=== PATIENT | male | born 1935 | race Caucasian/White ===

== ENCOUNTER 2020-02-09 02:34 | Outpatient (CLI) | payer MEDICARE, SELFPAY ==
--- NOTE | 2020-02-09 | DI.US_ITS ---
EXAM: US ABDOMEN RENAL CLINICAL HISTORY: H/O RENAL CELL CA RT [id number] AND PROSTATE CA, H/O NEPHRECTOMY TECHNIQUE: Ultrasound abdomen performed using standard protocol. COMPARISON: No exams were available for comparison FINDINGS: LIVER: Normal size and echogenicity. There is a 4 millimeter calcification in the posterior right lo be, likely representing a grand granuloma. No suspicious liver lesions are seen.. GALLBLADDER: No evidence of cholelithiasis. No evidence of wall thickening. No pericholecystic fluid identified. BILIARY SYSTEM: No intrahepatic or extrahepatic biliary ductal dilation. GREENE'S SIGN: Negative. KIDNEYS: Status post right nephrectomy. Left kidney: Left kidney shows mild compensatory hypertrophy, measuring 13.3 cm in length. Several s mall cysts are seen. The largest is in the midportion measuring 2.3 cm in greatest dimension. A 7 m illimeters stone is seen at the upper pole. Few other smaller calcifications are seen. There is no evidence of hydronephrosis. No suspicious mass is visible.. PANCREAS: Normal where visualized. SPLEEN: Not enlarged. Multiple small calcifications, consistent calcified granulomas. ABDOMINAL AORTA AND IVC: Visualized portions normal caliber. ASCITES: None seen. Bladder: Prevoid bladder bladder volume 123 cc. 0 cc postvoid residual. No bladder wall thickening, mass or calcification. Prostate: Not visualized. IMPRESSION: Status post right nephrectomy. Nonobstructing renal calculi. Several small renal cysts. No hydrone phrosis or mass. DATA REPOSITORY:
== END 2020-02-09 02:54 ==
PROVIDERS: PCP Family Medicine; Visit Provider Family Medicine
DX: C64.1 Malignant neoplasm of right kidney, except renal pelvis (principal); C61 Malignant neoplasm of prostate; Z90.5 Acquired absence of kidney; K76.89 Other specified diseases of liver; N20.0 Calculus of kidney; N28.1 Cyst of kidney, acquired
CPT/HCPCS: 76770; 76700

== ENCOUNTER → 2020-05-10 14:38 | Outpatient (BNVA) | payer MEDICARE, SELFPAY | PROVIDERS: PCP Family Medicine; Referring Provider Family Medicine; Visit Provider Urology | DX: C61 Malignant neoplasm of prostate (principal); R53.83 Other fatigue; N20.0 Calculus of kidney; C64.9 Malignant neoplasm of unspecified kidney, except renal pelvis; I10 Essential (primary) hypertension; Z90.5 Acquired absence of kidney | CPT/HCPCS: 99204 ==

== ENCOUNTER 2020-05-10 16:10 | Outpatient (REF) | payer MEDICARE, SELFPAY ==
[2020-05-10 19:31] LABS: Abs Immature Grans 0.02 10^3/uL (0.0-0.06); Absolute Basophil Count 0.06 10^3/uL (0.0-0.2); Absolute Eosinophil Count 0.31 10^3/uL (0.0-0.7); Absolute Lymphocyte Count 0.81 10^3/uL (1.2-3.4); Absolute Monocyte Count 0.68 10^3/uL (0.1-0.8); Absolute Neutrophil Count 8.43 10^3/uL (1.2-6.7); Basophils % 0.6; HCT 47.6 % (40.0-50.0); HGB 15.9 g/dL (13.5-17.5); Immature Grans % 0.2; Lymphocytes % 7.9; MCH 31.7 pg (27.0-33.0); MCHC 33.4 % (32.0-36.0); MCV 94.8 fL (80-95); MPV 10.5 fL (8.0-11.0); Monocytes % 6.6; Neutrophils % 81.7; Nucleated RBC 0 %; Platelet Count 206 10^3/uL (130-400); RBC 5.02 10^6/uL (4.36-5.78); RDW 12.1 % (11.8-14.1); RDW-SD 41.9 fL; WBC 10.31 10^3/uL (4.4-10.8)
[2020-05-10 23:53] LABS: ALT 22 U/L (16-63); AST 19 U/L (15-37); Albumin 3.7 g/dL (3.4-5.0); Alkaline Phosphatase 76 U/L (46-116); Anion Gap 9.2 mmol/L (3-11); BUN 19 mg/dL (7-18); Bilirubin, Total 0.5 mg/dL (0.2-1.0); CO2 26.8 mmol/L (21.0-32.0); CREATININE 1.17 mg/dL (0.70-1.30); Calcium 9.4 mg/dL (8.5-10.1); Chloride 105 mmol/L (98-107); Estimated GFR 59.54 (mL/min/1.73m2); Glucose 94 mg/dL (74-106); Potassium 4.5 mmol/L (3.5-5.1); Sodium 141 mmol/L (136-145); Total Protein 7.2 g/dL (6.4-8.2)
[2020-05-13 12:40] LABS: PSA, Diagnostic 0.6 ng/mL (0.0-6.5)
== END 2020-05-10 16:30 ==
LOC: LBN 16:10
PROVIDERS: PCP Family Medicine; Visit Provider Urology
DX: R53.83 Other fatigue (principal); C61 Malignant neoplasm of prostate
CPT/HCPCS: 80053; 84153; 84443; 85025

== ENCOUNTER 2020-05-11 15:54 | Emergency (ER) | payer MEDICARE, SELFPAY ==
[2020-05-11 15:59] VITALS: BP 155/81; PULSE 72; RESP 16; TEMP 36.6; O2SAT 97
--- NOTE | 2020-05-11 16:00 | DI.RAD_ITS ---
EXAM: XR FINGER LT RING EXAM DATE/TIME: CLINICAL HISTORY: Laceration R/O fracture. TECHNIQUE: 2D digital imaging was performed. COMPARISON: None. FINDINGS: BONES: No acute fracture is present. No bony destructive lesion is seen. JOINTS: No dislocation is present. SOFT TISSUE: There is a soft tissue defect at the medial aspect of the tip of the left ring finger. The soft tissue defect appears to extend to the underlying bone. No radiopaque foreign bodies are se en in the soft tissues. IMPRESSION: 1. No evidence of acute fracture or dislocation. 2. Soft tissue defect in the medial aspect of the tip of the left finger which appears to extend to t he underlying bone. DATA REPOSITORY: RADIATION DOSE DELIVERED:
--- NOTE | 2020-05-11 16:11 | ED.GENADUL_ITS ---
Discharge Plan Disposition Patient Disposition: HOME Condition: Stable Discharge Details Clinical Impression: Laceration of left ring finger with damage to nail w/o foreign body Primary Care Provider: Kay Healy ED Provider: Brooklyn Moses Home Meds and New Rx's Prescriptions: No Action cholecalciferol (vitamin D3) 25 mcg (1,000 unit) capsule 25 mcg PO DAILY RF: 0 zinc 50 mg tablet 50 mg PO DAILY RF: 0 losartan 100 mg tablet 100 mg PO DAILY RF: 0 ascorbate calcium (vitamin C) 500 mg tablet 1 gm PO DAILY RF: 0 Discharge Instructions Instructions: Finger Laceration (ED), Skin Adhesive Care (ED) Additional Instructions: The glue will start to slough off by itself in about 4 to 6 days. Keep clean and dry. You may gently clean it under running soap and water tomorrow. Allow to air dry at least 2 hours every day. Return for any signs of infection including redness, red streaks, swelling, drainage or any increased pain or concerns. The wound will heal by secondary intention. Follow up with primary care provider in 3-5 days. Return to ED sooner if any worsening or concerns. Increase oral fluids. Please take Tylenol or Ibuprofen w ith food every 4-6 hours as needed for pain and swelling. You were given a tetanus shot today. Referrals: Kay Healy [Primary Care Provider] - Medical Decision Making 84-year-old male presents to the ER with left ring finger laceration by a table saw which occurred approximately 2 hours ago. Patient has a wedge shaped laceration to the distal tip of his lateral nail bed. Bleeding is controlled upon arrival. He did take an Aleve prior to arrival. He does not know when his last tetanus shot was. He has full sensation and range of motion noted to the digit. No other complaints or injuries. Does have a past medical history of hypertension, kidney stones, prostate cancer and renal cell carcinoma. FINDINGS: Bones/joints: No acute fracture or dislocation. Soft tissues: There is a soft tissue defect with subjacent soft tissue swelling at the tip of ring finger, most pronounced medially with a defect c encroaches upon underlying osseous bone. IMPRESSION: Soft tissue defect/ulceration in tip of ring finger adjacent to distal phalanx with defect encroaches upon underlying osseous bone. No acute fracture or dislocation. Thank you for allowing us to participate in the care of your patient. Dictated and Authenticated by: Woodrow Greene DO [id number]: Tissue adhesive applied and patient tolerated well. junior staff accountant applied nonadherent dressing and discussed with patient home care and strict return instructions, verbalized understanding. HPI General Mode of arrival: ambulatory . Date/Time Provider Initiated Documentation: 05/11/20 16:07 . Limitations to Documentation: no limitations . Information obtained by: patient . HPI Narrative: 84-year-old male presents to the ER with left ring finger laceration by a table saw which occurred approximately 2 hours ago. Patient has a wedge shaped laceration to the distal tip of his lateral nail bed. Bleeding is controlled upon arrival. He did take an Aleve prior to arrival. He does not know when his last tetanus shot was. He has full sensation and range of motion noted to the digit. No other complaints or injuries. Does have a past medical history of hypertension, kidney stones, prostate cancer and renal cell carcinoma. Related Data Home Medications Medication Instructions Recorded Confirmed ascorbate calcium (vitamin C) 500 1 gm PO DAILY tab 03/18/20 05/11/20 mg tablet losartan 100 mg tablet 100 mg PO DAILY 03/18/20 05/11/20 cholecalciferol (vitamin D3) 25 25 mcg PO DAILY 05/10/20 05/11/20 mcg (1,000 unit) capsule zinc 50 mg tablet 50 mg PO DAILY 05/10/20 05/11/20 Allergies Allergy/AdvReac Type Severity Reaction Status Date / Time house dust Allergy Verified 05/11/20 16:01 General Stated Complaint: Laceration WOLFGANG: 4 Review of Systems All systems reviewed & are unremarkable except as noted in HPI and below Integumentary/Breasts Skin/Breast: Reports wounds (Left ring finger distal tip laceration) FORMERLY [facility], [facility] Medical History Actinic keratosis Hypertension Kidney stones Prostate cancer Renal cell carcinoma Surgical History H/O prostatectomy H/O right nephrectomy History of appendectomy Hx of tonsillectomy Social History Smoking/Tobacco Use Status: Never Alcohol Intake: never Substance use type: does not use Current gender identity: male Exam Narrative Exam Narrative: Constitutional: Alert and oriented x3. Appears stated age. Normal body habitus. Head: Normocephalic, no trauma. Chest: RRR, Normal S1, S2, distal pulses intact. Resp: Lungs clear to auscultation bilaterally, no wheezes, rales, or rhonchi. Skin: Capillary refill less than 2 sec. See skin assessment below Neurologic: Cranial nerves II-XII intact. Alert and oriented x 3. DTR's intact. Hematologic/Lymphatic: No ecchymosis, no lymphadenopathy. Skin Trauma: laceration left distal 4th finger Y-shaped, involves subcutaneous tissue and sensation intact Extrem Hand/finger images: 1. Approximately 1 cm wedge-shaped laceration noted to the distal tip of his left ring finger. Course Vital Signs Vital signs: Vital Signs Temperature 36.6 C 05/11/20 15:59 Pulse 72 05/11/20 15:59 Respiratory Rate 16 05/11/20 15:59 Blood Pressure 155/81 H 05/11/20 15:59 Pulse Oximetry 97 05/11/20 15:59 Temperature 36.6 C 05/11/20 15:59 Temperature Source Skin 05/11/20 15:59 Pulse 72 05/11/20 15:59 Respiratory Rate 16 05/11/20 15:59 Respiratory Effort Non-Labored 05/11/20 15:59 Blood Pressure 155/81 H 05/11/20 15:59 Blood Pressure Position Sitting 05/11/20 15:59 Pulse Oximetry 97 05/11/20 15:59 Oxygen Delivery Method Room Air 05/11/20 15:59 Oxygen Flow Rate 0 05/11/20 15:59 Pain Level 0 05/11/20 15:59
--- NOTE | 2020-05-11 16:50 | DI.VRAD_ITS ---
PROCEDURE INFORMATION: Exam: XR Left Finger(s) Exam date and time: 05/11/2020 4:39 PM Age: 84 years old Clinical indication: Other: Laceration, R/O FX TECHNIQUE: Imaging protocol: XR Left fingers. Views: Minimum 2 views. COMPARISON: No relevant prior studies available. FINDINGS: Bones/joints: No acute fracture or dislocation. Soft tissues: There is a soft tissue defect with subjacent soft tissue swelling at the tip of ring finger, most pronounced medially with a defect c encroaches upon underlying osseous bone. IMPRESSION: Soft tissue defect/ulceration in tip of ring finger adjacent to distal phalanx with defect encroaches upon underlying osseous bone. No acute fracture or dislocation. Dictated and Authenticated by: Woodrow Greene MD. Ordering:ANGELINE Barahona MD
== END 2020-05-11 17:05 | disposition home or self-care (01) ==
PROVIDERS: Emergency Provider Registered Nurse Emergency; PCP Family Medicine
DX: S61.311A Laceration without foreign body of left index finger with damage to nail, initial encounter (principal); W31.2XXA Contact with powered woodworking and forming machines, initial encounter; I10 Essential (primary) hypertension
CPT/HCPCS: 12001; 90471; 73140

== ENCOUNTER 2020-08-20 23:29 | Outpatient (REF) | payer MEDICARE, SELFPAY ==
[2020-08-20 21:27] LABS: Anion Gap 7.2 mmol/L (3-11); BUN 25 mg/dL (7-18); CO2 26.8 mmol/L (21.0-32.0); CREATININE 1.17 mg/dL (0.70-1.30); Chloride 107 mmol/L (98-107); Estimated GFR 59.54 (mL/min/1.73m2); Glucose 95 mg/dL (74-106); Potassium 4.2 mmol/L (3.5-5.1); Sodium 141 mmol/L (136-145)
== END 2020-08-20 23:49 ==
LOC: LBN 23:29
PROVIDERS: PCP Family Medicine; Visit Provider Family Medicine
DX: I10 Essential (primary) hypertension (principal)
CPT/HCPCS: 80048

== ENCOUNTER 2020-08-22 03:20 | Outpatient (CLI) | payer MEDICARE, SELFPAY ==
[2020-08-23 08:22] LABS: PSA, Diagnostic 0.5 ng/mL (0.0-6.5)
== END 2020-08-22 03:40 ==
PROVIDERS: PCP Family Medicine; Visit Provider Urology
DX: C61 Malignant neoplasm of prostate (principal)
CPT/HCPCS: 36415; 84153

== ENCOUNTER → 2020-08-30 13:01 | Outpatient (BNVA) | payer MEDICARE, SELFPAY | PROVIDERS: PCP Family Medicine; Referring Provider Family Medicine; Visit Provider Urology | DX: C61 Malignant neoplasm of prostate (principal); Z87.442 Personal history of urinary calculi; Z90.5 Acquired absence of kidney | CPT/HCPCS: 99213 ==

== ENCOUNTER 2021-01-24 02:18 | Outpatient (CLI) | payer MEDICARE, SELFPAY ==
[2021-01-24 16:55] LABS: PSA, Diagnostic 0.7 ng/mL (0.0-6.5)
== END 2021-01-24 02:19 | disposition home or self-care (01) ==
LOC: LBO 02:19
PROVIDERS: PCP Family Medicine; Visit Provider Urology
DX: C61 Malignant neoplasm of prostate (principal)
CPT/HCPCS: 36415; 84153

== ENCOUNTER → 2021-01-28 10:24 | Outpatient (BNVA) | payer MEDICARE, SELFPAY | PROVIDERS: PCP Family Medicine; Referring Provider Family Medicine; Visit Provider Urology | DX: C61 Malignant neoplasm of prostate (principal); N20.0 Calculus of kidney; C64.9 Malignant neoplasm of unspecified kidney, except renal pelvis; R53.83 Other fatigue | CPT/HCPCS: 99213; 99214 ==

== ENCOUNTER 2021-01-28 12:00 | Outpatient (REF) | payer MEDICARE, SELFPAY ==
[2021-02-05 14:41] LABS: 1,25-Dihydroxyvitamin D 44 pg/mL (18-64)
== END 2021-01-28 12:01 | disposition home or self-care (01) ==
LOC: LBN 12:00
PROVIDERS: PCP Family Medicine; Visit Provider Urology
DX: N20.0 Calculus of kidney (principal); R53.83 Other fatigue; C61 Malignant neoplasm of prostate; C64.9 Malignant neoplasm of unspecified kidney, except renal pelvis; K76.9 Liver disease, unspecified
CPT/HCPCS: 82652

== ENCOUNTER 2021-03-11 01:52 | Outpatient (CLI) | payer MEDICARE, SELFPAY ==
--- NOTE | 2021-03-11 07:45 | DI.US_ITS ---
Exam(s) US RENAL EXAM: US RENAL CLINICAL HISTORY: monitor known stone,RENAL CELL CA,C64.9,N20.0. TECHNIQUE: Gastelum scale, color and spectral Doppler were used. COMPARISON: No exams were available for comparison FINDINGS: Renal size in cm: Right: Surgically absent left: 14.1 cm by 6.4 x 6.6 cm Echogenicity: Normal Hydronephrosis: No Cyst or mass: Several small cysts. No suspicious masses. Nephrolithiasis: Stone at the upper pole of the left kidney is measured at 4 millimeters on today's e xam. Bladder:Nearly empty. Prevoid vol:8 cc Postvoid vol: Not performed Prostate surgically removed. IMPRESSION: 4 millimeter stone upper pole left kidney. No hydronephrosis. Status post right nephrectomy. DATA REPOSITORY:
== END 2021-03-11 02:12 ==
PROVIDERS: PCP Family Medicine; Visit Provider Urology
DX: C64.9 Malignant neoplasm of unspecified kidney, except renal pelvis (principal); N20.0 Calculus of kidney; Z90.5 Acquired absence of kidney
CPT/HCPCS: 76770

== ENCOUNTER 2021-04-23 12:04 | Outpatient (REF) | payer MEDICARE, SELFPAY ==
[2021-04-23 15:30] LABS: BUN 16 mg/dL (7-18); CREATININE 1.2 mg/dL (0.70-1.30); Calcium 9.1 mg/dL (8.5-10.1); Chloride 106 mmol/L (98-107); Estimated GFR 57.68 (mL/min/1.73m2); Glucose 93 mg/dL (74-106); Potassium 4.4 mmol/L (3.5-5.1); Sodium 143 mmol/L (136-145)
== END 2021-04-23 12:05 | disposition home or self-care (01) ==
LOC: NCHCN 12:04
PROVIDERS: PCP Family Medicine; Visit Provider Family Medicine
DX: I10 Essential (primary) hypertension (principal)
CPT/HCPCS: 80048

== ENCOUNTER 2021-05-01 02:53 | Outpatient (CLI) | payer MEDICARE, SELFPAY ==
[2021-05-01 09:09] LABS: Abs Immature Grans 0.02 10^3/uL (0.0-0.06); Absolute Basophil Count 0.05 10^3/uL (0.0-0.2); Absolute Eosinophil Count 0.26 10^3/uL (0.0-0.7); Absolute Lymphocyte Count 0.83 10^3/uL (1.2-3.4); Absolute Monocyte Count 0.56 10^3/uL (0.1-0.8); Absolute Neutrophil Count 6.69 10^3/uL (1.2-6.7); Basophils % 0.6; Eosinophils % 3.1; HCT 46.5 % (40.0-50.0); HGB 15.6 g/dL (13.5-17.5); Immature Grans % 0.2; Lymphocytes % 9.9; MCH 30.9 pg (27.0-33.0); MCHC 33.5 % (32.0-36.0); MCV 92.1 fL (80-95); MPV 9.6 fL (8.0-11.0); Monocytes % 6.7; Neutrophils % 79.5; Nucleated RBC 0 %; Platelet Count 176 10^3/uL (130-400); RBC 5.05 10^6/uL (4.36-5.78); RDW-SD 40.9 fL; WBC 8.41 10^3/uL (4.4-10.8)
[2021-05-01 22:05] LABS: PSA, Diagnostic 0.7 ng/mL (0.0-6.5)
== END 2021-05-01 02:54 | disposition home or self-care (01) ==
LOC: LBO 02:53
PROVIDERS: Urology; PCP Family Medicine; Visit Provider Internal Medicine Cardiovascular Disease
DX: C61 Malignant neoplasm of prostate (principal)
CPT/HCPCS: 36415; 84153; 85025

== ENCOUNTER 2021-05-05 09:28 | Emergency (ER) | payer MEDICARE, SELFPAY ==
[2021-05-05] VITALS (19 sets, daily range): BP systolic 114–163; BP diastolic 66–89; PULSE 54–89; RESP 9–16; TEMP 36.6; O2SAT 97–100
--- NOTE | 2021-05-05 09:00 | RT.EKG_ITS ---
APPROVED REPORT Exam: Resting ECG Reason for Exam: Chest pain Patient Location: E HR:69 bpm ECG Measurements Heart Rate 69 AXIS AK 149 P 62 QRSd 101 QRS -38 QT 411 T 35 QTc 441 Conclusion Sinus rhythm...normal P axis, V-rate 60- 99 Left axis deviation...QRS axis (-30,-90) Anterior infarct, possibly acute...ST >0.15mV, upright T, V2-V5 sinus rhythm at 69, ST elevation V1 V2 V3 consistent with anterior STEMI, [address] elevation noted in aVL, diffuse ST depression present
--- NOTE | 2021-05-05 09:10 | ED.GENADUL_ITS ---
Discharge Plan Disposition Patient Disposition: [facility] Discharge Details Clinical Impression: ST elevation (STEMI) myocardial infarction Primary Care Provider: Kay Healy ED Provider: Yuko Rowland Home Meds and New Rx's Prescriptions: No Action vitamin K2 100 mcg capsule 100 mcg PO DAILY RF: 0 cholecalciferol (vitamin D3) 25 mcg (1,000 unit) capsule 25 mcg PO DAILY RF: 0 zinc 50 mg tablet 50 mg PO DAILY RF: 0 losartan 100 mg tablet 50 mg PO DAILY RF: 0 ascorbate calcium (vitamin C) 500 mg tablet 1 gm PO DAILY RF: 0 metoprolol succinate 25 mg tablet extended release 24 hr 25 mg PO DAILY RF: 0 aspirin 81 mg tablet,delayed release (DR/EC) 81 mg PO DAILY RF: 0 Discharge Data Discharge Date/Time-TO BE ENTERED AT DEPARTURE: 05/05/21 10:41 Medical Decision Making Eric Mead is an 85-year-old man with a history of hypertension who presented to the emergency department chest pain. On exam patient is well and nontoxic- appearing. Benign cardiopulmonary exam. EKG shows STEMI. Plan for telemetry, IV placement, IV nitroglycerin infusion, screening labs, chest x-ray, cardiology consult. Exam/history at this time is not consistent with acute aortic pathology, sepsis, acute emergent intra-abdominal process, acute emergent intracranial process, pulmonary embolism. Patient denies any prior intracranial bleeding, known brain vascular abnormality, known brain malignancy, any surgery within the past 3 months, any active bleeding, including bloody/black diarrhea, any head trauma from the past 3 months, any prior lytic therapy, any history of stroke, recent CPR, recent vascular punctures, peptic ulcer disease, current anticoagulants. 0934 [facility] transfer [place] contacted, awaiting cardiology callback. Chest x-ray resulted as no acute process. 0945: Discussed patient with Dr. Ken of cardiology, initial recommendation for Plavix 300 mg, heparin bolus and infusion, hold lytics with plan for helicopter transfer. During same phone conversation change in plan based on helicopter transport time, plan for Plavix 75 mg, heparin bolus and infusion, tenecteplase lysis 20 mg IV, repeat EKG after lytics. On patient reassessment patient reporting 1 out of 10 chest pain on 5 mics per minute nitroglycerin infusion. Patient signed written consent for tenecteplase after risks and benefits discussed, including risks of intracranial bleeding, . I was notified by nursing that patient received 300 mg Plavix instead of change dose to 75 mg. I did discuss this with Dr. Ken of cardiology at [facility], who requests no change in plan otherwise, continue with heparin bolus and infusion continue with tenecteplase at 20 mg. Patient status discussed with patient's over the phone, all questions were answered. Patient reports mild increase in pressure sensation in chest from 1 out of 10 to 3 out of 10. Nitroglycerin increase to 10 mcg/min. Systolic blood pressure 116. Labs reviewed, troponin 0 0.13, potassium 3.8. DHART at bedside with patient, requesting 20 mEq p.o. potassium. Patient left the emergency department with DHART without further incident. Medical Records Medical records reviewed: Yes I reviewed the patient's medical records. Imaging Data Radiologic Study: Attestation: I personally reviewed and interpreted this imaging study as follows: Radiologist's impression: EXAM: XR PORTABLE CHEST AP CLINICAL HISTORY: chest pain TECHNIQUE: 2D digital imaging was performed. COMPARISON: No exams were available for comparison FINDINGS: LUNGS: Clear. Small portion of lung bases not included on the film. No pleural abnormality seen. HEART: Normal. Aorta tortuous. BONES: Degenerative changes. IMPRESSION: No acute pulmonary findings. Lab Data Lab results reviewed: Yes I reviewed the patient's lab results. Labs: Laboratory Tests Range/Units 05/05/21 05/05/21 05/05/21 09:44 09:44 09:44 WBC (4.4-10.8) 10^3/uL 8.76 RBC (4.36-5.78) 10^6/uL 5.36 Hgb (13.5-17.5) g/dL 16.5 Hct (40.0-50.0) % 48.8 MCV (80-95) fL 91.0 MCH (27.0-33.0) pg 30.8 MCHC (32.0-36.0) % 33.8 RDW (11.8-14.1) % 12.0 Plt Count (130-400) 10^3/uL 166 MPV (8.0-11.0) fL 9.8 Immature Gran % 0.5 Neutrophils % 82.4 Lymphocytes % 10.4 Monocytes % 4.0 Eosinophils % 2.1 Basophils % 0.6 Nucleated RBC % % 0 Absolute Neutrophils (1.2-6.7) 10^3/uL 7.23 H Absolute Lymphocytes (1.2-3.4) 10^3/uL 0.91 L Absolute Monocytes (0.1-0.8) 10^3/uL 0.35 Absolute Eosinophils (0.0-0.7) 10^3/uL 0.18 Absolute Basophils (0.0-0.2) 10^3/uL 0.05 PT Cancelled INR Cancelled APTT Cancelled Sodium (136-145) mmol/L 141 Potassium (3.5-5.1) mmol/L 3.8 Chloride (98-107) mmol/L 103 Carbon Dioxide (21.0-32.0) mmol/L 26.3 Anion Gap (3-11) mmol/L 11.7 H BUN (7-18) mg/dL 18 Creatinine (0.70-1.30) mg/dL 1.2 Estimated GFR/1.73 m2 (mL/min/1.73m2) 57.68 Glucose (74-106) mg/dL 144 H Calcium (8.5-10.1) mg/dL 9.4 Total Bilirubin (0.2-1.0) mg/dL 0.9 AST (15-37) U/L 18 ALT (16-63) U/L 21 Alkaline Phosphatase (46-116) U/L 81 Troponin I (<0.06) ng/mL 0.13 H* Total Protein (6.4-8.2) g/dL 7.5 Albumin (3.4-5.0) g/dL 4.0 Range/Units 05/05/21 05/05/21 10:10 12:35 WBC (4.4-10.8) 10^3/uL RBC (4.36-5.78) 10^6/uL Hgb (13.5-17.5) g/dL Hct (40.0-50.0) % MCV (80-95) fL MCH (27.0-33.0) pg MCHC (32.0-36.0) % RDW (11.8-14.1) % Plt Count (130-400) 10^3/uL MPV (8.0-11.0) fL Immature Gran % Neutrophils % Lymphocytes % Monocytes % Eosinophils % Basophils % Nucleated RBC % % Absolute Neutrophils (1.2-6.7) 10^3/uL Absolute Lymphocytes (1.2-3.4) 10^3/uL Absolute Monocytes (0.1-0.8) 10^3/uL Absolute Eosinophils (0.0-0.7) 10^3/uL Absolute Basophils (0.0-0.2) 10^3/uL PT 10.8 INR 1.1 APTT 23.1 Sodium (136-145) mmol/L Potassium (3.5-5.1) mmol/L Chloride (98-107) mmol/L Carbon Dioxide (21.0-32.0) mmol/L Anion Gap (3-11) mmol/L BUN (7-18) mg/dL Creatinine (0.70-1.30) mg/dL Estimated GFR/1.73 m2 (mL/min/1.73m2) Glucose (74-106) mg/dL Calcium (8.5-10.1) mg/dL Total Bilirubin (0.2-1.0) mg/dL AST (15-37) U/L ALT (16-63) U/L Alkaline Phosphatase (46-116) U/L Troponin I (<0.06) ng/mL Cancelled Total Protein (6.4-8.2) g/dL Albumin (3.4-5.0) g/dL ECG Data Attestation: I personally reviewed and interpreted this ECG (s) as follows: Interpretation: EKG 9: 34 shows sinus rhythm at 69, ST elevation V1 V2 V3 consistent with anterior STEMI, [address] elevation noted in aVL, diffuse ST depression present EKG 10: [address] elevation V1 V2 V3 consistent with anterior STEMI, no major change from prior today HPI General Mode of arrival: EMS . Date/Time Provider Initiated Documentation: 05/05/21 09:34 . Limitations to Documentation: no limitations . Information obtained by: patient, EMS, RN notes reviewed and old records reviewed . HPI Narrative: Eric Mead is an 85-year-old man with a history of renal cell carcinoma in the past, hypertension presenting to emergency department with chest pain. Patient reports that he sees Dr. Justice of [facility], and is scheduled to have a catheterization next week. He reports that he has been diagnosed with angina. Patient states that over the past few days he has been having a pressure sensation intermittently in his chest that he has felt was related to heartburn/indigestion. Patient reports that he has been taking baking soda for this and has had some relief. Patient reports that he woke up this morning with similar pain, took baking soda, did not have any relief. Patient reports the pain was initially quite sharp. He reports that pain has decreased significantly after having nitroglycerin x2 per EMS. He reports pain is now 2 out of 10 and is more of a pressure sensation that is sharp pain. He denies any other pain, shortness of breath, vomiting, diarrhea, fever, numbness, weakness. Patient reports that he has had only water and baking soda this morning. He did receive 324 mg of aspirin from EMS as well as nitroglycerin sublingual x2. Related Data Home Medications Medication Instructions Recorded Confirmed ascorbate calcium (vitamin C) 500 1 gm PO DAILY tab 03/18/20 05/05/21 mg tablet losartan 100 mg tablet 50 mg PO DAILY 03/18/20 05/05/21 cholecalciferol (vitamin D3) 25 25 mcg PO DAILY 05/10/20 05/05/21 mcg (1,000 unit) capsule zinc 50 mg tablet 50 mg PO DAILY 05/10/20 05/05/21 vitamin K2 100 mcg capsule 100 mcg PO DAILY 01/28/21 05/05/21 aspirin 81 mg PO DAILY 05/05/21 05/05/21 metoprolol succinate 25 mg PO DAILY 05/05/21 05/05/21 Allergies Allergy/AdvReac Type Severity Reaction Status Date / Time house dust Allergy Verified 05/05/21 09:38 General WOLFGANG: 4 Review of Systems Narrative: Review of constitutional: denies fevers Eyes: denies eye pain ENT: denies ear pain, dental pain, sore throat Cardiovascular: denies edema, reports chest pain Respiratory: denies SOB, cough GI: denies abdominal pain, vomiting, diarrhea : denies flank pain MSK: denies back pain, neck pain, arthralgias, myalgias Skin: denies rash Neuro: denies headaches, numbness, weakness PFSH Medical History Actinic keratosis Hypertension Kidney stones Prostate cancer Renal cell carcinoma Surgical History H/O prostatectomy H/O right nephrectomy History of appendectomy Hx of tonsillectomy Social History Smoking/Tobacco Use Status: Never Smoking risk assessment performed?: Yes Alcohol Intake: never Substance use type: does not use Current gender identity: male Do you feel safe at home: Yes Do you feel safe in your relationship?: Yes Exam Narrative Exam Narrative: Constitutional: well and [id number], pleasant, conversing normally HENT: head atraumatic/normocephalic/normal inspection, mucous membranes moist Eyes: conjunctiva normal, sclera normal, pupils 3mm b/l Neck: no stridor, normal ROM, trachea midline Chest: normal inspection Resp: normal work of breathing, LCTAB Cardio: normal rate, normal rhythm, no murmur appreciated GI: abdomen soft, non-tender, non-distended Back: normal inspection, no rash Skin: warm, dry, normal color, no rash Neuro: alert, not altered, grossly non-focal, normal tone Ext: no edema, no posterior calf TTP Psych: normal mood, normal affect, normal behavior Critical Care Time Critical Care Time Critical Care Time: Yes Total Critical Care Time: 35 Attestation: I have spent 35 minutes of critical care time with this critically ill patient including frequent bedside reassessments, management of IV infusions, and discussions with family and consultants.
--- NOTE | 2021-05-05 09:30 | DI.RAD_ITS ---
Exam(s) XR PORTABLE CHEST AP EXAM: XR PORTABLE CHEST AP CLINICAL HISTORY: chest pain TECHNIQUE: 2D digital imaging was performed. COMPARISON: No exams were available for comparison FINDINGS: LUNGS: Clear. Small portion of lung bases not included on the film. No pleural abnormality seen. HEART: Normal. Aorta tortuous. BONES: Degenerative changes. IMPRESSION: No acute pulmonary findings. DATA REPOSITORY: RADIATION DOSE DELIVERED:
[2021-05-05] MEDS: nitroGLYcerin in D5W 50 MG/250 ML BTL IV (09:53)
[2021-05-05] MEDS: Normal Saline Flush 10 ML SYR IVP (09:53)
[2021-05-05 09:57] LABS: Abs Immature Grans 0.04 10^3/uL (0.0-0.06); Absolute Basophil Count 0.05 10^3/uL (0.0-0.2); Absolute Eosinophil Count 0.18 10^3/uL (0.0-0.7); Absolute Lymphocyte Count 0.91 10^3/uL (1.2-3.4); Absolute Monocyte Count 0.35 10^3/uL (0.1-0.8); Absolute Neutrophil Count 7.23 10^3/uL (1.2-6.7); Basophils % 0.6; Eosinophils % 2.1; HCT 48.8 % (40.0-50.0); HGB 16.5 g/dL (13.5-17.5); Immature Grans % 0.5; Lymphocytes % 10.4; MCH 30.8 pg (27.0-33.0); MCHC 33.8 % (32.0-36.0); MPV 9.8 fL (8.0-11.0); Neutrophils % 82.4; Nucleated RBC 0 %; Platelet Count 166 10^3/uL (130-400); RBC 5.36 10^6/uL (4.36-5.78); WBC 8.76 10^3/uL (4.4-10.8)
[2021-05-05] MEDS: Tenecteplase 50 MG KIT 20 MG IVP (10:07)
--- NOTE | 2021-05-05 10:15 | RT.EKG_ITS ---
APPROVED REPORT Exam: Resting ECG Reason for Exam: chest pain Patient Location: E HR:62 bpm ECG Measurements Heart Rate 62 AXIS IN 153 P 65 QRSd 98 QRS -40 QT 424 T 68 QTc 431 Conclusion Sinus rhythm...normal P axis, V-rate 60- 99 Left anterior fascicular block...axis(240,-40), init forces inf Low voltage, precordial leads...precordial leads <1.0mV Borderline ST elevation, anterior leads...ST >0.15mV in V1-V4 sinus rhythm at 69, ST elevation V1 V2 V3 consistent with anterior STEMI, [address] elevation noted in aVL, diffuse ST depression present
[2021-05-05 10:21] LABS: ALT 21 U/L (16-63); AST 18 U/L (15-37); Alkaline Phosphatase 81 U/L (46-116); Anion Gap 11.7 mmol/L (3-11); BUN 18 mg/dL (7-18); Bilirubin, Total 0.9 mg/dL (0.2-1.0); CO2 26.3 mmol/L (21.0-32.0); CREATININE 1.2 mg/dL (0.70-1.30); Calcium 9.4 mg/dL (8.5-10.1); Chloride 103 mmol/L (98-107); Estimated GFR 57.68 (mL/min/1.73m2); Glucose 144 mg/dL (74-106); Potassium 3.8 mmol/L (3.5-5.1); Sodium 141 mmol/L (136-145); Total Protein 7.5 g/dL (6.4-8.2)
[2021-05-05 10:23] LABS: Troponin I 0.13 ng/mL (<0.06)
[2021-05-05 10:28] LABS: INR 1.1 (0.9-1.1); PTT Activated 23.1 sec (21.0-27.5); Prothrombin Time 10.8 sec (9.3-11.0)
[2021-05-05] MEDS: Potassium Chloride 20 MEQ TABCR PO (10:36)
== END 2021-05-05 10:41 | disposition short-term general hospital (02) ==
PROVIDERS: Emergency Provider Student in an Organized Health Care Education/Training Program; PCP Family Medicine
DX: I21.3 ST elevation (STEMI) myocardial infarction of unspecified site (principal)
CPT/HCPCS: 36415; 80053; 93005; 96365; 96366; 96367; 96375; 96376; 99291; 71045; 84484; 85025; 85610; 85730; 93010; J3101

== ENCOUNTER 2021-05-21 09:00 | Outpatient (RCR) | payer MEDICARE, SELFPAY ==
--- OUTSIDE RECORDS SUMMARY | 2021-05-21 14:50 | XMS_ITS ---
Care Plan - [facility] Created on:May 21, 2021 Patient:Eric Mead Sex:Male :[id number] Author Organization [facility] Address [address] [phone] Phone Care Team Providers Name Role Phone Miesha GARCIA Primary Care Provider [phone] SEE THE VISIT Luis M CHOPRA Unavailable +1 SEE THE VISIT Mynor CHOPRA, Brenda Unavailable +1 SEE THE VISIT
--- OUTSIDE RECORDS SUMMARY | 2021-05-21 14:50 | XMS_ITS ---
:1935 Author Organization [facility] Address [address] [address] Phone Care Team Providers Name Role Phone Jerryins DO Primary Care Provider +1 SEE THE VISIT Luis M CHOPRA Unavailable +1 SEE THE VISIT Brenda Lowe MD Unavailable +1 SEE THE VISIT Problems Includes: Active, inactive, and resolved Problems All Visits Onset Date - Resolved Date - Provider Condition St atus Time Time Actinic keratosis 11/20/2016 - Philippe Lowe MD Active 12:00AM Note: Unchanged Oth skin changes due to chr sun 11/20/2016 - 12:00AM Brenda Lowe MD Active exposure Note: Unchanged Essential Hypertension 10/23/2014 - 12:00AM Sy Rabins DO Active Tremor 10/23/2014 - 12:00AM Sy Rabins DO Active Large Intestine Neoplasm, 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 - 12: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 Sy Rabins DO Active - Tubular Adenoma Prostate Gland Neoplasm 09/05/2013 - 12:00AM Sy Rabins DO Active Malignant Never a Smoker 07/07/2011 - 12:00AM Tamiko Arroyo PA-C Active OTH CHR DRMTIT SOLAR RAD 07/07/2011 - 12:00AM Tamiko Arroyo PA-C Active Note: Stable Plan of Treatment Findings Encounter Date Ordered follow-up visit in 9 months New Patient/Consult with Melo Alas 11/19/2014 Ghanshyam CHOPRA Assessments Includes: Assessments for all patient encounters Findings Encounter Date Benign tubular adenoma of the large Subsequent Wellness Visi t - Medicare 11/18/2016 intestine with Sy Rabins DO Essential hypertension Subsequent Wellness Visit - Medicare 11/18/2016 with Etelvina Manley DO Malignant neoplasm of the prostate Subsequent Wellness Visit - Medicare 11/18/2016 gland with Etelvina Manley DO Familial (benign essential) tremor New Patient/Consult with Melo Alas 11/19/2014 Ghanshyam CHOPRA Essential hypertension Physical with Etelvina Manley DO 10/23/2014 Malignant neoplasm of the prostate Physical with Sy Jerryins D O 10/23/2014 gland Benign tubular adenoma of the large Physical with Etelvina Manley DO 09/05/2013 intestine Malignant neoplasm of the prostate Physical with Sy Jerryins D O 09/05/2013 gland Medical Equipment - Implanted Devices Includes: Current and historical DevicesNo Medical Equipment Recorded Medications Includes: Current and historical Medications Current Medications (continue as prescribed) Losartan Potassium 50 MG Oral Tablet 10/07/2020 Provider: Etelvina Manley DO Diagnosis: Take one tablet daily Suprep Bowel Prep Kit 17.5-3.13-1.6 GM/177ML Oral 10/27/2019 Provider: Mario Asencio MD Solution Diagnosis: as directed by the office KP Vitamin E 100 UNIT Oral Capsule 10/27/2019 Provider: Diagnosis: Past Medications on file Losartan Potassium 50 MG Oral Tablet 01/11/2020 - 10/07/2020 Pro vider: Etelvina Manley DO Diagnosis: Take one tablet daily Losartan Potassium 50 MG Oral Tablet 10/18/2019 - 01/11/2020 Pro vider: Etelvina Manley DO Diagnosis: Take one tablet daily Aspirin 81MG Oral Tablet Delayed Release 11/26/2017 - 10/27/2019 Provider: Diagnosis: Lipitor 10 MG Tablet 11/18/2015 - 12/03/2015 Provider: Etelvina Manley DO Diagnosis: Mixed hyperlipidemia Once a day Medication [facility] 11/23/2014 - 11/18/2016 Provide r: Diagnosis: Systolex Lisinopril 10 MG OR TABS 10/23/2014 - 11/23/2014 Provider: Etelvina Manley DO Diagnosis: HYPERTENSION NOS Suprep Bowel Prep Kit 09/12/2013 - 10/23/2014 Provider: Ra rayshawn June MD 17.5-3.13-1.6 GM/177ML OR SOLN Diagnosis: per physicians instructions Aspirin 325 MG OR TABS 09/05/2013 - 11/26/2017 Provider: Diagnosis: Medications Administered Includes: Administered Medications in patient's chartNo Administered Medications Recorded Vital Signs Includes: Vital Signs from 05/21/2018 through 05/21/2021 Vital Name 10/27/2019 09:15A 10/17/2019 10:02A Height (in) 70 70 Weight (lb) 183.4 182 Body Mass Index (kg/m2) 26.3 26.1 Body Surface Area (m2) 2.01 2.01 Blood Pressure Sitting R 160/90 BP Cuff Size Regular Pulse Rate-Sitting (bpm) 74 Pulse Rhythm Regular Oxygen Saturation (%) 96 Note: cc:jerryins Results Includes: Results from 05/21/2018 through 05/21/[address] [facility] Ordered by Mario Asencio MD on 11/01/[address] [place] [address], [facility] Collected: 11/01/2019 Reported: 11/06/2019 tel: 16:04 Surgical Pathology See Note None Note: [facility] [address] [place] [address] Fax: [email or web address] Surgical Pathology Report [facility] ([facility]) PATIENT: DUONG MYERS Specimen #: [id number] [facility] Rec #: [id number] (Age)/Sex: 1935 (Age: 84) M Obtained: 11/01/2019 Received: 11/03/2019 Reported: 11/06/2019 Physician: Mario Asencio MD Location: [facility] Testing [place] [address], unless otherwise indicated. Diagnosis: Colon , descending, polypectomy [id number]: - Tubular adenomas, low grade. [facility]/11/05 Tonny Quinones M.D.,Ph.D Report Electronically Signed Spec imen(s) Received: A:Colon, descending, polypectomy [id number] Clinical History: High risk colon cancer surveillance: Personal history of colonic polyps A. p olyp x2 Microscopic Description: Additional deeper levels are performed in the evalu ation of this specimen supporting the above mentioned diagnosis. Gross Description: Received is one glass slide(s) and one block(s) labeled with patient's name and accession number [id number]. Technical component performed at [facility], [address] [facility] [address]. Also received is the corresponding requisition. Per clinician's report, the gross description is as foll ows: Specimen received in formalin labeled with the patient's name and . Specime n consists of 3 piece(s) of tang tissue measuring 1.0 x 0.5 x 0.2 cm in aggregat e. The specimen is submitted in 1 cassette. The PC portion of this specimen was perf ormed by [employer], [address] [place] [address]. VEU/veu/11/02 END OF REPORT Reviewed by Mario Asencio MD on 11/07/2019 ; All test results are final unless otherwise noted. SPECIAL NOTE [facility] Ordered by Etelvina Manley DO on 10/17/[address], [address], [address] Collected: 10/20/2019 Reported: tel: 10/20/2019 17:49 SPECIAL NOTE See Note None Note: Requisition# [id number] failed to ma tch an existing report with that requisition number. To avoid a potential conflict, t he requisition number reported in the HL7 messages will be changed to {[id number]} . Reviewed on 11/03/2019; All test result s are final unless otherwise noted. Occult Blood (MCR Screen) Fecal, [facility] Immunoassay Ordered by Etelvina Manley DO on 10/17/[address], [place] [address], [place], [address] Collected: 10/17/2019 Reported: 10/20/2019 tel:[phone] 17:31 Occult Scr/Immunoassay Negative (NEGATIVE) None Reviewed on 11/03/2019; All test result s are final unless otherwise noted. Reported Physicians [facility] Ordered by Etelvina Manley DO on 10/17/[address], [facility] [address], [place], [address] Collected: 10/17/2019 Reported: 10/20/2019 tel:[phone] 17:49 Reported Physicians See Note None Note: Reported Physicians:Ordering: Etelvina LancasterAttending: ETELVINA MANLEY Reviewed on 11/03/2019; All test result s are final unless otherwise noted. T4 Free [facility] Ordered by Etelvina Manley DO on 09/25/[address], [place] [address], [place], [address] Collected: 10/09/2019 Reported: tel:[phone] 10/09/2019 13:38 FT4 1.32 ng/dl (0.83-1.74) None Reviewed by Etelvina Manley DO on 10/09/2019; All test results are final unless otherwise noted. T3 Free [facility] Ordered by Etelvina Manley DO on 09/25/[address], [place] [address], [place], [address] Collected: 10/09/2019 Reported: tel:[phone] 10/09/2019 13:38 FT3 314.44 pg/dl (230.00-420.00) None Reviewed by Miesha GARCIA on 10/09/2019; All test results are final unless otherwise noted. U/A-CII,Complete with reflx Culture Urine [facility] Ordered by Etelvina Manley DO on 09/25/[address], [place] [address], [place], [address] Collected: 10/09/2019 Reported: 10/09/2019 tel:[phone] 09:49 CII Screen Not Indicated None Mucus Present (Not Present) A (Abnormal) Squamous Epithelial 1.00 /HFP (0.00-4.00) None U-Bilirubin Negative (Negative) None U-Blood Negative (Negative) None U-Clarity Clear (Clear) None U-Color Yellow (Yellow,Straw,Colorless) None U-Glucose Negative (Negative) None U-Ketones Negative (Negative) None U-Leukocyte Esterase Negative (Negative) None U-Nitrite Negative (Negative) None U-PH 6.0 (5.0-8.0) None U-Protein Negative (Negative) None U-RBC 1.00 /HPF (0.00-2.00) None U-Specific Altura 1.016 (1.000-1.060) None U-Urobilinogen Negative (Negative) None U-WBC 4.00 /HPF (0.00-4.00) None Reviewed by Etelvina Manley DO on 10/09/2019; All test results are final unless otherwise noted. PSA (SCREENING) [facility] Ordered by Miesha GARCIA on 09/25/[address], [place] [address], [place], [address] Collected: 10/09/2019 Reported: 10/09/2019 tel:[phone] 13:36 PSA (Screen) 0.47 ng/ml (0.00-4.00) None Note: Beginning 11/08/17 PSA'S are being performed using the Siemens [employer] XP chemiluminescent method. Values obtained from different assay methods cannot be used interchangeably. Reviewed by Etelvina Manley DO on 10/09/2019; All test results are final unless otherwise noted. TSH [facility] Ordered by Miesha GARCIA on 09/25/2019 [address] , [place] [address], [place], [address] Collected: 10/09/2019 Reported: tel:[phone] 10/09/2019 13:37 TSH3UL 2.483 mIu/mL (0.350-4.670) None Note: Effective 08/25/2010 , please note the change in TSH3UL reference range. Reviewed by Etelvina Manley DO on 10/09/2019; All test results are final unless otherwise noted. Comprehensive metabolic [facility] Ordered by Miesha GARCIA on 09/25/2019 [address] , [place] [address], [place], [address] Collected: 10/09/2019 Reported: 10/09/2019 tel:[phone] 13:07 A/G 2.2 (1.0-1.5) H (High) ALB 4.1 g/dL (3.2-4.8) None ALP 73 U/L (46-116) None ALT(PT) 13 U/L (10-49) None AST(OT) 18 U/L (0-34) None B/C Ratio 14.3 Ratio (12.0-20.0) None Bun 15 mg/dL (9-23) None Ca 9.1 mg/dL (8.7-10.4) None cGFR >60.00 ML/MIN/1.73M2 (>60.00) None Note: PLEASE NOTE: IF PATIENT IS OF AFRI CAN MOLDOVAN / BLACK DESCENT MULTIPLY RESULTS BY 1.210 CL 104 mmol/L (99-109) None Crea 1.1 mg/dL (0.7-1.3) None Glob 1.9 g/dL (1.9-3.7) None Glu 96 mg/dL (74-106) None K 4.3 mmol/L (3.5-5.5) None NA 139 mmol/L (132-146) None Tbil 0.8 mg/dL (0.0-1.2) None TCO2 31 mmol/L (20-31) None TP 6.0 g/dL (5.7-8.2) None Reviewed by Etelvina Manley DO on 10/09/2019; All test results are final unless otherwise noted. Lipid Profile w/Reflex Direct LDL(Q#[id number], [facility] LC#[id number]) Ordered by Etelvina Manley DO on 09/25/[address], [address], [place], [address] Collected: 10/09/2019 Reported: 10/09/2019 tel:[phone] 13:07 DHDL 62 mg/dL None Note: Low (undesirable, high risk) < 40H igh (desirable, low risk) >60 Chol 182 mg/dL (10-200) None Note: DESIRABLE - < 200Borderline - 200 - 240High - > 240 HDL Risk 2.9 (0.0-5.0) None LDL 97.4 (<99.0) None TGL 114 mg/dL (0-150) None Note: Normal < 150B orderline High- 150 - 199High- 200 - 499Very High- > 500 Reviewed by Etelvina Manley DO on 10/09/2019; All test results are final unless otherwise noted. CBC (inc diff and platelet count)(Q#[id number], [facility] LC#[id number]) Ordered by Etelvina Manley DO on 09/25/[address], [address], [place], [address] Collected: 10/09/2019 Reported: 10/09/2019 tel:[phone] 09:46 BA# 0.0 3/uL (0.0-0.2) None BA% 0.4 % (0.0-2.5) None EO# 0.2 3/uL (0.0-0.7) None EO% 2.3 % (0.0-7.0) None Hematocrit (Hct) 47.0 % (40.9-49.7) None Hemoglobin (Hgb) 15.8 g/dL (13.9-17.1) None IG# 0.04 x10*3/uL (0.00-0.03) H (High) IG% 0.50 % (0.00-1.00) None LY# 1.1 3/uL (0.5-3.2) None LY% 14.2 % (10.0-50.0) None MCH 30.7 Pg (26.0-33.0) None MCHC 33.6 g/dL (31.0-36.0) None MCV 91 fL (81-97) None MO# 0.6 3/uL (0.0-0.9) None MO% 7.1 % (0.0-12.0) None NE# 6.0 3/uL (2.0-7.8) None NE% 75.5 % (37.0-80.0) None NRBC# 0.00 3/uL (0.00-0.01) None NRBC% 0.00 % (0.00-0.20) None Platelet Count 190 3/uL (140-440) None Red Blood Cell Count (RBC) 5.15 6/uL (4.50-5.70) None RDW 11.9 % (11.5-14.5) None White Blood Cell Count (WBC) 7.9 3/UL (3.8-10.6) None Reviewed by Etelvina Manley DO on 10/09/2019; All test results are final unless otherwise noted. Reported Physicians [facility] Ordered by Etelvina Manley DO on 09/25/[address], [facility] [address], [place], [address] Collected: 10/09/2019 Reported: 10/09/2019 tel: 14:42 Reported Physicians See Note None Note: Reported Physicians:Ordering: Etelvina LancasterAttending: ETELVINA MANLEY Reviewed by Etelvina Manley DO on 10/09/2019; All test results are final unless otherwise noted. Hepatic Function Panel [facility] Ordered by Etelvina Manley DO on 06/10/[address], [address], [place], [address] Collected: 06/10/2018 Reported: tel: 06/10/2018 12:51 Note: cc: Melissa Do ALB 4.0 g/dL (3.2-4.8) None ALP 73 U/L (46-116) None ALT(PT) 16 U/L (10-49) None AST(OT) 20 U/L (0-34) None DBil 0.2 mg/dL (0.0-0.3) None Glob 2.1 g/dL (1.9-3.7) None IBIL 0.5 mg/dl (0.0-1.0) None Tbil 0.7 mg/dL (0.0-1.2) None TP 6.1 g/dL (5.7-8.2) None Reviewed on 06/13/2018; All test result s are final unless otherwise noted. Reported Physicians [facility] Ordered by Etelvina Manley DO on 06/10/[address], [address], [place], [address] Collected: 06/10/2018 Reported: 06/10/2018 tel: 13:00 Reported Physicians See Note None Note: Reported Physicians:Ordering: Etelvina LancasterAttending: Marifer MANLEY To: Melissa Do Reviewed on 06/13/2018; All test result s are final unless otherwise noted. PSA, Ultrasensitive [facility] Ordered by Etelvina Manley DO on 11/22/[address], [address], [place], [address] Collected: 06/10/2018 Reported: 06/13/2018 tel: 17:02 Note: cc: Melissa DoTESTING PERFORM ED AT: [facility], [address] [facility], [place], [place], [address], REAL ESTATE TRANSACTION COORDINATOR: GRISELDA SAMSON MD,PHD,[place] PSA, ICMA 0.23 NG/ML None Note: REFERENCE RANGES FOR PSA: LESS TH AN 0.10 NG/ML AFTER RADICAL PROSTATECTOMY. 4.0 NG/ML OR LESS IN HEALTHY MALES WITHO UT PROSTATECTOMY. PSA VALUES OBTAINED WITH DIFFERENT ASSAY METHODS OR KITSCANNOT BE USED INTERCHANGEABLY. THIS TEST WAS PERFORMED USING THE [employer] DXIM ETHOD. PSA, ICMA IS NOT TO BE USED A DIAGNOSTICPROCEDURE WITHOUT CONFIRMATION OF THE DIAGNOSIS BY ANOTHERESTABLISHED PRODUCT OR PROCEDURE. THE LOWER LIMIT OF ACCURATE QUANTIFICATION FOR THIS ASSAY IS0.02 NG/ML. PSA VALUES LESS THAN 0.02 NG/ML CANNOT BEACCURATELY MEASURED AND WILL BE REPORTED LESS THAN 0.02NG/ML. SPEC IMENS WITH PSA LEVELS BELOW THE LOWER LIMIT OFACCURATE QUANTIFICATION SHOULD BE CONS IDERED NEGATIVE. INPATIENTS WITH A NEGATIVE RESULT FOR POST PROSTATECTOMY P SA,SERIAL MONITORING OF PSA LEVELS AT REGULAR INTERVALS, ALONGWITH PHYSICAL EXAMINATIO NS AND OTHER TESTS, MAY HELP TODETECT RECURRENT PROSTATE CANCER. Psa,Ultrasen send out None Reviewed on 06/14/2018; All test result s are final unless otherwise noted. Reported Physicians [facility] Ordered by Etelvina Manley DO on 11/22/[address] [facility] [address], [place], [address] Collected: 06/10/2018 Reported: 06/13/2018 tel: 17:32 Reported Physicians See Note None Note: Reported Physicians:Ordering: Etelvina LancasterAttending: Marifer MANLEY To: Melissa Do Reviewed on 06/14/2018; All test result s are final unless otherwise noted. Social History Description Last Updated Amount of sleep was 8.0 hours/day 10/17/2019 DME in home: grab bars in shower/tub 10/17/2019 Exercising regularly 10/17/2019 Housing with smoke detectors 10/17/2019 Lives in private residence 10/17/2019 No caffeine use 10/17/2019 Not using alcohol 10/17/2019 Not using drugs 10/17/2019 Using a seatbelt 10/17/2019 Using sunscreen 10/17/2019 No tobacco use 12/09/2018 Smoking status : Never smoker 12/09/2018 Currently 09/12/2013 Lives with spouse 09/12/2013 Not using alcohol 09/12/2013 Retired from work 09/12/2013 Procedures and Surgical History Includes: Procedures from 05/21/2018 through 05/21/2021 Procedures Code Diagnosis Performing Service Location Service Date Provider Surg Path/Gross & 96[address] Other Mario MARIEG [place] 06/2020 Microscopic exam, hemorrhoids, Laboratory Level IV Benign neoplasm (Technical of descending Component) colon, 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 w/o bleeding Colonoscopy 57749 Benign neoplasm Mario Asencio MD [facility] 06/2020 W/removal of of descending [facility] Polyps colon, 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 w/o bleeding, [place] [address] Occlusion and Behzad Zepeda IMG Imaging B [facility] 10/27/2019 Extracranial stenosis of MD Artery (Waiver of bilateral carotid Liability arteries Statement on File) PQRI Most recent 3080F Malignant Etelvina Manley DO [facility] 2019 diastolic bp neoplasm of greater than or prostate, equal to 90mmH Essential (primary) hypertension, Unsp symptoms and signs w cognitive functions and awareness, Body mass index [BMI] 26.0-26.9, adult PQRI Most recent 3077F Malignant Etelvina Manley DO [facility] 2019 systolic bp neoplasm of greater than or prostate, equal to 140mmH Essential (primary) hypertension, Unsp symptoms and signs w cognitive functions and awareness, Body mass index [BMI] 26.0-26.9, adult Subsequent Annual G0439 Encntr for Etelvina Manley DO [facility] 10/17 Wellness Visit general adult medical exam w/o abnormal findings, Personal history of colonic polyps, Occlusion and stenosis of bilateral carotid arteries, Benign neoplasm of colon, unspecified Toz-Lophhbovh-Vajt G0328 Encounter for Etelvina Manley DO [facility] 0 10/17/2019 l Occult Blood Ia screening for Laboratory malignant neoplasm of oth sites Venipuncture 76763 Malignant Etelvina Manley DO [facility] [place] 10/09/2019 (Waiver of neoplasm of Laboratory Liability prostate, Statement on File) Essential (primary) hypertension, Vitamin D deficiency, unspecified Lab-Hemogram & 18277 Malignant Etelvina Manley DO [facility] 10/09/19 20 Platelet Count neoplasm of Laboratory (CBC) prostate, Essential (primary) hypertension, Vitamin D deficiency, unspecified Lab-Lipid/coronary 46677 Essential Etelvina Manley DO [facility] 09/23 Risk (primary) Laboratory hypertension, Malignant neoplasm of prostate, Vitamin D deficiency, unspecified Lab-Comprehensive 64235 Malignant Etelvina Manley DO [facility] [place] 10/09 Metabolic Panel neoplasm of Laboratory prostate, Essential (primary) hypertension, Vitamin D deficiency, unspecified Lab-Tsh 89707 Essential Etelvina Manley DO [facility] [place] 10/09/2019 (primary) Laboratory hypertension, Malignant neoplasm of prostate, Vitamin D deficiency, unspecified Lab-Prostate G0103 Encounter for Etelvina Manley DO [facility] 020 Cancer Screening screening for Laboratory malignant neoplasm of prostate Lab-Auto 69658 Malignant Etelvina Manley DO [facility] 10/09/2019 Urinalysis neoplasm of Laboratory prostate, Essential (primary) hypertension, Vitamin D deficiency, unspecified Lab-Triiodothyroni 90679 Malignant Etelvina Manley DO [facility] [place] 09/23 ne (t-3) Free neoplasm of Laboratory prostate, Essential (primary) hypertension, Vitamin D deficiency, unspecified Lab-Free T4 75739 Essential Etelvina Manley DO [facility] [place] 10/09/2019 (primary) Laboratory hypertension, Malignant neoplasm of prostate, Vitamin D deficiency, unspecified Lesion 46041 Actinic keratosis Philippe Lowe MD [facility] 12/09/2018 Destruction, [facility] Lesion [place] Lesion 40741 Actinic keratosis Philippe Lowe MD [facility] 12/09/2018 Destruction, Clinic 2nd-14th [place] Lab-Hepatic 51357 Malignant Etelvina Manley DO [facility] 06/10/2018 Function Panel neoplasm of Laboratory (Waiver of prostate Liability Statement on File) Venipuncture 27367 Malignant Etelvina Manley DO [facility] 06/10/2018 (Waiver of neoplasm of Laboratory Liability prostate Statement on File) Surgical History Last Updated History of appendectomy 09/12/2013 History of kidney surgery 09/12/2013 History of prostatectomy 09/12/2013 Medical History Includes: Medical History in patient's chart Description Last Updated History of cancer Right Kidney 09/12/2013 History of prostate cancer 09/12/2013 Family History Includes: Family History in patient's chart Description Last Updated Fraternal history of brother is alive was 4.0 10/17/19 20 3.0 children 10/17/2019 Children 10/17/2019 Paternal history of father 11/19/2014 Maternal history of mother 11/19/2014 Family history of breast cancer 09/12/2013 Family history of brother is alive 09/12/2013 Family history of children 3 09/12/2013 Family history of father 09/12/2013 Family history of mother 09/12/2013 Family history of prostate cancer 09/12/2013 Review of Systems Review of Systems not supported for this document typeNo Review of Systems Recorded Mental Status Mental Status not supported for this document typeNo Mental Status Recorded Functional Status Functional Status not supported for this document typeNo Functional Status Recorded Physical Exam Physical Exam not supported for this document typeNo Physical Exam Recorded Immunizations Includes: Immunizations in patient's chart Vaccine Dose # Date Site Reaction(s) Status Source Influenza, 1 07/30/2012 Left Arm Complete Patient Fluzone HD (Reported) Triv PCV 2 12/05/2008 Complete Patient (Pneumovax (Reported) 23) PCV 2 07/17/2009 Complete Patient (Pneumovax (Reported) 23) PCV 1 11/18/2016 Left Arm Complete [facility] (Pneumovax (Administered) [facility] 23) PCV 13 1 11/18/2015 Left Arm Complete [facility] (Prevnar) (Administered) [facility] Td 1 12/05/2008 Complete Patient (Reported) Tdap 1 11/18/2016 Right Arm Complete [facility] (Administered) [facility] Allergies Includes: Active, inactive, and resolved AllergiesNo Known Allergies Encounters Includes: Encounters from 05/21/2018 through 05/21/2021 Encounter Provider Location Date Check-In Check-Out Diagnosis Time Time [Patient Etelvina Manley 11/01/2019 11/01/2019 Encounter] DO 020 1:23PM 11:59PM Colonoscopy Mario Ellison Surgery 8:57AM 8:57AM [facility] 020 [Patient Etelvina Manley 10/27/2019 10/27/2019 Encounter] DO 020 12:37PM 11:59PM Ultrasound IMG Imaging [facility] 2:50PM 3:24PM Duplex Scan 020 Extracranial Carotid Nurse Visit- BP Mario Asencio IMG 9:09AM 9:29AM [facility] 020 injection, [place] dressing change [Patient Etelvina Manley 11/26/2017 10/17/2019 Encounter] DO 020 2:59PM 11:59PM [Patient Etelvina Manley 11/26/2017 11:59PM Encounter] DO 020 11:41AM Subsequent Etelvina [place] [facility] 11/26/2017 11:25AM Wellness Visit DO 020 10:00AM - Medicare [Patient Etelvina [place] 11/26/2017 12/09/2018 Encounter] DO Laboratory 020 12:00AM 11:59PM [Patient Etelvina Manley 11/26/2017 12/09/2018 Encounter] DO 020 2:01PM 11:59PM Office Visit Philippe MARIEG [facility] 11/26/2017 9:43AM Mynor Shields 019 9:20AM Insurance Includes: Active Insurance Policies Plan Name Member ID Group # Subscriber Relationship Effective Da lino 1 - Medicare Part [id number] Duong Myers Self B-Primary 2 - AAR Medicare [id number] Duong Myers Self - Supplement - Priv Unknown
--- OUTSIDE RECORDS SUMMARY | 2021-05-21 14:51 | XMS_ITS | Clinical Summary ---
:1935 Author Organization [facility] Address [address] [facility] [address] [place] [address] Phone Care Team Providers Name Role Phone Miesha DO Primary Care Provider [phone] Luis M CHOPRA Unavailable [phone] Brenda Lowe MD Unavailable [phone] Reason for Visit and Chief Complaint Colonoscopy [facility] Problems Includes: Problems addressed during this encounter and other active Problems All Visits Onset Date - Resolved [...] PA-C Active Note: Stable Plan of Treatment No Plan of Treatment Recorded Assessments Includes: Assessments from this encounterNo Assessments Recorded Medical Equipment - Implanted Devices Includes: Current DevicesNo Medical Equipment Recorded Medications Includes: Medications discussed during this encounter and other current Medications Current Medications (continue as prescribed) Losartan Potassium 50 MG Oral Tablet 10/07/2020 Provider: Teo Whiteside DO Diagnosis: Take one tablet daily Suprep Bowel Prep Kit 17.5-3.13-1.6 GM/177ML Oral 10/27/2019 Provider: Mario Asencio MD Solution Diagnosis: as directed by the office Vitamin E 100 UNIT Oral Capsule 10/27/2019 Provider: Diagnosis: Medications Administered Includes: Administered Medications from this encounterNo Administered Medications Recorded Results Includes: Results discussed during this encounterNo Results Recorded For Specified Dates Social History No Social History Recorded - Smoking Status Unknown Procedures and Surgical History Includes: Procedures from this encounter Procedures Code Diagnosis Performing Service Location Service Date Provider Colonoscopy 18964 Benign neoplasm Mario Ellison 06/2020 W/rem[facility] Polyps colon, 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 w/o bleeding, Other hemorrhoids Medical History Includes: Medical History addressed during this encounterNo Medical History Recorded Family History Includes: Family History addressed during this encounterNo Family History Recorded Review of Systems Includes: Review of Systems from this encounterNo Review of Systems Recorded Mental Status Includes: Mental Status from this encounterNo Mental Status Recorded Functional Status Includes: Functional Status from this encounterNo Functional Status Recorded Physical Exam Includes: Physical Exam from this encounterNo Physical Exam Recorded Allergies Includes: Active AllergiesNo Known Allergies Encounters Encounter Provider Location Date Check-In Check-Out Diagnosis Time Time Colonoscopy Mario Ellison 11/01/19 8:57AM 8:57AM [facility] 20 Insurance Includes: Active Insurance Policies Plan Name Member ID Group # Subscriber Relationship Effective Da lino 1 - Medicare Part [id number] Eric Mead Self B-Primary 2 - [facility] Medicare [id number] Eric Vergara - Supplement - Priv Unknown
--- OUTSIDE RECORDS SUMMARY | 2021-05-21 14:51 | XMS_ITS | Clinical Summary ---
:1935 Author Organization [facility] Address [address] [facility] [address] [place] [address] Phone Care Team Providers Name Role Phone Rabins DO Primary Care Provider +1 SEE THE VISIT Luis M CHOPRA Unavailable +1 SEE THE VISIT Brenda Lowe MD Unavailable +1 SEE THE VISIT Reason for Visit and Chief Complaint [Patient Encounter] Problems Includes: Problems addressed during this encounter [...] PA-C Active Note: Stable Plan of Treatment Pending Tests Order Diagnosis Results Due Ordering Provi santiago Radiology - US Carotid Duplex Occlusion and 10/25/20 Sy Rabins DO Ultrasound stenosis of bilateral carotid arteries Assessments Includes: Assessments from this encounterNo Assessments Recorded Medical Equipment - Implanted Devices Includes: Current DevicesNo Medical Equipment Recorded Medications Includes: Medications discussed during this encounter and other current Medications Current Medications (continue as prescribed) Losartan Potassium 50 MG Oral Tablet 10/07/2020 Provider: Teo Whiteside DO Diagnosis: Take one tablet daily Suprep Bowel Prep Kit 17.5-3.13-1.6 GM/177ML Oral 10/27/2019 Provider: Mario Bedoya Diagnosis: as directed by the office KP Vitamin E 100 UNIT Oral Capsule 10/27/2019 Provider: Diagnosis: Medications Administered Includes: Administered Medications from this encounterNo Administered Medications Recorded Results Includes: Results discussed during this encounterNo Results Recorded For Specified Dates Social History No Social History Recorded - Smoking Status Unknown Medical History Includes: Medical History addressed during [...] Allergies Encounters Encounter Provider Location Date Check-In Time Check-Out Time D iagnosis [Patient Teo Whiteside DO 10/30/2019 12:37PM 11:59PM Encounter] Insurance Includes: Active Insurance Policies Plan Name Member ID Group # Subscriber Relationship Effective Da lino 1 - Medicare Part [id number] Eric Mead Self B-Primary 2 - [facility] Medicare [id number] Eric Vergara - Supplement - Priv Unknown
--- OUTSIDE RECORDS SUMMARY | 2021-05-21 14:51 | XMS_ITS | Clinical Summary ---
:1935 Author Organization [facility] Address [address] [address] Phone Care Team Providers Name Role Phone [...] during this encounter and other current Medications New / Renewed during this visit Sy Gustavo s DO on 01/11/2020 Losartan Potassium 50 MG Oral Tablet Provider: Teo Whiteside 90 day supply: 90 tablet, 0 refills Diagnosis: Take one tablet daily [facility] [facility] [id number] - Current Medications (continue as prescribed) Losartan Potassium [...] Time D iagnosis [Patient Teo Whiteside DO 01/11/2020 1:23PM 11:59PM Encounter] Insurance Includes: Active Insurance Policies Plan Name Member ID Group # Subscriber Relationship Effective Da lino 1 - Medicare Part [id number] Eric Mead Self B-Primary 2 - [facility] Medicare [id number] Eric Mead Self - Supplement - Priv Unknown
--- OUTSIDE RECORDS SUMMARY | 2021-05-21 14:51 | XMS_ITS | Clinical Summary ---
:1935 Author Organization [facility] Address [address] [facility] [address] [place] [address] Phone Care Team Providers Name Role Phone Miesha DO Primary Care Provider [phone] Luis M CHOPRA Unavailable [phone] Brenda Lowe MD Unavailable [phone] Reason for Visit and Chief Complaint Office Visit Problems Includes: Problems addressed during this encounter [...] Bedoya Diagnosis: as directed by the office Vitamin [...] Recorded Allergies Includes: Active AllergiesNo Known Allergies Insurance Includes: Active Insurance Policies Plan Name Member ID Group # Subscriber Relationship Effective Da lino 1 - Medicare Part [id number] Eric Mead Self B-Primary 2 - [employer] Medicare [id number] Eric Slaughter Mead Self - Supplement - Priv Unknown
--- OUTSIDE RECORDS SUMMARY | 2021-05-21 14:51 | XMS_ITS | Clinical Summary ---
:1935 Author Organization [facility] Address [address] [facility] [address] [place] [address] Phone Care Team Providers Name Role Phone Rabrui DO Primary Care Provider [phone] Luis M CHOPRA Unavailable [phone] Brenda Lowe MD Unavailable [phone] Reason for Visit and Chief Complaint Ultrasound Duplex Scan Extracranial Carotid Problems Includes: Problems addressed during this encounter [...] during this encounter and other current Medications Discontinued / Stopped on this date on 11/26/2017 Aspirin 81MG Oral Tablet Delayed Release Provide r: Diagnosis: Current Medications (continue as prescribed) Losartan Potassium [...] this encounter Procedures Code Diagnosis Performing Service Service [place] [address] Occlusion and Issam D Souss[facility] 0 10/27/2019 Extracranial Artery stenosis of MD MCKINLEY (Waiver of bilateral Liability Statement carotid arteries on File) Medical History Includes: Medical History addressed during [...] Date Check-In Time Check-Out Time D iagnosis Ultrasound Duplex [facility] Imaging 2:50PM 3:24PM Scan Extracranial BRR 0 Carotid Insurance Includes: Active Insurance Policies Plan Name Member ID Group # Subscriber Relationship Effective Da lino 1 - Medicare Part [id number] Eric Mead Self B-Primary 2 - [facility] Medicare [id number] Eric Mead Self - Supplement - Priv Unknown
== END 2021-05-22 23:59 | disposition home or self-care (01) ==
LOC: CR 09:00
PROVIDERS: PCP Family Medicine; Visit Provider Family Medicine
DX: Z51.89 Encounter for other specified aftercare (principal); I25.2 Old myocardial infarction; Z95.5 Presence of coronary angioplasty implant and graft
CPT/HCPCS: S9472

== ENCOUNTER 2021-06-20 09:00 | Outpatient (RCR) | payer MEDICARE, SELFPAY | END 2021-06-22 23:59 | disposition home or self-care (01) | LOC: CR 09:00 | PROVIDERS: PCP Family Medicine; Visit Provider Family Medicine | DX: Z51.89 Encounter for other specified aftercare (principal); I25.2 Old myocardial infarction; Z95.5 Presence of coronary angioplasty implant and graft | CPT/HCPCS: S9472 ==

== ENCOUNTER 2021-07-21 09:00 | Outpatient (RCR) | payer MEDICARE, SELFPAY | END 2021-07-22 23:59 | disposition home or self-care (01) | LOC: CR 09:00 | PROVIDERS: PCP Family Medicine; Visit Provider Family Medicine | DX: Z51.89 Encounter for other specified aftercare (principal); I25.2 Old myocardial infarction; Z95.5 Presence of coronary angioplasty implant and graft | CPT/HCPCS: S9472 ==

== ENCOUNTER 2021-08-13 01:52 | Outpatient (CLI) | payer MEDICARE, SELFPAY ==
--- NOTE | 2021-08-13 13:44 | DI.US_ITS ---
APPROVED REPORT EXAM: Comprehensive 2D, Doppler, and color-flow Echocardiogram Patient Location: Out-Patient Supervisor Spinning: Hanh Webb RDCS (AE) Indications: CO, STEMI Other Information Study Quality: Adequate Conclusion Normal left ventricular wall thickness and chamber size. Estimated ejection fraction is 55 to 60%. There are no segmental wall motion abnormalities Normal right ventricular size and systolic function Both atria are normal in size The aortic valve is trileaflet and mildly sclerotic with trace to mild regurgitation. No aortic sten osis Normal mitral leaflets. Mild mitral annular calcification. Trace mitral regurgitation Normal tricuspid valve with trace to mild regurgitation. Normal estimated right ventricular pressure 25 mmHg Wall motion Left Ventricle The left ventricle is normal size. The left ventricular systolic function is normal. The left ventric ular ejection fraction is within the normal range. There is normal left ventricular wall thickness. T here is normal LV segmental wall motion. There is no ventricular septal defect visualized. LVEF is 55 -60%. Right Ventricle The right ventricle is normal size. The right ventricular systolic function is normal. The RVSP is 25 .1 mmHg. Atria The left atrium size is normal. The right atrium size is normal. The interatrial septum is intact wit h no evidence for an atrial septal defect. Aortic Valve The Aortic valve is sclerotic. Aortic valve is trileaflet. There is no aortic valvular stenosis. Trac e to mild aortic regurgitation. Mitral Valve The mitral valve is normal in structure. Mild mitral annular calcification. No evidence of mitral william ve stenosis. Trace mitral regurgitation. Tricuspid Valve The tricuspid valve is normal in structure. There is no tricuspid valve stenosis. Trace to mild tricu spid regurgitation. Pulmonic Valve Pulmonic valve is not well visualized. There is no pulmonic valvular stenosis. There is no pulmonic v alvular regurgitation. Great Vessels The aortic root is normal in size. Ascending aorta is not well visualized. IVC is normal in size and collapses >50% with inspiration. Pericardium There is no pericardial effusion. 2D Dimensions IVSD d PLAX 0.91 cm M: 0.6-1.2 LV Vol A2C d MOD 118.4 mL LVPW d PLAX 0.96 cm M: 0.6 - 1.2 LV Vol A4C d MOD 112.1 mL LVID d PLAX 5.15 cm M: 4.2 - 5.8 LA vol/ BSA A2C s A-L 23.9 mL/m2 LVDs 3.55 cm M: 2.5 - 4.0 LA vol/ BSA A4C s A-L 20.4 mL/m2 Ao Root d 3.03 cm M: 3.1 - 3.7 LA Vol/ BSA Biplane s A-L 23.2 mL/m2 RA Area A4C 11.32 cm2 LA Area A4C s MOD 15.44 cm2 RA Vol/ BSA A4C s A-L 13.6 mL/m2 LA Area A2C s MOD 15.88 cm2 LV EF Teichholz 58.1 % LV EF A4C MOD 56.8 % LVEF (Nair's) 57.69 % M: 52 - 72 LV EF A2C MOD 58.7 % LV Volume 88.28 mL M: 62 - 150 LV EF Biplane MOD 57.7 % LV Volume Index 46.46 mL/m2 M: 34 - 74 SV 66.79 mL LV Vol Biplane MOD 115.8 mL SV Index 35.09 mL/m2 FS 30.80 % M-Mode TAPSE 2.28 cm (M/F) >1.7 LV Diastology MV E' medial 0.082 (>0.07 m/s) E/A Ratio 0.6 LV E/e MED 6.10 (<14) MV E Vmax 0.50 (0.4-1.3 m/s) MV E' lateral 0.100 (>0.1 m/s) MV A Vmax 0.85 (0.4-1.3 m/s) LV E/e LAT 5.00 (<14) MV E/A Ratio 0.58 MV E/E' medial 6.12 MV E/E' lateral 5.00 Aortic Valve LVOT Area 3.44 cm2 AoV Area Vmax 2.45 cm2 LVOT Vmax 1.08 m/s AoV Area/ BSA (Vmax) 1.29 cm2/m2 LVOT Mean Joss. 0.66 m/s LIEN Mean Joss. 2.08 cm2 LVOT Peak Grad 4.7 mmHg LIEN Mean Joss. Index 1.09 cm2/m2 LVOT Mean Grad 2.1 mmHg AR DT 2836 msec LVOT VTI 0.225 m AR PHT 823 msec LVOT Diam s 2.05 cm AoV Vmax 1.52 m/s Velocity Ratio 0.71 AoV Mean Joss. 1.08 m/s AoV Peak Grad 9.2 mmHg LVOT SV 77.18 mL AoV Mean Grad 5.2 mmHg AoV VTI 0.318 m AoV Area VTI 2.43 cm2 AoV Area/ BSA (VTI) 1.28 cm/m2 Mitral Valve MV DT 399 (160-240 msec) MV PHT 116 msec MV Area PHT 1.90 cm2 MV VTI 0.300 m MV Area VTI 2.57 (4.0-6.0 cm2) Pulmonary Valve PV Vmax 1.00 (0.5-1.5 m/s) RVOT Peak Gr. 2.95 mmHg PV Peak Grad 4.0 mmHg RVOT Mean Gr. 1.50 mmHg PV Mean Grad 2.5 mmHg RVOT VTI 0.178 m PV VTI 0.207 m RVOT Vmax 0.86 m/s Tricuspid Valve TR Peak Grad 22.1 mmHg TR Vmax 2.35 m/s RA Pressure 3.00 mmHg RVSP (TR) 25.1 mmHg
== END 2021-08-13 02:12 ==
PROVIDERS: PCP Family Medicine; Visit Provider Internal Medicine Cardiovascular Disease
DX: I21.3 ST elevation (STEMI) myocardial infarction of unspecified site (principal); I08.2 Rheumatic disorders of both aortic and tricuspid valves
CPT/HCPCS: 93306

== ENCOUNTER 2021-08-18 09:00 | Outpatient (RCR) | payer MEDICARE, SELFPAY | END 2021-08-22 23:59 | disposition home or self-care (01) | LOC: CR 09:00 | PROVIDERS: PCP Family Medicine; Visit Provider Family Medicine | DX: Z51.89 Encounter for other specified aftercare (principal); I25.2 Old myocardial infarction; Z95.5 Presence of coronary angioplasty implant and graft | CPT/HCPCS: S9472 ==

== ENCOUNTER 2021-08-25 14:40 | Outpatient (RCR) | payer MEDICARE, SELFPAY | END 2021-09-22 23:59 | disposition home or self-care (01) | LOC: CR 14:40 | PROVIDERS: PCP Family Medicine; Visit Provider Family Medicine | DX: Z51.89 Encounter for other specified aftercare (principal); I25.2 Old myocardial infarction; Z95.5 Presence of coronary angioplasty implant and graft | CPT/HCPCS: S9472 ==

== ENCOUNTER → 2021-08-26 08:26 | Outpatient (BNVA) | payer MEDICARE, SELFPAY | PROVIDERS: PCP Family Medicine; Referring Provider Family Medicine; Visit Provider Nurse Practitioner Gerontology | DX: C61 Malignant neoplasm of prostate (principal); N20.0 Calculus of kidney | CPT/HCPCS: 36415; 99214 ==

== ENCOUNTER 2021-08-26 09:31 | Outpatient (REF) | payer MEDICARE, SELFPAY ==
[2021-08-26 19:15] LABS: PSA, Diagnostic 0.7 ng/mL (0.0-6.5)
== END 2021-08-26 09:32 | disposition home or self-care (01) ==
LOC: LBN 09:31
PROVIDERS: PCP Family Medicine; Visit Provider Nurse Practitioner Gerontology
DX: C61 Malignant neoplasm of prostate (principal)
CPT/HCPCS: 84153

== ENCOUNTER 2021-08-29 09:00 | Outpatient (RCR) | payer MEDICARE, SELFPAY | END 2021-09-18 16:41 | LOC: CR 09:00 | PROVIDERS: PCP Family Medicine; Visit Provider Family Medicine | DX: Z51.89 Encounter for other specified aftercare (principal); I25.2 Old myocardial infarction; Z95.5 Presence of coronary angioplasty implant and graft | CPT/HCPCS: S9472 ==

== ENCOUNTER 2021-09-05 08:24 | Outpatient (CLI) | payer MEDICARE, SELFPAY ==
--- NOTE | 2021-09-05 08:15 | RT.EKG_ITS ---
APPROVED REPORT Exam: Resting ECG Reason for Exam: CO Patient Location: O HR:65 bpm ECG Measurements Heart Rate 65 AXIS AK 149 P 69 QRSd 87 QRS -15 QT 375 T 82 QTc 390 Conclusion Sinus rhythm...normal P axis, V-rate 50- 99 Borderline left axis deviation...QRS axis (-15,-29) Nonspecific T abnrm, anterolateral leads...T <-0.10mV, I aVL V2-V6
== END 2021-09-05 08:25 | disposition home or self-care (01) ==
LOC: DI.CARD 08:24
PROVIDERS: PCP Family Medicine; Visit Provider Internal Medicine Cardiovascular Disease
DX: I25.2 Old myocardial infarction
CPT/HCPCS: 93010

== ENCOUNTER → 2021-09-05 13:14 | Outpatient (BNVA) | payer MEDICARE, SELFPAY | PROVIDERS: PCP Family Medicine; Referring Provider Family Medicine; Visit Provider Internal Medicine Cardiovascular Disease | DX: I25.10 Atherosclerotic heart disease of native coronary artery without angina pectoris (principal); I25.2 Old myocardial infarction; I10 Essential (primary) hypertension | CPT/HCPCS: 93005; 99203; 99214 ==

== ENCOUNTER 2022-02-20 02:43 | Outpatient (CLI) | payer MEDICARE, SELFPAY | END 2022-02-20 02:44 | disposition home or self-care (01) | LOC: LBO 02:44 | PROVIDERS: PCP Family Medicine; Visit Provider Nurse Practitioner Gerontology ==

== ENCOUNTER → 2022-03-02 12:42 | Outpatient (BNVA) | payer MEDICARE, SELFPAY | PROVIDERS: PCP Family Medicine; Referring Provider Family Medicine; Visit Provider Internal Medicine Cardiovascular Disease | DX: I25.10 Atherosclerotic heart disease of native coronary artery without angina pectoris (principal); I10 Essential (primary) hypertension | CPT/HCPCS: 99214; 99213 ==

== ENCOUNTER → 2022-05-06 01:04 | Outpatient (CLI) | payer MEDICARE, SELFPAY ==
--- NOTE | 2022-05-06 07:49 | DI.US_ITS ---
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 COMPARISON: US US ECHOCARDIOGRAM from 08/13/2021 FINDINGS: RIGHT KIDNEY: Surgically absent. LEFT KIDNEY: Measures 14 cm in length. There few small benign-appearing cysts in the left kidney, the largest juarez suring 2.3 x 2.2 x 1.8 cm. This is slightly below midpole level. No solid renal masses noted. Ther e is a small 7 millimeter echogenic focus in the superior pole region which may be a nonobstructive c alculus. There is no hydronephrosis. No perinephric fluid. Cortical thickness is normal. URINARY BLADDER: Not studied. Patient was apparently not able to prep IMPRESSION: 1. Small benign cysts in the left kidney. Nonobstructive 7 millimeter calculus in the upper pole of the ipsilateral left kidney. No hydronephrosis. 2. The opposite-right kidney is surgically absent. DATA REPOSITORY:
== END ==
PROVIDERS: PCP Family Medicine; Visit Provider Nurse Practitioner Gerontology
DX: N20.0 Calculus of kidney (principal); C64.1 Malignant neoplasm of right kidney, except renal pelvis; Z90.5 Acquired absence of kidney; N28.1 Cyst of kidney, acquired
CPT/HCPCS: 36415; 76770; 84153

== ENCOUNTER 2022-05-06 01:52 | Outpatient (CLI) | payer MEDICARE, SELFPAY ==
[2022-05-06 18:42] LABS: PSA, Diagnostic 0.8 ng/mL (<=6.5)
== END 2022-05-06 01:53 | disposition home or self-care (01) ==
LOC: LBO 01:52
PROVIDERS: PCP Family Medicine; Visit Provider Nurse Practitioner Gerontology
DX: C61 Malignant neoplasm of prostate (principal)
CPT/HCPCS: 36415; 84153

== ENCOUNTER → 2022-05-12 13:53 | Outpatient (BNVA) | payer MEDICARE, SELFPAY | PROVIDERS: PCP Family Medicine; Referring Provider Family Medicine; Visit Provider Nurse Practitioner Gerontology | DX: Z85.46 Personal history of malignant neoplasm of prostate (principal); Z85.528 Personal history of other malignant neoplasm of kidney; N20.0 Calculus of kidney | CPT/HCPCS: 99214 ==

== ENCOUNTER 2022-06-08 15:26 | Outpatient (REF) | payer MEDICARE, SELFPAY ==
[2022-06-08 19:10] LABS: HCT 45.7 % (40.0-50.0); HGB 15.7 g/dL (13.5-17.5); MCH 31.8 pg (27.0-33.0); MCHC 34.4 % (32.0-36.0); MCV 93 fL (80-95); MPV 10.6 fL (8.0-11.0); Platelet Count 191 10^3/uL (130-400); RBC 4.93 10^6/uL (4.36-5.78); RDW 11.9 % (11.8-14.1); RDW-SD 41.4 fL; WBC 8.95 10^3/uL (4.4-10.8)
[2022-06-08 19:21] LABS: Anion Gap 5.8 mmol/L (3-11); BUN 25 mg/dL (7-18); CO2 29.2 mmol/L (21.0-32.0); CREATININE 1.1 mg/dL (0.70-1.30); Calcium 9.2 mg/dL (8.5-10.1); Chloride 104 mmol/L (98-107); Estimated GFR 65.79 (mL/min/1.73m2); Glucose 117 mg/dL (74-106); Potassium 4.5 mmol/L (3.5-5.1); Sodium 139 mmol/L (136-145)
== END 2022-06-08 15:27 | disposition home or self-care (01) ==
LOC: NCHCN 15:26
PROVIDERS: PCP Family Medicine; Visit Provider Family Medicine
DX: I25.10 Atherosclerotic heart disease of native coronary artery without angina pectoris (principal); I10 Essential (primary) hypertension; C61 Malignant neoplasm of prostate
CPT/HCPCS: 80048; 85027

== ENCOUNTER → 2022-08-11 09:17 | Outpatient (BNVA) | payer MEDICARE, SELFPAY | PROVIDERS: PCP Family Medicine; Visit Provider Internal Medicine Cardiovascular Disease | DX: I25.10 Atherosclerotic heart disease of native coronary artery without angina pectoris (principal); I10 Essential (primary) hypertension; Z95.5 Presence of coronary angioplasty implant and graft; I25.2 Old myocardial infarction | CPT/HCPCS: 99214 ==

== ENCOUNTER 2023-01-13 05:18 | Outpatient (CLI) | payer MEDICARE, SELFPAY ==
[2023-01-13 12:10] LABS: ALT 23 U/L (16-63); AST 24 U/L (15-37); Alkaline Phosphatase 90 U/L (46-116); Anion Gap 7.3 mmol/L (3-11); BUN 22 mg/dL (7-18); Bilirubin, Total 0.8 mg/dL (0.2-1.0); CO2 30.7 mmol/L (21.0-32.0); CREATININE 1.2 mg/dL (0.70-1.30); Calcium 9.6 mg/dL (8.5-10.1); Chloride 105 mmol/L (98-107); Estimated GFR 58.89 (mL/min/1.73m2); Glucose 91 mg/dL (74-106); Potassium 4.8 mmol/L (3.5-5.1); Sodium 143 mmol/L (136-145); Total Protein 7.1 g/dL (6.4-8.2)
[2023-01-13 21:51] LABS: PSA, Diagnostic 1.2 ng/mL (<=6.5)
== END 2023-01-13 05:19 | disposition home or self-care (01) ==
LOC: LBO 05:18
PROVIDERS: PCP Family Medicine; Visit Provider Nurse Practitioner Gerontology
DX: C61 Malignant neoplasm of prostate (principal); C64.9 Malignant neoplasm of unspecified kidney, except renal pelvis
CPT/HCPCS: 36415; 80053; 84153

== ENCOUNTER → 2023-01-21 10:05 | Outpatient (BNVA) | payer MEDICARE, SELFPAY | PROVIDERS: PCP Family Medicine; Visit Provider Nurse Practitioner Gerontology | DX: Z85.46 Personal history of malignant neoplasm of prostate (principal); C64.9 Malignant neoplasm of unspecified kidney, except renal pelvis; N20.0 Calculus of kidney | CPT/HCPCS: 99214 ==

== ENCOUNTER → 2023-05-05 01:25 | Outpatient (CLI) | payer MEDICARE, SELFPAY ==
--- NOTE | 2023-05-05 07:15 | DI.US_ITS ---
Exam(s) US RENAL EXAM: US RENAL CLINICAL HISTORY: monitoring single kidney,calculi,prostate ca,kidney stone,renal cell ca,n20. TECHNIQUE: Gastelum scale, color and spectral Doppler were used. COMPARISON: US US RENAL from 05/06/2022 FINDINGS: Renal size in cm: Right: Status post right nephrectomy left: 14.0 Echogenicity: Normal Hydronephrosis: No Cyst or mass: Stable appearance of 2 cysts in the mid to lower left kidney. Stable appearance of 7 m illimeter stone upper pole left kidney. Nephrolithiasis: No Bladder:Normal. Left ureteral jet visualized. Prevoid vol: 139 Postvoid vol:0 Prostate surgically absent. IMPRESSION: Stable appearance renal cysts and upper pole calculus. No hydronephrosis. DATA REPOSITORY:
== END ==
PROVIDERS: PCP Family Medicine; Visit Provider Nurse Practitioner Gerontology
DX: C61 Malignant neoplasm of prostate (principal); C64.9 Malignant neoplasm of unspecified kidney, except renal pelvis; N20.0 Calculus of kidney
CPT/HCPCS: 36415; 76770; 84153; 84520; 82565

== ENCOUNTER 2023-05-05 03:27 | Outpatient (CLI) | payer MEDICARE, SELFPAY ==
[2023-05-05 14:54] LABS: BUN 18 mg/dL (7-18); CREATININE 1.2 mg/dL (0.70-1.30); Estimated GFR 58.89 (mL/min/1.73m2)
[2023-05-06 17:08] LABS: PSA, Ultrasensitive 1.7 ng/mL (<= 7.2)
== END 2023-05-05 03:28 | disposition home or self-care (01) ==
LOC: LBO 03:27
PROVIDERS: PCP Family Medicine; Visit Provider Nurse Practitioner Gerontology
DX: C61 Malignant neoplasm of prostate (principal); N20.0 Calculus of kidney; Z85.528 Personal history of other malignant neoplasm of kidney; I10 Essential (primary) hypertension
CPT/HCPCS: 36415; 84153; 84520; 82565

== ENCOUNTER → 2023-05-12 09:01 | Outpatient (BNVA) | payer MEDICARE, SELFPAY | PROVIDERS: PCP Family Medicine; Visit Provider Nurse Practitioner Gerontology | DX: R97.20 Elevated prostate specific antigen [PSA] (principal); Z85.528 Personal history of other malignant neoplasm of kidney; Z85.46 Personal history of malignant neoplasm of prostate; Z90.5 Acquired absence of kidney; I10 Essential (primary) hypertension; N20.0 Calculus of kidney | CPT/HCPCS: 99214 ==

== ENCOUNTER → 2023-08-20 09:29 | Outpatient (BNVA) | payer MEDICARE, SELFPAY | PROVIDERS: PCP Family Medicine; Visit Provider Internal Medicine Interventional Cardiology | DX: I25.10 Atherosclerotic heart disease of native coronary artery without angina pectoris (principal) | CPT/HCPCS: 99213 ==

== ENCOUNTER 2024-02-08 16:01 | Outpatient (CLI) | payer MEDICARE, SELFPAY ==
[2024-02-08 11:56] LABS: BUN 21 mg/dL (7-18); CREATININE 1.1 mg/dL (0.70-1.30); Estimated GFR 64.97 (mL/min/1.73m2)
[2024-02-09 17:39] LABS: PSA, Ultrasensitive 2.1 ng/mL (<= 7.2)
== END 2024-02-08 16:02 | disposition home or self-care (01) ==
LOC: LBO 16:04
PROVIDERS: PCP Family Medicine; Visit Provider Nurse Practitioner Gerontology
DX: R97.20 Elevated prostate specific antigen [PSA] (principal); C61 Malignant neoplasm of prostate; N20.0 Calculus of kidney
CPT/HCPCS: 36415; 84153; 84520; 82565

== ENCOUNTER → 2024-02-16 15:06 | Outpatient (BNVA) | payer MEDICARE, SELFPAY | PROVIDERS: PCP Family Medicine; Referring Provider Family Medicine; Visit Provider Nurse Practitioner Gerontology | DX: C61 Malignant neoplasm of prostate (principal); C64.9 Malignant neoplasm of unspecified kidney, except renal pelvis; N20.0 Calculus of kidney | CPT/HCPCS: 99214 ==

== ENCOUNTER 2024-03-22 11:00 | Outpatient (RCR) | payer MEDICARE, SELFPAY | END 2024-03-22 23:59 | disposition home or self-care (01) | LOC: CR 11:00 | PROVIDERS: PCP Family Medicine; Visit Provider Internal Medicine Cardiovascular Disease | DX: I20.9 Angina pectoris, unspecified (principal); I21.3 ST elevation (STEMI) myocardial infarction of unspecified site; Z98.61 Coronary angioplasty status | CPT/HCPCS: S9472 ==

== ENCOUNTER 2024-04-21 10:30 | Outpatient (RCR) | payer MEDICARE, SELFPAY | END 2024-04-22 23:59 | disposition home or self-care (01) | LOC: CR 10:30 | PROVIDERS: PCP Family Medicine; Visit Provider Internal Medicine Cardiovascular Disease | DX: I20.0 Unstable angina (principal); Z95.5 Presence of coronary angioplasty implant and graft; Z51.89 Encounter for other specified aftercare | CPT/HCPCS: S9472 ==

== ENCOUNTER 2024-05-10 02:17 | Outpatient (CLI) | payer MEDICARE, SELFPAY ==
--- NOTE | 2024-05-10 08:53 | DI.US_ITS ---
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 TECHNIQUE: Gastelum scale, color and spectral Doppler were used. COMPARISON: US US RENAL from 05/05/2023 FINDINGS: Right kidney: Status post right nephrectomy. Left kidney: Compensatory hypertrophy, measuring 14.0 x 5.1 x 7.3cm Echogenicity: Normal Hydronephrosis: No Cyst or mass: No suspicious mass. Small renal cysts again noted. Nephrolithiasis: Stone near the upper pole of the left kidney is measured at 6 millimeters on the cur rent exam. Bladder:Normal. Prevoid vol:18 cc Postvoid vol:Not performed cc Prostate surgically absent. IMPRESSION: 6 millimeter stone upper pole left kidney. 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 DATA REPOSITORY:
== END 2024-05-10 02:37 ==
LOC: DI 02:17
PROVIDERS: PCP Family Medicine; Visit Provider Nurse Practitioner Gerontology
DX: N20.0 Calculus of kidney
CPT/HCPCS: 76770

== ENCOUNTER 2024-05-11 11:41 | Outpatient (CLI) | payer MEDICARE, SELFPAY ==
[2024-05-11 09:52] LABS: Anion Gap 7.8 mmol/L (3-11); BUN 15 mg/dL (7-18); CO2 29.2 mmol/L (21.0-32.0); CREATININE 1.1 mg/dL (0.70-1.30); Calcium 9.3 mg/dL (8.5-10.1); Chloride 105 mmol/L (98-107); Estimated GFR 64.97 (mL/min/1.73m2); Glucose 103 mg/dL (74-106); Potassium 3.9 mmol/L (3.5-5.1); Sodium 142 mmol/L (136-145)
== END 2024-05-11 11:42 | disposition home or self-care (01) ==
LOC: LBO 11:41
PROVIDERS: PCP Family Medicine; Visit Provider Physician Assistant Medical
DX: I25.10 Atherosclerotic heart disease of native coronary artery without angina pectoris (principal); I10 Essential (primary) hypertension
CPT/HCPCS: 36415; 80048

== ENCOUNTER 2024-05-22 10:08 | Outpatient (RCR) | payer MEDICARE, SELFPAY | END 2024-05-22 23:59 | disposition home or self-care (01) | LOC: CR 10:08 | PROVIDERS: PCP Family Medicine; Visit Provider Internal Medicine Cardiovascular Disease | DX: Z95.5 Presence of coronary angioplasty implant and graft (principal); Z51.89 Encounter for other specified aftercare | CPT/HCPCS: S9472 ==

== ENCOUNTER 2024-06-14 10:12 | Outpatient (RCR) | payer MEDICARE, SELFPAY | END 2024-06-22 23:59 | disposition home or self-care (01) | LOC: CR 10:12 | PROVIDERS: PCP Family Medicine; Visit Provider Internal Medicine Cardiovascular Disease | DX: I20.0 Unstable angina (principal); Z98.61 Coronary angioplasty status; Z51.89 Encounter for other specified aftercare | CPT/HCPCS: S9472 ==

== ENCOUNTER 2024-07-19 09:47 | Outpatient (RCR) | payer MEDICARE, SELFPAY | END 2024-07-22 23:59 | disposition home or self-care (01) | LOC: CR 09:47 | PROVIDERS: PCP Family Medicine; Visit Provider Internal Medicine Cardiovascular Disease | DX: I20.0 Unstable angina (principal); Z51.89 Encounter for other specified aftercare | CPT/HCPCS: S9472 ==

== ENCOUNTER 2024-07-31 10:00 | Outpatient (RCR) | payer MEDICARE, SELFPAY | END 2024-08-22 23:59 | disposition home or self-care (01) | LOC: CR 10:00 | PROVIDERS: PCP Family Medicine; Visit Provider Internal Medicine Cardiovascular Disease | DX: I20.0 Unstable angina (principal); Z51.89 Encounter for other specified aftercare; Z95.5 Presence of coronary angioplasty implant and graft | CPT/HCPCS: S9472 ==

== ENCOUNTER 2024-08-08 02:53 | Outpatient (CLI) | payer MEDICARE, SELFPAY ==
[2024-08-08 15:18] LABS: BUN 17 mg/dL (7-18); CREATININE 1.2 mg/dL (0.70-1.30); Estimated GFR 58.53 (mL/min/1.73m2)
[2024-08-10 19:27] LABS: PSA, Ultrasensitive 1.7 ng/mL (<= 7.2)
== END 2024-08-08 02:54 | disposition home or self-care (01) ==
PROVIDERS: PCP Family Medicine; Visit Provider Nurse Practitioner Gerontology
DX: C61 Malignant neoplasm of prostate (principal); C64.9 Malignant neoplasm of unspecified kidney, except renal pelvis
CPT/HCPCS: 36415; 84153; 84520; 82565

== ENCOUNTER 2024-08-11 01:36 | Outpatient (CLI) | payer MEDICARE, SELFPAY ==
[2024-08-11 11:07] LABS: Anion Gap 7.4 mmol/L (3-11); BUN 15 mg/dL (7-18); CO2 29.6 mmol/L (21.0-32.0); CREATININE 1.3 mg/dL (0.70-1.30); Calcium 9.3 mg/dL (8.5-10.1); Calculated LDL 44 mg/dL (<100); Chloride 107 mmol/L (98-107); Cholesterol 130 mg/dL (<200); Estimated GFR 53.17 (mL/min/1.73m2); Glucose 104 mg/dL (74-106); HDL Cholesterol 71 mg/dL (40-60); Potassium 4.1 mmol/L (3.5-5.1); Sodium 144 mmol/L (136-145); Triglyceride 75 mg/dL (<150)
== END 2024-08-11 01:37 | disposition home or self-care (01) ==
PROVIDERS: PCP Family Medicine; Visit Provider Physician Assistant Medical
DX: I20.89 Other forms of angina pectoris (principal)
CPT/HCPCS: 36415; 80048; 80061; 83735

== ENCOUNTER → 2024-08-15 11:23 | Outpatient (BNVA) | payer MEDICARE, SELFPAY | PROVIDERS: PCP Family Medicine; Visit Provider Nurse Practitioner Gerontology | DX: C61 Malignant neoplasm of prostate (principal); C64.9 Malignant neoplasm of unspecified kidney, except renal pelvis; N20.0 Calculus of kidney | CPT/HCPCS: 99213 ==

== ENCOUNTER 2024-08-22 11:00 | Outpatient (RCR) | payer SELFPAY ==
[2024-08-03 11:05] VITALS: BP 150/66; PULSE 50
[2024-08-08 11:16] VITALS: BP 148/79; PULSE 58
[2024-08-22 13:27] VITALS: BP 148/76; PULSE 53
== END 2024-08-22 23:59 | disposition home or self-care (01) ==
LOC: CR 11:00
PROVIDERS: PCP Family Medicine; Visit Provider Internal Medicine Cardiovascular Disease
DX: R69 Illness, unspecified (principal)

== ENCOUNTER 2024-09-12 11:07 | Outpatient (RCR) | payer SELFPAY ==
[2024-08-23 00:32] VITALS: BP 148/76; PULSE 53
[2024-08-24 10:56] VITALS: BP 147/64; PULSE 54
[2024-08-29 11:25] VITALS: BP 138/77; PULSE 54
[2024-08-31 11:20] VITALS: BP 151/78; PULSE 55
[2024-09-05 11:02] VITALS: BP 143/76; PULSE 53
[2024-09-07 11:20] VITALS: BP 128/68; PULSE 57
[2024-09-12 11:11] VITALS: BP 146/71; PULSE 52
== END 2024-09-22 23:59 | disposition home or self-care (01) ==
LOC: CR 11:07
PROVIDERS: PCP Family Medicine; Visit Provider Internal Medicine Cardiovascular Disease
DX: R69 Illness, unspecified (principal)

== ENCOUNTER 2025-02-15 11:00 | Outpatient (RCR) | payer SELFPAY ==
[2025-01-25 14:05] VITALS: BP 138/71; PULSE 56
[2025-01-30 14:28] VITALS: BP 154/70; PULSE 54
[2025-02-01 11:25] VITALS: BP 142/70; PULSE 63
[2025-02-06 11:28] VITALS: BP 142/75; PULSE 57
[2025-02-08 12:27] VITALS: BP 157/66; PULSE 55
[2025-02-13 14:44] VITALS: BP 151/78; PULSE 64
[2025-02-15 11:00] VITALS: BP 139/74; PULSE 56
== END 2025-02-19 23:59 | disposition home or self-care (01) ==
LOC: CR 11:00
PROVIDERS: PCP Family Medicine; Visit Provider Internal Medicine Cardiovascular Disease
DX: R69 Illness, unspecified (principal)

== ENCOUNTER 2025-03-22 11:00 | Outpatient (RCR) | payer SELFPAY ==
[2025-02-22 11:22] VITALS: BP 150/66; PULSE 56; O2SAT 96
[2025-02-27 13:41] VITALS: BP 136/73; PULSE 48
[2025-03-01 13:17] VITALS: BP 150/75; PULSE 54
[2025-03-06 11:09] VITALS: BP 151/76; PULSE 53
[2025-03-15 11:01] VITALS: BP 135/71; PULSE 51
[2025-03-20 11:15] VITALS: BP 136/72; PULSE 52
[2025-03-22 11:15] VITALS: BP 162/75; PULSE 49; O2SAT 96
== END 2025-03-22 23:59 | disposition home or self-care (01) ==
LOC: CR 11:00
PROVIDERS: PCP Family Medicine; Visit Provider Internal Medicine Cardiovascular Disease
DX: R69 Illness, unspecified (principal)

== ENCOUNTER 2025-04-03 03:18 | Outpatient (CLI) | payer MEDICARE, SELFPAY | END 2025-04-03 03:19 | disposition home or self-care (01) | LOC: LBO 03:18 | PROVIDERS: PCP Family Medicine; Visit Provider Nurse Practitioner Gerontology | DX: C61 Malignant neoplasm of prostate (principal) | CPT/HCPCS: 36415; 84153 ==

== ENCOUNTER → 2025-04-12 12:39 | Outpatient (BNVA) | payer MEDICARE, SELFPAY | PROVIDERS: PCP Family Medicine; Referring Provider Internal Medicine; Visit Provider Nurse Practitioner Gerontology | DX: C64.9 Malignant neoplasm of unspecified kidney, except renal pelvis (principal); C61 Malignant neoplasm of prostate; N20.0 Calculus of kidney; Z90.5 Acquired absence of kidney; Z80.42 Family history of malignant neoplasm of prostate | CPT/HCPCS: 99214 ==

== ENCOUNTER 2025-04-19 11:00 | Outpatient (RCR) | payer SELFPAY ==
[2025-03-23 00:11] VITALS: BP 162/75; PULSE 49
[2025-03-27 13:55] VITALS: BP 144/70; PULSE 54
[2025-03-29 11:26] VITALS: BP 140/76; PULSE 52; O2SAT 95
[2025-04-03 11:00] VITALS: BP 127/71; PULSE 49
[2025-04-05 11:10] VITALS: BP 150/71; PULSE 52
[2025-04-10 11:19] VITALS: BP 142/75; PULSE 48
[2025-04-12 11:20] VITALS: BP 163/63; PULSE 52
[2025-04-17 11:19] VITALS: BP 130/73; PULSE 54
[2025-04-19 10:55] VITALS: BP 152/74; PULSE 52; O2SAT 95
== END 2025-04-22 23:59 | disposition home or self-care (01) ==
LOC: CR 11:00
PROVIDERS: PCP Family Medicine; Visit Provider Internal Medicine Cardiovascular Disease
DX: R69 Illness, unspecified (principal)

== ENCOUNTER 2025-05-03 13:38 | Inpatient (IN) | payer MEDICARE, SELFPAY ==
[2025-05-03] VITALS (61 sets, daily range): BP systolic 140–219; BP diastolic 65–109; PULSE 58–74; RESP 10–23; TEMP 36.4–36.9; O2SAT 91–100
--- NOTE | 2025-05-03 13:45 | RT.EKG_ITS ---
APPROVED REPORT Exam: Resting ECG Reason for Exam: trauma Patient Location: E HR:57 bpm ECG Measurements Heart Rate [address] 159 P 87 QRSd 85 QRS -48 QT 417 T 63 QTc 408 Conclusion Sinus bradycardia...rate< 60 Left anterior fascicular block...axis(240,-40), init forces inf Low voltage, precordial leads...precordial leads <1.0mV No STEMI
--- NOTE | 2025-05-03 13:45 | DI.RAD_ITS ---
Exam(s) XR PORTABLE CHEST AP EXAM: XR PORTABLE CHEST AP CLINICAL HISTORY: trauma TECHNIQUE: 2D digital imaging was performed. Portable semi upright COMPARISON: CR XR PORTABLE CHEST AP from 05/05/2021 FINDINGS: Multiple overlying monitoring leads. LUNGS: Mildly increased densities at the left lung base. Small left pneumothorax, with the lung edge measuring 3 cm to the lung apex. HEART: Normal size. Coronary artery stent. AORTA: Normal diameter. BONES: Unremarkable for age. Soft tissues: Unremarkable. IMPRESSION: small left pneumothorax. No visible rib fractures. Findings called to Dr. Cote of the emergency department. DATA REPOSITORY: RADIATION DOSE DELIVERED:
--- NOTE | 2025-05-03 13:51 | DI.CT_ITS ---
Exam(s) CT CHEST/ABD/PEL W EXAM: CT CHEST/ABD/PEL W CLINICAL HISTORY: trauma. TECHNIQUE: Imaging Protocol: Axial computed tomography images with coronal and sagittal reformatted images were created and reviewed CONTRAST MATERIAL: Intravenous: Omnipaque 350 Contrast volume:85 Oral: None COMPARISON: CT CT THORACIC LUMBAR SPINE REC from 05/03/2025 FINDINGS: CHEST: LUNGS: There is left-sided pneumothorax, approximately 30 percent and there is some mild infiltrate in the left lower lobe which probably a combination of atelectasis and possibly mild contusion. Lesser amount of increased markings are noted in the opposite-right lung base. There are no obvious rib fractures nor sternal fractures.. MEDIASTINUM: There is pneumomediastinum evident. No evidence of sternal fracture or mediastinal hematoma. No incidental hilar nor mediastinal adenopathy. CARDIAC: Heart size upper normal. No pericardial effusion.Descending thoracic aorta is enlarged, exhibiting diameter of 4.6 cm. The diameter of the aortic arch is 2.7 cm. The diameter of the descending thoracic aorta is 2.9 cm. There is no evidence of aortic dissection OSSEOUS: No evidence of obvious acute rib fractures. No scapular fractures. No sternal fractures. No vertebral fractures.. ABDOMEN: AORTA: Abdominal aorta is intact. No aneurysm nor dissection. Aortoiliac segments also unremarkable as are the common femoral arteries. LIVER: Intact. No evidence of liver laceration nor subcapsular hematoma. No dilated intrahepatic ducts. GALLBLADDER/BILIARY: No obvious gallbladder pathology. CBD is not dilated. PANCREAS: No evidence of pancreatic mass nor dilatation of the pancreatic duct. SPLEEN: Intact. No lacerations. Upper normal size. Multiple calcified granulomas noted. Splenic and portal veins are patent. ADRENALS: No adrenal masses nor adrenal hemorrhage. KIDNEYS: There is a solitary left kidney which is intact with no laceration or subcapsular hematoma. It contains a few benign cysts which do not require further workup. Largest of these measures 2.5 cm. No solid mass in the kidney. There is a single 3 millimeter nonobstructive calculus in left kidney. Right kidney is not present, either not developed or surgically absent. No surgical clip seen. ABDOMINAL AORTA: Intact the nonenlarged. LYMPH NODES: There is no retroperitoneal nor paraaortic adenopathy. ABDOMINAL WALL: No significant bruising nor fluid collections. No anterior abdominal hernias. No inguinal hernias evident. GI: No evidence of bowel wall nor mesenteric hematomas. PELVIS: LYMPH NODES: There is no intrapelvic nor inguinal adenopathy. GI: No evidence of appendicitis.Extensive sigmoid diverticulosis without evidence of obvious acute diverticulitis. URINARY BLADDER: Appears unremarkable. No intraluminal clots nor masses nor calculi. REPRODUCTIVE: Surgical clips indicate probable prior prostatectomy. Seminal vesicles also not seen. OSSEOUS: No fractures. No significant osseous lesions. IMPRESSION: 1. Left-sided pneumothorax, approximately 30 percent. No shift of midline structures at this time. No pleural effusion. Mild infiltrate in the left lung base left lower lobe posterior basal segment. No obvious rib fractures. 2. There is also mild pneumomediastinum. 3. 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 No dissection. 4. There is a solitary left kidney. Sigmoid diverticulosis without evidence of diverticulitis. No significant acute trauma sequelae in the abdomen and pelvis. Findings discussed with ER physician following completion of this study 05/03/2025 RADIATION DOSE DELIVERED: 1,376.68mGy.cm Total DLP DATA REPOSITORY: All CT scans at this facility are submitted to the National Radiology Data Registry (NRDR) Dose Index Registry (DIR) with the [employer] (ACR). RADIATION OPTIMIZATION: All CT scans at this facility use at least one of these dose optimization techniques: automated exposure control; mA and/or kV adjustment per patient size (includes targeted exams where dose is matched to clinical indication); or iterative reconstruction.
--- NOTE | 2025-05-03 13:52 | DI.CT_ITS ---
Exam(s) CT THORACIC LUMBAR SPINE REC EXAM: CT THORACIC LUMBAR SPINE REC CLINICAL HISTORY: trauma TECHNIQUE: COMPARISON: No exams were available for comparison FINDINGS: THORACIC SPINAL COLUMN: No evidence of fracture of the thoracic vertebrae. No facet joint malalignment. No significant scoliosis. No incidental osseous lesions. LUMBOSACRAL SPINAL COLUMN: No evidence of fracture, listhesis, nor pars interarticularis defects. No significant disc space narrowing although there is some vacuum phenomena evident within some of the mid-upper disc spaces. There is facet arthropathy in the mid-lower lumbar spine. No facet joint malalignment.. No sacral fracture evident. IMPRESSION: No acute fractures in the thoracic and lumbosacral spinal columns.
--- NOTE | 2025-05-03 13:52 | DI.CT_ITS ---
Exam(s) CT HEAD CERVICAL SPINE WO EXAM: CT HEAD CERVICAL SPINE WO CLINICAL HISTORY: trauma. TECHNIQUE: Imaging Protocol: Axial computed tomography images with coronal and sagittal reformatted images were created and reviewed COMPARISON: No exams were available for comparison FINDINGS: Head CT Ventricles and Extra axial spaces: Normal in size and morphology for the patient's age. Hemorrhage: None. Cerebral parenchyma: No evidence of mass or acute infarct. Midline shift: None. Brainstem/Cerebellum: Normal. Calvarium: Normal. Visualized Paranasal sinuses/Mastoids: Clear. Soft tissues: Unremarkable. Cervical Spine CT BONES: Vertebral body heights are maintained. Alignment is normal. There is no evidence of acute fracture. Degenerative disc changes and facet degenerative changes are seen . SOFT TISSUES: No paraspinal hematoma. The airway appears intact. A small left pneumothorax is seen at the lung apices. There are chronic soft tissue calcifications posteriorly. IMPRESSION: Head CT: No acute abnormality. C-spine CT: Degenerative changes, no acute abnormality of the cervical spine. Small left pneumothorax. RADIATION DOSE DELIVERED: Total DLP DATA REPOSITORY: All CT scans at this facility are submitted to the National Radiology Data Registry (NRDR) Dose Index Registry (DIR) with the [employer] (ACR). RADIATION OPTIMIZATION: All CT scans at this facility use at least one of these dose optimization techniques: automated exposure control; mA and/or kV adjustment per patient size (includes targeted exams where dose is matched to clinical indication); or iterative reconstruction.
--- NOTE | 2025-05-03 13:55 | W.ED.GENAD ---
Discharge Plan Disposition Patient Disposition: Admit to [facility] Discharge Details Clinical Impression: Pneumothorax on left Admit Date/Time: 05/03/25 17:49 Admit Provider: Charly Cook Attending Provider: Charly Cook Primary Care Provider: Kay Healy ED Provider: Franco Cote Discharge Data Discharge Date/Time-TO BE ENTERED AT DEPARTURE: 05/03/25 18:30 HPI General Date/Time Provider Initiated Documentation: 05/03/25 13:51. HPI Narrative: MDM/Narrative: Initial Assessment: 89-year-old male presenting for fall off tractor with back and chest soreness, difficulty breathing. No reproducible chest wall or abdominal pain. Slight skin tear on radial aspect of right forearm, abrasion over left forehead, dried blood on lips, abrasion on right mid tib-fib and above right glutes on back. ED Course: - EKG performed - CT head and C-spine ordered to rule out intracranial or cervical spine injury - CT chest abdomen pelvis ordered to rule out intrathoracic, intraabdominal, intrapelvic as well as T and L-spine injuries Chest x-ray notable for left-sided pneumothorax. Given patient is stable without evidence of tension pneumo, will obtain CT imaging to rule out other life-threatening acute injuries prior to chest tube placement. CT scan shows left-sided pneumothorax without associated rib fractures or any other significant injuries. As such a left-sided pigtail catheter was inserted please see associated procedure note. Case discussed with Dr. Poly Arenas of general surgery who notes the patient will be admitted to the hospitalist and she will follow-up as lead sales consultant. Case discussed with Dr. Cook (hospitalist) who is agreeable with the plan for admission. Disposition: Admit to [facility] This document was created with assistance from [email or web address]. The patient consented to its use. HPI: The patient is an 89-year-old male with a history of myocardial infarction (VA) 6-7 months ago, currently undergoing cardiac rehabilitation, presenting due to a fall. The patient reports falling from a tractor, resulting in dorsalgia and thoracic pain, dyspnea, and a sensation of pressure. He also notes a contusion on the occipital region. There is no history of denture use or loss of consciousness associated with the fall. PAST SURGICAL HISTORY: The patient had two stents placed following the myocardial infarction 6-7 months ago. ROS: Negative besides as mentioned above Exam: Vital signs: Reviewed. General Appearance: Alert and oriented. No acute distress. HEENT: Abrasion over left forehead. Dried blood on lips. Neck: Supple, full range of motion, no observable masses, No meningeal sign. Respiratory: No Respiratory distress. No tachypnea. Cardiovascular: RRR, no edema. Gastrointestinal: No reproducible chest wall pain. No abdominal tenderness. Genitourinary: Perineum clear. Back: Abrasion above right gluteus on back. No midline cervical or lumbar spine tenderness. Musculoskeletal: Abrasion on right mid tib-fib. Skin: Slight skin tear on radial aspect of right forearm. Neurological: Alert and oriented to person, place, and time. Psychiatric: Appropriate for situation. Labs: Laboratory Tests Range/Units 05/03/25 05/03/25 14:00 15:23 WBC (4.4-10.8) 10^3/uL 10.17 RBC (4.36-5.78) 10^6/uL 5.37 Hgb (13.5-17.5) g/dL 16.6 Hct (40.0-50.0) % 50.1 H MCV (80-95) fL 93 MCH (27.0-33.0) pg 30.9 MCHC (32.0-36.0) % 33.1 RDW (11.8-14.1) % 13.0 Plt Count (130-400) 10^3/uL 192 MPV (8.0-11.0) fL 9.7 Immature Gran % % 0.5 Neutrophils % % 87.2 Lymphocytes % % 6.4 Monocytes % % 4.8 Eosinophils % % 0.7 Basophils % % 0.4 Nucleated RBC % (0.0-0.3) % 0.0 Absolute Neutrophils (1.2-6.7) 10^3/uL 8.87 H Absolute Lymphocytes (1.2-3.4) 10^3/uL 0.65 L Absolute Monocytes (0.1-0.8) 10^3/uL 0.49 Absolute Eosinophils (0.0-0.7) 10^3/uL 0.07 Absolute Basophils (0.0-0.2) 10^3/uL 0.04 PT (9.1-11.1) sec 10.9 INR (0.9-1.1) 1.1 APTT (20.6-30.2) sec 25.4 VBG Lactate (<or=2.0) mmol/L 1.3 Sodium (136-145) mmol/L 139 Potassium (3.5-5.1) mmol/L 4.4 Chloride (98-107) mmol/L 103 Carbon Dioxide (21.0-32.0) mmol/L 28.0 Anion Gap (3-11) mmol/L 8.0 BUN (7-18) mg/dL 21 H Creatinine (0.70-1.30) mg/dL 1.3 Est GFR (CKD-EPI 2020) (mL/min/1.73m2) 52.84 Glucose (74-106) mg/dL 109 H Calcium (8.5-10.1) mg/dL 9.7 Magnesium (1.8-2.4) mg/dL 1.8 Total Bilirubin (0.2-1.0) mg/dL 0.9 AST (15-37) U/L 26 ALT (16-63) U/L 24 Alkaline Phosphatase (46-116) U/L 77 Troponin I (<or=76) ng/L 13 14 Total Protein (6.4-8.2) g/dL 7.7 Albumin (3.4-5.0) g/dL 4.1 Lipase (<78) U/L 45 ABO/Rh O Positive Antibody Screen NEGATIVE Radiology: [] Exam(s) XR PORTABLE CHEST AP EXAM: XR PORTABLE CHEST AP CLINICAL HISTORY: trauma TECHNIQUE: 2D digital imaging was performed. Portable semi upright COMPARISON: CR XR PORTABLE CHEST AP from 05/05/2021 FINDINGS: Multiple overlying monitoring leads. LUNGS: Mildly increased densities at the left lung base. Small left pneumothorax, with the lung edge measuring 3 cm to the lung apex. HEART: Normal size. Coronary artery stent. AORTA: Normal diameter. BONES: Unremarkable for age. Soft tissues: Unremarkable. IMPRESSION: small left pneumothorax. No visible rib fractures. Findings called to Dr. Cote of the emergency department. DATA REPOSITORY: RADIATION DOSE DELIVERED: Exam(s) CT HEAD CERVICAL SPINE WO EXAM: CT HEAD CERVICAL SPINE WO CLINICAL HISTORY: trauma. TECHNIQUE: Imaging Protocol: Axial computed tomography images with coronal and sagittal reformatted images were created and reviewed COMPARISON: No exams were available for comparison FINDINGS: Head CT Ventricles and Extra axial spaces: Normal in size and morphology for the patient's age. Hemorrhage: None. Cerebral parenchyma: No evidence of mass or acute infarct. Midline shift: None. Brainstem/Cerebellum: Normal. Calvarium: Normal. Visualized Paranasal sinuses/Mastoids: Clear. Soft tissues: Unremarkable. Cervical Spine CT BONES: Vertebral body heights are maintained. Alignment is normal. There is no evidence of acute fracture. Degenerative disc changes and facet degenerative changes are seen . SOFT TISSUES: No paraspinal hematoma. The airway appears intact. A small left pneumothorax is seen at the lung apices. There are chronic soft tissue calcifications posteriorly. IMPRESSION: Head CT: No acute abnormality. C-spine CT: Degenerative changes, no acute abnormality of the cervical spine. Small left pneumothorax. RADIATION DOSE DELIVERED: Total DLP DATA REPOSITORY: All CT scans at this facility are submitted to the National Radiology Data Registry (NRDR) Dose Index Registry (DIR) with the [employer] (ACR). RADIATION OPTIMIZATION: All CT scans at this facility use at least one of these dose optimization techniques: automated exposure control; mA and/or kV adjustment per patient size (includes targeted exams where dose is matched to clinical indication); or iterative reconstruction. Exam(s) CT THORACIC LUMBAR SPINE REC EXAM: CT THORACIC LUMBAR SPINE REC CLINICAL HISTORY: trauma TECHNIQUE: COMPARISON: No exams were available for comparison FINDINGS: THORACIC SPINAL COLUMN: No evidence of fracture of the thoracic vertebrae. No facet joint malalignment. No significant scoliosis. No incidental osseous lesions. LUMBOSACRAL SPINAL COLUMN: No evidence of fracture, listhesis, nor pars interarticularis defects. No significant disc space narrowing although there is some vacuum phenomena evident within some of the mid-upper disc spaces. There is facet arthropathy in the mid-lower lumbar spine. No facet joint malalignment.. No sacral fracture evident. IMPRESSION: No acute fractures in the thoracic and lumbosacral spinal columns. Exam(s) CT CHEST/ABD/PEL W EXAM: CT CHEST/ABD/PEL W CLINICAL HISTORY: trauma. TECHNIQUE: Imaging Protocol: Axial computed tomography images with coronal and sagittal reformatted images were created and reviewed CONTRAST MATERIAL: Intravenous: Omnipaque 350 Contrast volume:85 Oral: None COMPARISON: CT CT THORACIC LUMBAR SPINE REC from 05/03/2025 FINDINGS: CHEST: LUNGS: There is left-sided pneumothorax, approximately 30 percent and there is some mild infiltrate in the left lower lobe which probably a combination of atelectasis and possibly mild contusion. Lesser amount of increased markings are noted in the opposite-right lung base. There are no obvious rib fractures nor sternal fractures.. MEDIASTINUM: There is pneumomediastinum evident. No evidence of sternal fracture or mediastinal hematoma. No incidental hilar nor mediastinal adenopathy. CARDIAC: Heart size upper normal. No pericardial effusion.Descending thoracic aorta is enlarged, exhibiting diameter of 4.6 cm. The diameter of the aortic arch is 2.7 cm. The diameter of the descending thoracic aorta is 2.9 cm. There is no evidence of aortic dissection OSSEOUS: No evidence of obvious acute rib fractures. No scapular fractures. No sternal fractures. No vertebral fractures.. ABDOMEN: AORTA: Abdominal aorta is intact. No aneurysm nor dissection. Aortoiliac segments also unremarkable as are the common femoral arteries. LIVER: Intact. No evidence of liver laceration nor subcapsular hematoma. No dilated intrahepatic ducts. GALLBLADDER/BILIARY: No obvious gallbladder pathology. CBD is not dilated. PANCREAS: No evidence of pancreatic mass nor dilatation of the pancreatic duct. SPLEEN: Intact. No lacerations. Upper normal size. Multiple calcified granulomas noted. Splenic and portal veins are patent. ADRENALS: No adrenal masses nor adrenal hemorrhage. KIDNEYS: There is a solitary left kidney which is intact with no laceration or subcapsular hematoma. It contains a few benign cysts which do not require further workup. Largest of these measures 2.5 cm. No solid mass in the kidney. There is a single 3 millimeter nonobstructive calculus in left kidney. Right kidney is not present, either not developed or surgically absent. No surgical clip seen. ABDOMINAL AORTA: Intact the nonenlarged. LYMPH NODES: There is no retroperitoneal nor paraaortic adenopathy. ABDOMINAL WALL: No significant bruising nor fluid collections. No anterior abdominal hernias. No inguinal hernias evident. GI: No evidence of bowel wall nor mesenteric hematomas. PELVIS: LYMPH NODES: There is no intrapelvic nor inguinal adenopathy. GI: No evidence of appendicitis.Extensive sigmoid diverticulosis without evidence of obvious acute diverticulitis. URINARY BLADDER: Appears unremarkable. No intraluminal clots nor masses nor calculi. REPRODUCTIVE: Surgical clips indicate probable prior prostatectomy. Seminal vesicles also not seen. OSSEOUS: No fractures. No significant osseous lesions. IMPRESSION: 1. Left-sided pneumothorax, approximately 30 percent. No shift of midline structures at this time. No pleural effusion. Mild infiltrate in the left lung base left lower lobe posterior basal segment. No obvious rib fractures. 2. There is also mild pneumomediastinum. 3. 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 No dissection. 4. There is a solitary left kidney. Sigmoid diverticulosis without evidence of diverticulitis. No significant acute trauma sequelae in the abdomen and pelvis. Findings discussed with ER physician following completion of this study 05/03/2025 RADIATION DOSE DELIVERED: 1,376.68mGy.cm Total DLP DATA REPOSITORY: All CT scans at this facility are submitted to the National Radiology Data Registry (NRDR) Dose Index Registry (DIR) with the [employer] (ACR). RADIATION OPTIMIZATION: All CT scans at this facility use at least one of these dose optimization techniques: automated exposure control; mA and/or kV adjustment per patient size (includes targeted exams where dose is matched to clinical indication); or iterative reconstruction. Related Data Home Medications ?Medication ?Instructions ?Recorded ?Confirmed ascorbate calcium (vitamin C) 500 1 gm PO DAILY 03/18/20 05/03/25 mg tablet cholecalciferol (vitamin D3) 25 25 mcg PO DAILY 05/10/20 05/03/25 mcg (1,000 unit) capsule zinc 50 mg tablet 50 mg PO DAILY 05/10/20 05/03/25 vitamin K2 100 mcg capsule 100 mcg PO DAILY 01/28/21 05/03/25 coenzyme Q10 100 mg capsule 100 mg PO DAILY 09/05/21 05/03/25 (CoQ-10) nitroglycerin 0.4 mg sublingual 0.4 mg sublingual Q5M PRN chest 02/17/24 05/03/25 tablet pain #30 tabs aspirin 81 mg tablet 81 mg PO DAILY 04/12/25 05/03/25 lisinopril 5 mg tablet 5 mg PO DAILY 04/12/25 05/03/25 bisoprolol fumarate 5 mg tablet mg 05/03/25 clopidogrel 75 mg tablet mg 05/03/25 Previous Rx's ?Medication ?Instructions ?Recorded nitroglycerin 0.4 mg sublingual 0.4 mg sublingual Q5M PRN chest 02/17/24 tablet pain #30 tabs Allergies Allergy/AdvReac Type Severity Reaction Status Date / Time house dust Allergy Other (See Verified 05/03/25 15:03 Comment) General Stated Complaint: Trauma WOLFGANG: 2 Course Vital Signs Vital signs: Vital Signs Temperature 36.9 C 05/03/25 13:42 Pulse 74 05/03/25 13:42 Respiratory Rate 16 05/03/25 13:42 Pulse Oximetry 94 05/03/25 13:42 Temperature 36.9 C 05/03/25 13:42 Pulse 74 05/03/25 13:42 Respiratory Rate 16 05/03/25 13:42 Pulse Oximetry 94 05/03/25 13:42 Pain Level 7 05/03/25 13:42 PFSH All Active Problems (Updated 05/03/25 @ 19:08 by Yris Archuleta APRN) On deep vein thrombosis (DVT) prophylaxis (Acute) Pain management (Acute) Pneumothorax on left (Acute) Sensorineural hearing loss (SNHL) of both ears (Acute) Multiple exostoses (Acute) Excessive cerumen in right ear canal (Acute) Coronary artery disease (Chronic) Hypertension (Chronic) ST elevation (STEMI) myocardial infarction (Acute) Laceration of left ring finger with damage to nail w/o foreign body (Acute) Renal cell carcinoma (Acute) Kidney stones (Chronic) Prostate cancer (Chronic) Medical History Actinic keratosis Prostate cancer Surgical History Hx of tonsillectomy History of appendectomy H/O prostatectomy H/O right nephrectomy Social History Smoking/Tobacco Use Status: Never Smoking risk assessment performed?: Yes Alcohol Intake: never Drug use: Never Substance use type: does not use Household members: spouse Housing: house Current gender identity: male Do you feel safe at home: Yes Do you feel safe in your relationship?: Yes
[2025-05-03 14:18] LABS: Abs Immature Grans 0.05 10^3/uL (0.0-0.06); HCT 50.1 % (40.0-50.0); HGB 16.6 g/dL (13.5-17.5); Immature Grans % 0.5 %; MCH 30.9 pg (27.0-33.0); MCHC 33.1 % (32.0-36.0); MCV 93 fL (80-95); MPV 9.7 fL (8.0-11.0); Platelet Count 192 10^3/uL (130-400); RBC 5.37 10^6/uL (4.36-5.78); RDW 13.0 % (11.8-14.1); RDW-SD 44.7 fL; WBC 10.17 10^3/uL (4.4-10.8)
[2025-05-03] MEDS: MORPHine 4 MG/ML SYR IVP (14:20)
[2025-05-03 14:30] LABS: INR 1.1 (0.9-1.1); PTT Activated 25.4 sec (20.6-30.2); Prothrombin Time 10.9 sec (9.1-11.1)
[2025-05-03] MEDS: Normal Saline Flush 10 ML SYR IVP ×2 (14:39→21:20)
[2025-05-03] MEDS: Normal Saline - Diluent 50 ML VIAL IJ (14:39)
[2025-05-03] MEDS: Omnipaque 350 MG/ML 500 ML BTL-Imaging package IJ (14:40)
[2025-05-03] MEDS: ACETAMINOPHEN 1,000 MG/100 ML BAG 400 MG IVPB (14:55)
[2025-05-03] MEDS: Ketamine 500 MG/10 ML VIAL 25 MG IVP (15:34)
[2025-05-03 15:36] LABS: ALT 24 U/L (16-63); AST 26 U/L (15-37); Albumin 4.1 g/dL (3.4-5.0); Alkaline Phosphatase 77 U/L (46-116); Anion Gap 8.0 mmol/L (3-11); BUN 21 mg/dL (7-18); Bilirubin, Total 0.9 mg/dL (0.2-1.0); CO2 28.0 mmol/L (21.0-32.0); Calcium 9.7 mg/dL (8.5-10.1); Chloride 103 mmol/L (98-107); Estimated GFR 52.84 (mL/min/1.73m2); Glucose 109 mg/dL (74-106); Lipase 45 U/L (<78); Potassium 4.4 mmol/L (3.5-5.1); Sodium 139 mmol/L (136-145); Total Protein 7.7 g/dL (6.4-8.2)
[2025-05-03] MEDS: Ketamine 500 MG/10 ML VIAL (16:01)
[2025-05-03 16:24] LABS: Troponin I 13 ng/L (<or=76)
[2025-05-03] MEDS: HYDROmorphone 2 MG/ML SYR (16:28)
[2025-05-03 16:41] LABS: Troponin I 14 ng/L (<or=76)
--- NOTE | 2025-05-03 16:45 | DI.RAD_ITS ---
Exam(s) XR PORTABLE CHEST AP POST LINE EXAM: XR PORTABLE CHEST AP POST LINE CLINICAL HISTORY: chest tube TECHNIQUE: 2D digital imaging was performed. AP portable exam COMPARISON: CR XR PORTABLE CHEST AP from 05/03/[address] CHEST/ABD/PEL W from 05/03/2025 FINDINGS: Exam is limited by overlying monitoring leads which overlie the lung apices. A left-sided chest tube is been inserted with the pigtail lying laterally in the mid to lower left chest. LUNGS: Clear. There is a small persistent left pneumothorax, not definitely improved compared to the previous exam. Evaluation is limited due to monitoring leads overlying the level of the lung apex. HEART: Normal size. AORTA: Normal diameter. BONES: Unremarkable for age. Soft tissues: There is a small amount of air in the soft tissues lateral to the left ribs outside of the left chest. IMPRESSION: Persistent small left pneumothorax. The chest tube lies peripherally in the left lateral mid chest. DATA REPOSITORY: RADIATION DOSE DELIVERED:
--- NOTE | 2025-05-03 17:31 | W.PM.HP.N ---
Date of service: 05/03/25 Time of Service: 17:32 Assessment and Plan Assessment and plan (1) Pneumothorax on left: Status: Acute Assessment and plan: As per imaging and HPI Chest tube: monitoring and management as per nursing protocol Surgery consult -Chest tube to pleurex with 20cm H2O continuous wall suction telemetry continuous O2 monitoring (2) Coronary artery disease: Status: Chronic Assessment and plan: On home dose ASA , not taking plavix anymore - and takes pine bark instead On home dose statin (3) Hypertension: Status: Chronic Assessment and plan: On home bisoprolol and lisinopril SBP 165-180 most likely d/t pain Continue to monitor and adjust meds PRN (4) Pain management: Status: Acute Assessment and plan: In the setting of trauma and left sided pneumothorax Scheduled APAP- will give IV overnight then reassess PRN hydromorphone IV bowel management medicines (5) On deep vein thrombosis (DVT) prophylaxis: Status: Acute Assessment and plan: On LMWH discussed with Dr. 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 No report of LOC, bruise to Left forehead, abraisons to right forearm and lower leg. No hypotension on arrival, SBP 165, no hypoxia as per charted saturations, on 2l/minutes of oxygen d/t difficulty breathing. CT of the chest/ abd /pelvis significant for 30% in size- L pneumothorax, left base and lower lobe infiltrate, mild pneumomediatinum, ascending aorta mearing 4.6cm w/o dissection. Also seen non-obstructive nephrolithisis and cysts to the solitary left kidney. Blood work is unremarkable except for findings pointing to slight dehydration as per BUN and Hct. Left sided chest tube inserted in the ED with subsequent reduction in size of L sided pneumothorax. Treated with Acetaminophen for pain w/o success, Ketmaine IV X1 and IV hydromorphone added in the ED.The patient was admitted to the medical surgical floor under the hospitalist service with surgical consult as per surgery recommendation for pneumothorax s/p trauma, intractable pain. Full code status confirmed. Patient denies loss of consciousness, blurred vision, abdominal pain, nausea, vomiting, diarrhea or dysuria; reports left sided chest pain on deep breathing and mobilization, taking pine bark instead of plavix which was agreed upon by medical practitioner and spouse who has a masters degree in naturopathic medicine. Review of Systems All systems reviewed & are unremarkable except as noted in HPI and below PFSH All Active Problems (Updated 05/03/25 @ 19:08 by Yris Archuleta APRN) On deep vein thrombosis (DVT) prophylaxis (Acute) Pain management (Acute) Pneumothorax on left (Acute) Sensorineural hearing loss (SNHL) of both ears (Acute) Multiple exostoses (Acute) Excessive cerumen in right ear canal (Acute) Coronary artery disease (Chronic) Hypertension (Chronic) ST elevation (STEMI) myocardial infarction (Acute) Laceration of left ring finger with damage to nail w/o foreign body (Acute) Renal cell carcinoma (Acute) Kidney stones (Chronic) Prostate cancer (Chronic) Medical History Actinic keratosis Prostate cancer Surgical History Hx of tonsillectomy History of appendectomy H/O prostatectomy H/O right nephrectomy Social History Smoking/Tobacco Use Status: Never Smoking risk assessment performed?: Yes Alcohol Intake: never Drug use: Never Substance use type: does not use Household members: spouse Current gender identity: male Do you feel safe at home: Yes Do you feel safe in your relationship?: Yes Meds Allergies and Home Medications Allergies Allergy/AdvReac Type Severity Reaction Status Date / Time house dust Allergy Other (See Verified 05/03/25 15:03 Comment) Home Medications ?Medication ?Instructions ?Recorded ?Confirmed ?Type ascorbate calcium (vitamin C) 500 1 gm PO DAILY 03/18/20 05/03/25 History mg tablet cholecalciferol (vitamin D3) 25 25 mcg PO DAILY 05/10/20 05/03/25 History mcg (1,000 unit) capsule zinc 50 mg tablet 50 mg PO DAILY 05/10/20 05/03/25 History vitamin K2 100 mcg capsule 100 mcg PO DAILY 01/28/21 05/03/25 History coenzyme Q10 100 mg capsule 100 mg PO DAILY 09/05/21 05/03/25 History (CoQ-10) nitroglycerin 0.4 mg sublingual 0.4 mg sublingual Q5M PRN chest 02/17/24 05/03/25 Rx tablet pain #30 tabs aspirin 81 mg tablet 81 mg PO DAILY 04/12/25 05/03/25 History lisinopril 5 mg tablet 5 mg PO DAILY 04/12/25 05/03/25 History bisoprolol fumarate 5 mg tablet mg 05/03/25 History clopidogrel 75 mg tablet mg 05/03/25 History Exam Narrative Exam Narrative: Constitutional The patient is sitting minimally uncomfortable without acute distress, HENMT: Bruising left forehead, normocephalic, facial structures with normal appearance, [place] Eyes: Well aligned, intact ROM Neuro:alert and oriented to self, person, place time and situation. No neurological focal deficit Chest:Chest is symmetrical, no flailing , dressing DCI to left sided chest tube to pleurex at 20 cm H2O continuous wall suction Resp: Shallow breathing pattern, speaks in full sentence, clear lung right upper lung otherwise diminished breath sounds Cardio: regular rhythm, S1, S2, no murmur GI: Abdomen is not distended, soft and non tender, bowel sounds are present Integumentary: Abrasions to left forehead, right forearm, right LL Extremities: strength 5/5 to bilateral lower and upper extremities Psych: RASS 0, congruent mood and normal affect. Results Labs 05/03/25 14:00 05/03/25 14:00 Labs: Laboratory Results - last 24 hr 05/03/25 05/03/25 14:00 15:23 WBC 10.17 RBC 5.37 Hgb 16.6 Hct 50.1 H MCV 93 MCH 30.9 MCHC 33.1 RDW 13.0 Plt Count 192 MPV 9.7 Immature Gran % 0.5 Neutrophils % 87.2 Lymphocytes % 6.4 Monocytes % 4.8 Eosinophils % 0.7 Basophils % 0.4 Nucleated RBC % 0.0 Absolute Neutrophils 8.87 H Absolute Lymphocytes 0.65 L Absolute Monocytes 0.49 Absolute Eosinophils 0.07 Absolute Basophils 0.04 PT 10.9 INR 1.1 APTT 25.4 VBG Lactate 1.3 Sodium 139 Potassium 4.4 Chloride 103 Carbon Dioxide 28.0 Anion Gap 8.0 BUN 21 H Creatinine 1.3 Est GFR (CKD-EPI 2020) 52.84 Glucose 109 H Calcium 9.7 Total Bilirubin 0.9 AST 26 ALT 24 Alkaline Phosphatase 77 Troponin I 13 14 Total Protein 7.7 Albumin 4.1 Lipase 45 ABO/Rh O Positive Antibody Screen NEGATIVE Last Vital Signs Temp 36.9 C 05/03/25 13:42 Pulse 68 05/03/25 15:41 Resp 13 05/03/25 15:41 BP 201/93 H 05/03/25 15:40 Pulse Ox 98 05/03/25 15:41 Time Spent Time spent with Patient: >75 minutes Time was spent: preparing to see the patient(eg.review tests), obtaining and/or reviewing separately otained hiistory, ordering medications,tests, procedures, referring, communicating with other health social worker palliative care, indepentently interpreting results, counseling the patient, care coordination and other
[2025-05-03 18:08] LABS: Magnesium 1.8 mg/dL (1.8-2.4)
--- NOTE | 2025-05-03 18:18 | W.PC.ACHO ---
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 scrape to right arm. pt arrives in c-collar. doesn't rember events lading up to fall but is axox4 now Medical / Surgical History (Last Reviewed 08/20/23 @ 09:48 by Porfirio Schwartz MD) Actinic keratosis Prostate cancer (Last Reviewed 08/20/23 @ 09:48 by Porfirio Schwartz MD) Hx of tonsillectomy History of appendectomy H/O prostatectomy H/O right nephrectomy Most Recent Vital Signs Temperature 36.9 C 05/03/25 13:42 Pulse 71 05/03/25 18:10 Pulse 71 05/03/25 18:10 Respiratory Rate 18 05/03/25 18:10 Respiratory Effort Normal 05/03/25 17:15 Respiratory Depth Normal 05/03/25 17:15 Respiratory Pattern Normal 05/03/25 14:12 Blood Pressure 182/85 H 05/03/25 17:21 Blood Pressure Mean 123 05/03/25 17:21 Pulse Oximetry 94 05/03/25 18:10 Oxygen Delivery Method Nasal Cannula 05/03/25 17:15 Oxygen Flow Rate 2 05/03/25 17:15 Pain Level 1 05/03/25 17:14 Comment O2 increased to 5L per verbal order by Dr. Choudhury during placement of CT tube. PO improving to 96% 05/03/25 16:07 Allergies house dust Allergy (Verified 05/03/25 15:03) Other (See Comment) Precautions Isolation Fall precaution 05/03/25 14:15 Active Medications Generic Name Dose Route Start Last Admin Trade Name Freq PRN Reason Stop Dose Admin Iohexol 500 ml 05/03/25 14:45 05/03/25 14:40 Omnipaque 350 Mg/Ml 500 Ml Btl-Imaging Package IJ 06/02/25 23:59 75 ml DIRECTED SARWAT Administration Sodium Chloride 50 ml 05/03/25 14:45 05/03/25 14:39 Normal Saline - Diluent 50 Ml Vial IJ 50 ml DIRECTED SARWAT Administration Sodium Chloride 0 ml 05/03/25 14:39 09/11/25 14:39 Normal Saline Flush 10 Ml Syr IVP 10 ml PRN PRN Administration IV IV Catheter Type [Left Saline Lock Antecubital] IV Catheter Gauge [Left 18 Antecubital] Diagnostics 05/03/25 05/03/25 05/03/25 Range/Units 17:19 15:23 14:00 WBC 10.17 (4.4-10.8) 10^3/uL RBC 5.37 (4.36-5.78) 10^6/uL Hgb 16.6 (13.5-17.5) g/dL Hct 50.1 H (40.0-50.0) % MCV 93 (80-95) fL MCH 30.9 (27.0-33.0) pg MCHC 33.1 (32.0-36.0) % RDW 13.0 (11.8-14.1) % Plt Count 192 (130-400) 10^3/uL MPV 9.7 (8.0-11.0) fL Immature Gran % 0.5 % Neutrophils % 87.2 % Lymphocytes % 6.4 % Monocytes % 4.8 % Eosinophils % 0.7 % Basophils % 0.4 % Nucleated RBC % 0.0 (0.0-0.3) % Absolute Neutrophils 8.87 H (1.2-6.7) 10^3/uL Absolute Lymphocytes 0.65 L (1.2-3.4) 10^3/uL Absolute Monocytes 0.49 (0.1-0.8) 10^3/uL Absolute Eosinophils 0.07 (0.0-0.7) 10^3/uL Absolute Basophils 0.04 (0.0-0.2) 10^3/uL PT 10.9 (9.1-11.1) sec INR 1.1 (0.9-1.1) APTT 25.4 (20.6-30.2) sec VBG Lactate 1.3 (<or=2.0) mmol/L Sodium 139 (136-145) mmol/L Potassium 4.4 (3.5-5.1) mmol/L Chloride 103 (98-107) mmol/L Carbon Dioxide 28.0 (21.0-32.0) mmol/L Anion Gap 8.0 (3-11) mmol/L BUN 21 H (7-18) mg/dL Creatinine 1.3 (0.70-1.30) mg/dL Est GFR (CKD-EPI 2020) 52.84 (mL/min/1.73m2) Glucose 109 H (74-106) mg/dL Calcium 9.7 (8.5-10.1) mg/dL Magnesium 1.8 (1.8-2.4) mg/dL Total Bilirubin 0.9 (0.2-1.0) mg/dL AST 26 (15-37) U/L ALT 24 (16-63) U/L Alkaline Phosphatase 77 (46-116) U/L Troponin I 14 13 (<or=76) ng/L Total Protein 7.7 (6.4-8.2) g/dL Albumin 4.1 (3.4-5.0) g/dL Lipase 45 (<78) U/L Urine Color Pending Urine Clarity Pending Urine pH Pending Ur Specific [place] Pending Urine Protein Pending Urine Ketones Pending Urine Blood Pending Urine Nitrite Pending Urine Bilirubin Pending Urine Urobilinogen Pending Ur Leukocyte Esterase Pending Urine Glucose Pending ABO/Rh O Positive Antibody Screen NEGATIVE Intake and Output - 24 Hour Total 05/03/25 13:32 thru 05/03/25 14:17 Intake Total 10 Balance 10 Weight 81 kg Intake: IV 10 Falls Risk Assessment History of Falls Admit Due to Fall 05/03/25 14:11 Contributing Factors Impairments 05/03/25 14:11 Ambulatory Aids Independent 05/03/25 14:11 Tubes/Lines W/no contributing factors 05/03/25 14:11 Gait Evaluation No gait disturbance 05/03/25 14:11 Cognition No cognitive impairment 05/03/25 14:11 Fall Total Score 38 05/03/25 14:11 Level of Risk Moderate Risk 05/03/25 14:11 Problems (Last Reviewed 08/20/23 @ 09:48 by Porfirio Schwartz MD) Pneumothorax on left (Acute) v v v v v v v v v Sending and/or Receiving Nurses: Please use comment section below to note any information pertinent to the patient hand-off not included above. Information / Comments: Report received from: Pt was in tractor accident at home, [place] -, does have collapsed L lung, and Chest tube inserted into left wall, pain medications given VS WNL at this time. BONILLA Paez
[2025-05-03] MEDS: Docusate Sodium 100 MG CAP PO (21:19)
[2025-05-03] MEDS: Acetaminophen 325 MG TAB 650 MG PO (22:24)
[2025-05-04 01:30] LABS: Glucose Negative (Negative)
[2025-05-04 02:41] VITALS: BP 133/71; PULSE 60; RESP 18; TEMP 36.4; O2SAT 98
[2025-05-04] MEDS: Heparin 5,000 UNITS/ML VIAL 5000 UNITS SC ×3 (06:05→21:06)
[2025-05-04 06:25] LABS: Abs Immature Grans 0.04 10^3/uL (0.0-0.06); HCT 45.7 % (40.0-50.0); HGB 14.6 g/dL (13.5-17.5); Immature Grans % 0.4 %; MCH 30.7 pg (27.0-33.0); MCHC 31.9 % (32.0-36.0); MCV 96 fL (80-95); MPV 10.2 fL (8.0-11.0); Platelet Count 142 10^3/uL (130-400); RBC 4.76 10^6/uL (4.36-5.78); RDW 13.0 % (11.8-14.1); RDW-SD 46.7 fL; WBC 10.99 10^3/uL (4.4-10.8)
[2025-05-04 07:21] VITALS: BP 150/70; PULSE 58; RESP 17; TEMP 36.4; O2SAT 96
[2025-05-04 07:29] LABS: Anion Gap 7.2 mmol/L (3-11); BUN 17 mg/dL (7-18); CO2 27.8 mmol/L (21.0-32.0); Calcium 8.7 mg/dL (8.5-10.1); Chloride 104 mmol/L (98-107); Estimated GFR 82.15 (mL/min/1.73m2); Glucose 118 mg/dL (74-106); Potassium 4.2 mmol/L (3.5-5.1); Sodium 139 mmol/L (136-145)
[2025-05-04] MEDS: Acetaminophen 325 MG TAB 650 MG PO ×3 (07:50→20:37)
[2025-05-04] MEDS: Bisoprolol 5 MG TAB PO (07:51)
[2025-05-04] MEDS: Zinc Sulfate 220 MG TAB PO (07:52)
[2025-05-04] MEDS: Lisinopril 5 MG TAB PO (07:53)
[2025-05-04] MEDS: Normal Saline Flush 10 ML SYR IVP ×2 (07:53→21:07)
[2025-05-04] MEDS: Cholecalciferol (Vitamin D3) 1,000 UNIT TAB 1000 UNITS PO (07:53)
[2025-05-04] MEDS: Ascorbic Acid 500 MG TAB 1000 MG PO (08:04)
[2025-05-04] MEDS: Aspirin 81 MG CHEW PO (08:05)
--- NOTE | 2025-05-04 09:14 | NUR.NOTE ---
Nursing Note: The patient used his call santana to let me know that he leaned over his bed to use his urinal and his chest tube had been disconnected. I notified the primary nurse who came in and reconnected the chest tube and assessed. I taped the tubing to prevent further disconnection.
--- NOTE | 2025-05-04 09:46 | PDOC.CMIN ---
Date of service: 05/04/25 Time of Service: 09:47 Care Management Initial Assmt Initial Assessment Reason for Hospitalization: Pneumothorax Functional Status/Living Situation Patient Presentation: Eric was awake and lying in bed when CM met with him. He was polite and easy to engage in conversation, despite being hard of hearing. Per pt, he was injured while attempting to move an antique car around in his garage with a garden tractor. He stated the next thing he knew the car was over the bank and he was staring into the eyes of an EMT. At some point during these events is where he believes is where he lost his hearing aids. Per pt, his was watching from the house and was the one who called EMS. He reports that they have been at it along time and she is never surprised when he gets into these types of predicaments. Eric is active and independent at baseline. He is originally from [place] and moved to [place], [place] 11 years ago with his Laureen. He is well supported by family, with three adult children: daughter Mary lives next door, Son Edis resides in [place] and misael Lombardo whom resides at the family home in [place]. During the winter months Amalia stay in their condo in [place] and are planning to leave at the end of the month. 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 Currently, he focuses on [employer] and stays very busy tending to a large garden. He donates much of his produce to local food pantries, churches and to [employer]. Town of Residence: [place] Resides with: Spouse ( Laureen) Significant Other/Family: Local Natural Supports: Daughter Mary lives next door, Misael Randhawa resides in [place] and misael Lombardo whom resides at the family home in [place]. Employment Status: Retired Instrumental Activities of Daily Living (ADLs): Independent Activities/Hobbies/SocialSupport: Gardening and investments Medications Medication Management: No Issues/Barriers identified Physical Functioning/Mobility Assistive Device: None Advance Directives Advance Directives: Do you have an Advance Directive: N 05/03/25, 18:18 AD On File at [facility]: N 04/12/25, 10:45 Date Asked 05/03/25 05/03/25, 18:18 AD Date Reviewed COLST On File at [facility] No 05/03/25, 18:18 COLST Date Scanned Code Status Resuscitation Status Full Code Portal Pt does not currently have a portal and education provided: Yes Insurance Coverage/Financial Issues Insurance: Medicare Part A & B - [id number] [facility] [id number] Financial Issues: None Care Team Visit Care Team Role Provider Type Madalyn Berry NP MD [facility] STAFF PHYSICIAN Kay Healy Primary Care Provider NON-[facility] STAFF PHYSICIAN Sarah Bartlett MD Other Providers [facility] STAFF PHYSICIAN Franco Cote MD Emergency Provider [facility] STAFF PHYSICIAN Charly Cook MD Admit Provider [facility] STAFF PHYSICIAN Attending Provider Discharge Potential Discharge Needs: PCP F/U Appt Anticipated Barriers to Discharge: None Identified Patient/Family Education Needs: Review discharge instructions, discuss Ask Me Three Transportation: Private vehicle Plan: Anticipate, Eric will discharge home via private vehicle with family once medically cleared. He will follow up with community providers and continue per his discharge plan of care. CM will continue to follow and support discharge coordination of services, as needed. Social Determinants of Health Screening Social Determinants of health last assessed in clinic: 05/04/25 Will the Patient Participate in the Screening?: Yes Do you worry about having a steady place to live?: no Problems where you live: no known problems In the past 12 months, have you had to go without electric, gas, oil or water in your home?: no 1. Within the past 12 months, we worried whether our food would run out before we got money to buy more.: Never true 2. Within the past 12 months, the food we bought just didn't last and we didn't have money to get more.: Never true Has lack of transportation kept you from medical appointments or from doing things needed for daily living?: no Has anyone in your life made you feel unsafe or unsupported?: no How hard is it for you to pay for the very basics like food, housing, medical care, and heating? Would you say it is:: Not hard at all Do you want help finding or keeping work or a job?: I do not need or want help If for any reason you need help with day-to-day activities such as bathing, preparing meals, shopping, managing finances, etc., do you get the help you need?: I don?t need any help How often do you feel lonely or isolated from those around you?: Never Do you speak a language other than Ethiopian at home?: No Does the patient want assistance with any of the above?: No PFSH All Active Problems (Updated 05/03/25 @ 19:08 by Yris Archuleta APRN) On deep vein thrombosis (DVT) prophylaxis (Acute) Pain management (Acute) Pneumothorax on left (Acute) Sensorineural hearing loss (SNHL) of both ears (Acute) Multiple exostoses (Acute) Excessive cerumen in right ear canal (Acute) Coronary artery disease (Chronic) Hypertension (Chronic) ST elevation (STEMI) myocardial infarction (Acute) Laceration of left ring finger with damage to nail w/o foreign body (Acute) Renal cell carcinoma (Acute) Kidney stones (Chronic) Prostate cancer (Chronic) Medical History Actinic keratosis Prostate cancer Surgical History Hx of tonsillectomy History of appendectomy H/O prostatectomy H/O right nephrectomy Social History Smoking/Tobacco Use Status: Never Smoking risk assessment performed?: Yes Alcohol Intake: never Drug use: Never Substance use type: does not use Household members: spouse Housing: house Current gender identity: male Do you feel safe at home: Yes Do you feel safe in your relationship?: Yes
--- NOTE | 2025-05-04 10:07 | W.ED.PROC ---
Date of service: 05/03/25 Time of Service: 14:56 Procedures Chest Tube Chest Tube 1: Chest Tube Location: mid axillary line and forth interspace Size of Persian Tube (mm): 16 Chest Tube Prep: betadine prep and sterile drapes applied Local Anesthetic: Lidocaine 1% and with Epi Amount of anesthesia used (mL): 5 Incision Made With: #11 blade Post Procedure: sutured to skin Amount of initial drainage (mL): 0 Post Procedure CXR?: Yes Patient Tolerated Procedure: Yes Complications: pain Progress: Pigtail catheter chest tube placed and sutured in place. Occlusive bandage placed and catheter was then applied to wall suction with bubbles present in atrium. CXR shows placement of catheter in pleural space. Patient with improved O2 saturations following procedure.
--- NOTE | 2025-05-04 10:43 | W.MEDCONSULT ---
PFSH All Active Problems (Updated 05/03/25 @ 19:08 by Yris Archuleta APRN) On deep vein thrombosis (DVT) prophylaxis (Acute) Pain management (Acute) Pneumothorax on left (Acute) Sensorineural hearing loss (SNHL) of both ears (Acute) Multiple exostoses (Acute) Excessive cerumen in right ear canal (Acute) Coronary artery disease (Chronic) Hypertension (Chronic) ST elevation (STEMI) myocardial infarction (Acute) Laceration of left ring finger with damage to nail w/o foreign body (Acute) Renal cell carcinoma (Acute) Kidney stones (Chronic) Prostate cancer (Chronic) Medical History Actinic keratosis Prostate cancer Surgical History Hx of tonsillectomy History of appendectomy H/O prostatectomy H/O right nephrectomy Social History Smoking/Tobacco Use Status: Never Smoking risk assessment performed?: Yes Alcohol Intake: never Drug use: Never Substance use type: does not use Household members: spouse Housing: house Current gender identity: male Do you feel safe at home: Yes Do you feel safe in your relationship?: Yes Results Last Vital Signs Temp 36.4 C L 05/04/25 07:21 Pulse 58 L 05/04/25 07:21 Resp 17 05/04/25 07:21 BP 150/70 H 05/04/25 07:21 Pulse Ox 96 05/04/25 07:21 Labs 05/04/25 05:58 05/04/25 06:55 Labs: Laboratory Results - last 24 hr 05/03/25 05/03/25 05/04/25 14:00 15:23 01:00 WBC 10.17 RBC 5.37 Hgb 16.6 Hct 50.1 H MCV 93 MCH 30.9 MCHC 33.1 RDW 13.0 Plt Count 192 MPV 9.7 Immature Gran % 0.5 Neutrophils % 87.2 Lymphocytes % 6.4 Monocytes % 4.8 Eosinophils % 0.7 Basophils % 0.4 Nucleated RBC % 0.0 Absolute Neutrophils 8.87 H Absolute Lymphocytes 0.65 L Absolute Monocytes 0.49 Absolute Eosinophils 0.07 Absolute Basophils 0.04 PT 10.9 INR 1.1 APTT 25.4 VBG Lactate 1.3 Sodium 139 Potassium 4.4 Chloride 103 Carbon Dioxide 28.0 Anion Gap 8.0 BUN 21 H Creatinine 1.3 Est GFR (CKD-EPI 2020) 52.84 Glucose 109 H Calcium 9.7 Magnesium 1.8 Total Bilirubin 0.9 AST 26 ALT 24 Alkaline Phosphatase 77 Troponin I 13 14 Total Protein 7.7 Albumin 4.1 Lipase 45 Urine Color Yellow Urine Clarity Clear Urine pH 6.0 Ur Specific [place] 1.015 Urine Protein Negative Urine Ketones 15 H Urine Blood Negative Urine Nitrite Negative Urine Bilirubin Negative Urine Urobilinogen 0.2 Ur Leukocyte Esterase Negative Urine Glucose Negative ABO/Rh O Positive Antibody Screen NEGATIVE 05/04/25 05/04/25 05:58 06:55 WBC 10.99 H RBC 4.76 Hgb 14.6 D Hct 45.7 MCV 96 H MCH 30.7 MCHC 31.9 L RDW 13.0 Plt Count 142 MPV 10.2 Immature Gran % 0.4 Neutrophils % 81.1 Lymphocytes % 8.1 Monocytes % 8.0 Eosinophils % 1.9 Basophils % 0.5 Nucleated RBC % 0.0 Absolute Neutrophils 8.91 H Absolute Lymphocytes 0.89 L Absolute Monocytes 0.88 H Absolute Eosinophils 0.21 Absolute Basophils 0.05 PT INR APTT VBG Lactate Sodium Cancelled 139 Potassium Cancelled 4.2 Chloride Cancelled 104 Carbon Dioxide Cancelled 27.8 Anion Gap Cancelled 7.2 BUN Cancelled 17 Creatinine Cancelled 0.9 Est GFR (CKD-EPI 2020) Cancelled 82.15 Glucose Cancelled 118 H Calcium Cancelled 8.7 Magnesium Total Bilirubin AST ALT Alkaline Phosphatase Troponin I Total Protein Albumin Lipase Urine Color Urine Clarity Urine pH Ur Specific [place] Urine Protein Urine Ketones Urine Blood Urine Nitrite Urine Bilirubin Urine Urobilinogen Ur Leukocyte Esterase Urine Glucose ABO/Rh Antibody Screen
[2025-05-04 11:06] VITALS: BP 137/77; PULSE 54; RESP 17; TEMP 36.4; O2SAT 98
--- NOTE | 2025-05-04 11:10 | NUR.NOTE ---
Nursing Note: Documentation by Tanika Elizondo, [employer] student reviewed.
--- NOTE | 2025-05-04 11:20 | W.SURGCON ---
Date of service: 05/04/25 Time of Service: 11:20 Assessment and Plan Assessment and plan (1) Pneumothorax on left: Status: Acute Assessment and plan: Patient is an 89-year-old male who presented to ED after rolling a lawn tractor. On presentation he was hemodynamically stable and underwent further imaging with CT head, C-spine, chest, abdomen pelvis. He was found to have a left pneumothorax without evidence of associated rib fractures. A pigtail chest tube was placed in the ED with slight improvement of the associated left-sided pneumothorax. He was admitted to the hospital overnight for observation and ongoing chest tube management. This morning he states he is doing well. He does note overall soreness but denies any additional injuries. On exam he is afebrile and hemodynamically stable. He has no further evidence of injuries on exam. His left-sided chest tube is in place with minimal serosanguineous output and no evidence of airleak. Would recommend ongoing suction of the left sided chest tube for at least 24hrs and ongoing pain management. Plan: - Continue left sided chest tube to suction -20 - Will obtain AM chest xray tomorrow - Continue to monitor for air leak, none noted this morning - Continue supplemental oxygen - Continue pain control as written - Continue home medications - Ok for regular diet - Ambulate as tolerated and encourage IS - DVT prophyalxis as ordered (2) Pain management: Status: Acute (3) On deep vein thrombosis (DVT) prophylaxis: Status: Acute History of Present Illness Narrative: Patient is a 89-year-old male who presents after a fall from a riding lawnmower. He states that yesterday during the day he was using his riding tractor to pull an antique car. He states that the tractor and the attached car began sliding down a hill and he was ejected from the lawnmower. He does not remember the entire event. He states that his was observing this and when she saw the incident happened she called an ambulance for assistance. His main complaint upon presentation was shortness of breath and chest tightness. He was evaluated in the emergency department and underwent imaging. He was found to have a small left pneumothorax with associated pneumomediastinum. He had a left sided pigtail chest tube placed in the ED and was admitted to the floor for further observation. This morning he states he is doing well. He does note overall soreness. He denies nausea, vomiting, difficulty urinating, chest pain, SOB, dizziness or lightheadedness. He does endorse right thigh pain and soreness. He has been able to tolerate a regulate diet and stand with assistance. He denies shortness of breath but states he does have left sided pain releated to the chest tube. Review of Systems Constitutional Constitutional: Denies chills, Denies fatigue, Denies fever(s), Denies headache(s), Denies weakness, Denies weight gain and Denies weight loss Eyes Eyes: Denies change in vision ENT Ears, Nose, Mouth, and Throat: Denies dizziness, Denies headache(s), Denies nasal congestion and Denies sore throat Cardiovascular Cardiovascular: Denies chest pain and Denies dyspnea Respiratory Respiratory: Denies dyspnea Gastrointestinal Gastrointestinal: Denies abdominal pain, Denies nausea and Denies vomiting Genitourinary Genitourinary: Denies dysuria Musculoskeletal Musculoskeletal: Denies arthralgias, Denies muscle weakness and Denies numbness Integumentary/Breasts Skin/Breast: Denies rash Neurologic Neurologic: Denies dizziness, Denies headache(s), Denies numbness and Denies weakness Psychiatric Psychiatric: Denies anxiety and Denies depression Endocrine Endocrine: Denies fatigue PFSH All Active Problems (Updated 05/03/25 @ 19:08 by Yris Archuleta APRN) On deep vein thrombosis (DVT) prophylaxis (Acute) Pain management (Acute) Pneumothorax on left (Acute) Sensorineural hearing loss (SNHL) of both ears (Acute) Multiple exostoses (Acute) Excessive cerumen in right ear canal (Acute) Coronary artery disease (Chronic) Hypertension (Chronic) ST elevation (STEMI) myocardial infarction (Acute) Laceration of left ring finger with damage to nail w/o foreign body (Acute) Renal cell carcinoma (Acute) Kidney stones (Chronic) Prostate cancer (Chronic) Medical History Actinic keratosis Prostate cancer Surgical History Hx of tonsillectomy History of appendectomy H/O prostatectomy H/O right nephrectomy Social History Smoking/Tobacco Use Status: Never Smoking risk assessment performed?: Yes Alcohol Intake: never Drug use: Never Substance use type: does not use Household members: spouse Housing: house Current gender identity: male Do you feel safe at home: Yes Do you feel safe in your relationship?: Yes Exam Narrative Exam Narrative: General: Well appearing, no acute distress. Skin: Good turgor, superficial abrasion of right bermudez and right thigh HEENT: Normocephalic, atraumatic, no visible masses, neck supple CV: Regular rate and rhythm Lungs: Bilateral equal chest rise, non-labored breathing, left chest tube in place with no airleak present and minimal serosanguinous output Abdomen: Soft, non-tender, non-distended, no masses or organomegaly Extremities: Warm, well perfused, tenderness of right mid thigh at area of abrasion Neurologic: No focal deficits Psychiatric: Alert and oriented, normal mood and affect Results Last Vital Signs Temp 36.4 C L 05/04/25 11:06 Pulse 54 L 05/04/25 11:06 Resp 17 05/04/25 11:06 BP 137/77 05/04/25 11:06 Pulse Ox 98 05/04/25 11:06 Labs 05/04/25 05:58 05/04/25 06:55 Labs: Laboratory Results - last 24 hr 05/03/25 05/03/25 05/04/25 14:00 15:23 01:00 WBC 10.17 RBC 5.37 Hgb 16.6 Hct 50.1 H MCV 93 MCH 30.9 MCHC 33.1 RDW 13.0 Plt Count 192 MPV 9.7 Immature Gran % 0.5 Neutrophils % 87.2 Lymphocytes % 6.4 Monocytes % 4.8 Eosinophils % 0.7 Basophils % 0.4 Nucleated RBC % 0.0 Absolute Neutrophils 8.87 H Absolute Lymphocytes 0.65 L Absolute Monocytes 0.49 Absolute Eosinophils 0.07 Absolute Basophils 0.04 PT 10.9 INR 1.1 APTT 25.4 VBG Lactate 1.3 Sodium 139 Potassium 4.4 Chloride 103 Carbon Dioxide 28.0 Anion Gap 8.0 BUN 21 H Creatinine 1.3 Est GFR (CKD-EPI 2020) 52.84 Glucose 109 H Calcium 9.7 Magnesium 1.8 Total Bilirubin 0.9 AST 26 ALT 24 Alkaline Phosphatase 77 Troponin I 13 14 Total Protein 7.7 Albumin 4.1 Lipase 45 Urine Color Yellow Urine Clarity Clear Urine pH 6.0 Ur Specific [place] 1.015 Urine Protein Negative Urine Ketones 15 H Urine Blood Negative Urine Nitrite Negative Urine Bilirubin Negative Urine Urobilinogen 0.2 Ur Leukocyte Esterase Negative Urine Glucose Negative ABO/Rh O Positive Antibody Screen NEGATIVE 05/04/25 05/04/25 05:58 06:55 WBC 10.99 H RBC 4.76 Hgb 14.6 D Hct 45.7 MCV 96 H MCH 30.7 MCHC 31.9 L RDW 13.0 Plt Count 142 MPV 10.2 Immature Gran % 0.4 Neutrophils % 81.1 Lymphocytes % 8.1 Monocytes % 8.0 Eosinophils % 1.9 Basophils % 0.5 Nucleated RBC % 0.0 Absolute Neutrophils 8.91 H Absolute Lymphocytes 0.89 L Absolute Monocytes 0.88 H Absolute Eosinophils 0.21 Absolute Basophils 0.05 PT INR APTT VBG Lactate Sodium Cancelled 139 Potassium Cancelled 4.2 Chloride Cancelled 104 Carbon Dioxide Cancelled 27.8 Anion Gap Cancelled 7.2 BUN Cancelled 17 Creatinine Cancelled 0.9 Est GFR (CKD-EPI 2020) Cancelled 82.15 Glucose Cancelled 118 H Calcium Cancelled 8.7 Magnesium Total Bilirubin AST ALT Alkaline Phosphatase Troponin I Total Protein Albumin Lipase Urine Color Urine Clarity Urine pH Ur Specific [place] Urine Protein Urine Ketones Urine Blood Urine Nitrite Urine Bilirubin Urine Urobilinogen Ur Leukocyte Esterase Urine Glucose ABO/Rh Antibody Screen Imaging Chest x-ray: report reviewed Abdomen CT scan report/results: report reviewed CT scan - chest: report reviewed
[2025-05-04 15:24] VITALS: BP 129/69; PULSE 54; RESP 16; TEMP 36.7; O2SAT 97
[2025-05-04 19:24] VITALS: BP 124/72; PULSE 59; RESP 17; TEMP 37.2; O2SAT 95
[2025-05-04] MEDS: Docusate Sodium 100 MG CAP PO (20:37)
[2025-05-04 23:53] VITALS: BP 134/71; PULSE 55; RESP 15; TEMP 36.6; O2SAT 98
[2025-05-05] MEDS: LORazepam 0.5 MG TAB PO (00:22)
[2025-05-05] MEDS: Heparin 5,000 UNITS/ML VIAL 5000 UNITS SC ×3 (05:54→21:20)
--- NOTE | 2025-05-05 07:00 | DI.RAD_ITS ---
Exam(s) XR CHEST 2V PA LATERAL EXAM: XR CHEST 2V PA LATERAL CLINICAL HISTORY: status pneumothorax. TECHNIQUE: 2D digital imaging was performed. COMPARISON: CR XR PORTABLE CHEST AP POST LINE from 05/03/2025 FINDINGS: 2 views: Again noted is the recently placed pigtail drainage catheter in the lateral left pleural space and the size the left pneumothorax is again noted to have significantly decreased when compared to the admission images. There is approximately 10 percent remaining pneumothorax. Small left pleural effusion there is some infiltrate in the left lower lobe posterior basal segment. No infiltrate in the opposite-right lung. No pneumothorax on the right side. Heart size is normal. The mediastinum is not widened. IMPRESSION: There is 10 percent remaining pneumothorax on the left side. There is infiltrate in the left lower lobe and a small left pleural effusion. DATA REPOSITORY: RADIATION DOSE DELIVERED:
[2025-05-05 07:30] VITALS: PULSE 62
[2025-05-05] MEDS: Bisoprolol 5 MG TAB PO (07:47)
[2025-05-05] MEDS: Cholecalciferol (Vitamin D3) 1,000 UNIT TAB 1000 UNITS PO (07:47)
[2025-05-05] MEDS: Lisinopril 5 MG TAB PO (07:48)
[2025-05-05] MEDS: Zinc Sulfate 220 MG TAB PO (07:48)
[2025-05-05] MEDS: Ascorbic Acid 500 MG TAB 1000 MG PO (07:48)
[2025-05-05] MEDS: Acetaminophen 325 MG TAB 650 MG PO ×2 (07:48→14:13)
[2025-05-05] MEDS: Normal Saline Flush 10 ML SYR IVP ×2 (07:49→21:50)
[2025-05-05] MEDS: Aspirin 81 MG CHEW PO (07:49)
--- NOTE | 2025-05-05 07:54 | DI.VRAD_ITS ---
PROCEDURE INFORMATION: Exam: XR Chest Exam date and time: 05/05/2025 7:39 AM Age: 89 years old Clinical indication: Other: Status pneumothorax TECHNIQUE: Imaging protocol: Radiologic exam of the chest. Views: 2 views. COMPARISON: CR XR PORTABLE CHEST AP POST LINE 05/03/2025 5:09 PM FINDINGS: Tubes, catheters and devices: Left pleural catheter. Lungs: Streaky bibasilar opacities. Pleural spaces: Small left pneumothorax. Heart/Mediastinum: No cardiomegaly. Bones/joints: No acute abnormality. IMPRESSION: 1. Small left apical pneumothorax. 2. Streaky bibasilar opacities. Consider pneumonia, atelectasis. Follow-up as clinically warranted. Dictated and Authenticated by: Mary Jo Alaniz MD. Orderin Joey Parks MD
[2025-05-05 08:18] VITALS: BP 136/76; PULSE 57; RESP 16; TEMP 36; O2SAT 92
--- NOTE | 2025-05-05 09:19 | PGE_ITS ---
Date of Service Date of service: 05/05/25 Time of Service: 09:19 Assessment and Plan Assessment and plan (1) Pneumothorax on left: Status: Acute Assessment and plan: Patient is an 89-year-old male who presented to ED after rolling a lawn tractor. On presentation he was hemodynamically stable and underwent further imaging with CT head, C-spine, chest, abdomen pelvis. He was found to have a left pneumothorax without evidence of associated rib fractures. A pigtail chest tube was placed in the ED with slight improvement of the associated left-sided pneumothorax. He was admitted to the hospital for observation and ongoing chest tube management. This morning he notes he is doing well and denies ongoing chest pain or SOB. On exam he is afebrile and hemodynamically stable. His left- sided chest tube is in place with minimal serosanguineous output and no evidence of airleak. Will transition chest tube to waterseal today. Plan for chest x- ray tomorrow morning and likely removal of the chest tube tomorrow. Would encourage ambulation today in preparation for discharge home with family. Plan: - Left sided chest tube to water seal today - Will obtain AM chest xray tomorrow and remove chest tube tomorrow AM pending chest xray and water seal trial - Continue to monitor for air leak, none noted again this morning - Continue supplemental oxygen prn - Continue pain control as written - Continue home medications, hold home Plavix - Ok for regular diet - Plan for ambulation today as tolerated with assistance - Continue to encourage IS - DVT prophyalxis as ordered (2) Pain management: Status: Acute Subjective Subjective Interval history since last seen: States he is doing well this morning. He denies any shortness of breath, chest pain, fevers, chills. He denies any nausea or vomiting. He has been able to tolerate a regular diet. He is passing flatus but is not had a bowel movement yet. He is hoping to ambulate today. He otherwise has no complaints or no new injuries noted. Exam Narrative Exam Narrative: General: Well appearing, no acute distress. Skin: Good turgor, no visible rashes or lesion HEENT: Normocephalic, atraumatic, no visible masses, neck supple CV: Regular rate and rhythm Lungs: Bilateral equal chest rise, non-labored breathing, left chest tube in place with minimal serosanguinous drainage, no air leak noted Abdomen: Soft, non-distended Extremities: Warm, well perfused Neurologic: No focal deficits Psychiatric: Alert and oriented, normal mood and affect Objective Last Vital Signs Temp 36.0 C L 05/05/25 08:18 Pulse 57 L 05/05/25 08:18 Resp 16 05/05/25 08:18 BP 136/76 05/05/25 08:18 Pulse Ox 92 05/05/25 08:18 Time Spent with Patient Time Spent with Patient: 25-34 minutes Time was spent: preparing to see the patient(eg.review tests), obtaining and/or reviewing separately otained hiistory, ordering medications,tests, procedures, indepentently interpreting results and counseling the patient
[2025-05-05] MEDS: Docusate Sodium 100 MG CAP PO ×2 (09:33→14:13)
[2025-05-05] MEDS: Polyethylene Glycol 3350 17 GM PACKET PO ×2 (09:33→14:13)
[2025-05-05 11:12] VITALS: BP 118/75; PULSE 51; RESP 16; TEMP 36.5; O2SAT 93
[2025-05-05 15:05] VITALS: BP 110/64; PULSE 56; RESP 16; TEMP 36.3; O2SAT 99
[2025-05-05 19:57] VITALS: BP 134/66; PULSE 63; RESP 18; TEMP 36.8; O2SAT 95
[2025-05-06] MEDS: Heparin 5,000 UNITS/ML VIAL 5000 UNITS SC (05:16)
--- NOTE | 2025-05-06 07:00 | DI.RAD_ITS ---
Exam(s) XR CHEST 2V PA LATERAL EXAM: XR CHEST 2V PA LATERAL CLINICAL HISTORY: Evaluate left pneumothorax, water seal trial. TECHNIQUE: 2D digital imaging was performed. COMPARISON: CR,XR XR CHEST 2V PA LATERAL from 05/05/2025 FINDINGS: 2 views: Coronary artery stent noted Heart size is normal. The mediastinum is not widened. There are no infiltrates nor significant pleural effusions. The position of the left pleural pigtail catheter appears somewhat retracted and some of the poles of the pigtail appear to be in the chest wall and extrathoracic. The size of the left apical pneumothorax is unchanged, approximately 10 percent IMPRESSION: No change in size of the left pneumothorax.However, appears at the pigtail drainage catheter in the lateral left pleural space has been pulled or migrated slightly outwards such that not all of the holes within the pigtail are with in the pleural space. This may be come significant. There is presently no evidence of increasing subcutaneous emphysema. DATA REPOSITORY: RADIATION DOSE DELIVERED:
--- NOTE | 2025-05-06 08:57 | DI.VRAD_ITS ---
PROCEDURE INFORMATION: Exam: XR Chest Exam date and time: 05/06/2025 8:53 AM Age: 89 years old Clinical indication: Other: Evaluate left pneumothorax, water seal trial TECHNIQUE: Imaging protocol: Radiologic exam of the chest. Views: 2 views. COMPARISON: CR XR CHEST 2V PA LATERAL 05/05/2025 7:39 AM FINDINGS: Tubes, catheters and devices: Left pleural catheter. Lungs: Minimal bibasilar atelectasis. Pleural spaces: Trace left apical pneumothorax without significant change. Small left pleural effusion. Heart/Mediastinum: No cardiomegaly. Bones/joints: No acute abnormality. IMPRESSION: No change in left pneumothorax. Dictated and Authenticated by: Mary Jo Alaniz MD. Orderin Tomas Nuñez MD
--- NOTE | 2025-05-06 08:58 | W.PM.PROGNOT ---
Date of Service Date of service: 05/06/25 Time of Service: 08:58 Assessment and Plan Assessment and plan (1) Pneumothorax on left: Status: Acute Assessment and plan: Patient is an 89-year-old male who presented to ED after rolling a lawn tractor. On presentation he was hemodynamically stable and underwent further imaging with CT head, C-spine, chest, abdomen pelvis. He was found to have a left pneumothorax without evidence of associated rib fractures. A pigtail chest tube was placed in the ED with slight improvement of the associated left-sided pneumothorax. He was admitted to the hospital for observation and ongoing chest tube management. This morning he notes he is doing well. He denies any shortness of breath or chest pain. On exam he has minimal serosanguineous output from his left sided chest tube without any evidence of an air leak. On exam he has minimal serosanguineous output from his left sided chest tube without any evidence of an air leak. His a.m. chest x-ray was obtained which showed a stable tiny apical left pneumothorax with no change during the water seal trial. This finding was discussed with him today as well as the recommendation to remove the left-sided chest tube at this time. The left sided pigtail chest tube was removed without difficulty and he tolerated this well. Today we will plan for increased ambulation as he would like to discharge potentially later today. Will plan for a post chest tube removal x-ray this afternoon prior to discharge. If this is stable and he is able to ambulate without difficulty then he can likely discharge later today. Plan: - AM chest xray with stable findings - Left sided chest tube removed without difficulty, tolerated well. - Will obtain chest xray in PM to evaluate s/p removal of chest tube (13:00 Chest xray) - If PM chest xray stable and able to ambulate without difficulty then ok for discharge home this afternoon with family - Discharge instructions discussed with him at bedside this morning - Continue pain control as written - Continue home medications, hold home Plavix - Ok for regular diet - Continue to encourage IS - DVT prophyalxis as ordered (2) Pain management: Status: Acute Subjective Subjective Interval history since last seen: He states he is doing well this morning. He notes that yesterday he was able to ambulate with assistance however this was difficult given his chest tube in place. He would like to continue to ambulate today. He denies any shortness of breath or chest pain. He notes he was able to have a bowel movement yesterday. He is tolerating a regular diet and urinating appropriately. He denies any fevers, nausea, vomiting, or abdominal pain. Exam Narrative Exam Narrative: General: Well appearing, no acute distress. Skin: Good turgor, no visible rashes or lesion HEENT: Normocephalic, atraumatic, no visible masses, neck supple CV: Regular rate and rhythm Lungs: Bilateral equal chest rise, non-labored breathing, left chest tube in place with minimal serosanguinous output and no evidence of air leak Abdomen: Non-distended Extremities: Warm, well perfused Neurologic: No focal deficits Psychiatric: Alert and oriented, normal mood and affect Objective Last Vital Signs Temp 36.8 C 05/05/25 19:57 Pulse 63 05/05/25 19:57 Resp 18 05/05/25 19:57 BP 134/66 05/05/25 19:57 Pulse Ox 95 05/05/25 19:57 Time Spent with Patient Time Spent with Patient: <25 minutes Time was spent: preparing to see the patient(eg.review tests), obtaining and/or reviewing separately otained hiistory, ordering medications,tests, procedures, indepentently interpreting results and counseling the patient
--- NOTE | 2025-05-06 10:18 | DI.VRAD_ITS ---
PROCEDURE INFORMATION: Exam: XR Chest Exam date and time: 05/06/2025 9:54 AM Age: 89 years old Clinical indication: Other: Evaluate left pneumothorax S/P chest tube removal TECHNIQUE: Imaging protocol: Radiologic exam of the chest. Views: 2 views. COMPARISON: CR XR CHEST 2V PA LATERAL 05/06/2025 8:53 AM FINDINGS: Tubes, catheters and devices: Interval removal of left chest tube. Lungs: Unremarkable. No consolidation. Pleural spaces: Stable small left apical pneumothorax with 11 mm pleural separation. Heart/Mediastinum: Unremarkable. No cardiomegaly. Bones/joints: Unremarkable. IMPRESSION: 1. Interval removal of left chest tube. 2. Stable small left apical pneumothorax with 11 mm pleural separation. Dictated and Authenticated by: Johanna Lopez MD. Orderin Tomas Nuñez MD
[2025-05-06] MEDS: Bisoprolol 5 MG TAB PO (10:21)
[2025-05-06] MEDS: Zinc Sulfate 220 MG TAB PO (10:21)
[2025-05-06] MEDS: Ascorbic Acid 500 MG TAB 1000 MG PO (10:22)
[2025-05-06] MEDS: Cholecalciferol (Vitamin D3) 1,000 UNIT TAB 1000 UNITS PO (10:22)
[2025-05-06] MEDS: Docusate Sodium 100 MG CAP PO (10:22)
[2025-05-06] MEDS: Normal Saline Flush 10 ML SYR IVP (10:22)
[2025-05-06] MEDS: Lisinopril 5 MG TAB PO (10:22)
[2025-05-06] MEDS: Aspirin 81 MG CHEW PO (10:22)
--- NOTE | 2025-05-06 12:30 | PDOC.CMDIS ---
Date of service: 05/06/25 Time of Service: 16:10 LACE Index Scoring Tool Questions: Length of Stay (in days): 3 Was the patient admitted via the E.D.?: Yes E.D. Visits: 1 Answers: Total Score: 7 Risk of Readmission: Low Risk Care Management Discharge Plan Reason for Hospitalization: Pneumothorax Discharge Plan: Eric is discharged home via private vehicle with family. Patient will follow up with community providers and continue per discharge plan of care. No new services were ordered prior to this discharge. Patient/Family Education Needs: Review discharge instructions and plan to follow up after discharge. Discuss ask me three.
--- NOTE | 2025-05-06 13:00 | DI.RAD_ITS ---
Exam(s) XR CHEST 2V PA LATERAL EXAM: XR CHEST 2V PA LATERAL CLINICAL HISTORY: evaluate left pneumothorax s/p chest tube removal. TECHNIQUE: 2D digital imaging was performed. COMPARISON: CR,XR XR CHEST 2V PA LATERAL from 05/06/2025 . Also other recent chest x-rays FINDINGS: 2 views: Heart size is normal. The mediastinum is not widened. The left pleural space catheter is been removed. The size of the 10 percent ipsilateral pneumothorax has not increased. No new infiltrates. IMPRESSION: Left side chest tube has been removed. The left apical pneumothorax is unchanged from earlier same date. DATA REPOSITORY: RADIATION DOSE DELIVERED:
--- NOTE | 2025-05-06 13:58 | DSE_ITS ---
Date of service: 05/06/25 Time of Service: 13:58 DS: Diagnosis Discharge Diagnosis (1) Pneumothorax on left: Status: Acute Asessment and Plan: Left-sided chest tube removed this morning after extended waterseal trial without change in tiny apical left pneumothorax. The chest tube was removed without difficulty. A post pull chest x-ray showed stable appearance of the tiny left apical pneumothorax. He was ambulating independently and meeting all milestones for discharge. He would like to go home later today with family. Post admission instructions discussed with him and he will follow-up in the general surgery clinic in 2 weeks. (2) Pain management: Status: Acute Asessment and Plan: Tylenol as needed following discharge. Discharge Plan Disposition Patient Disposition: Home Condition: Good Discharge Details Reason For Visit: Pneumothorax Admit Date/Time: 05/03/25 17:49 Admit Provider: Savannah Marin Attending Provider: Savannah Marin Primary Care Provider: Kay Healy [facility] Course Hospital Course: Patient is an 89-year-old male who presented to ED after rolling a lawn tractor. On presentation he was hemodynamically stable and underwent further imaging with CT head, C-spine, chest, abdomen pelvis. He was found to have a left pneumothorax without evidence of associated rib fractures. A pigtail chest tube was placed in the ED with improvement of the associated left-sided pneumothorax. He was admitted to the hospital for observation and ongoing chest tube management. His chest tube remained to suction for 24 hours. A subsequent chest x-ray showed a tiny residual left apical pneumothorax. There was no evidence of air leak so the decision was made to waterseal the chest tube for 24 hours. The following morning a chest x-ray was obtained which showed a stable small left apical pneumothorax. Given his ongoing stability and follow-up x- rays the decision was made to remove the left-sided chest tube. The left sided chest tube was removed without difficulty. A post pull chest x-ray showed a stable appearance of a tiny left apical pneumothorax. This finding was discussed with him prior to his discharge. At the time of discharge he was ambulating independently, tolerating regular diet, having appropriate bowel function and urinating appropriately. He was deemed stable for discharge home with follow-up in the general surgery clinic. Recommendations for Follow Up Recommended tests to be ordered by follow up provider: Follow up in general surgery clinic in 2 weeks Home Meds and New Rx's Prescriptions: Continued vitamin K2 100 mcg capsule 100 mcg PO DAILY nitroglycerin 0.4 mg tablet, sublingual 0.4 mg sublingual Q5M PRN (Reason: chest pain) Qty: 30 3RF Rx Instructions: do not exceed 3 doses per episode cholecalciferol (vitamin D3) 25 mcg (1,000 unit) capsule 25 mcg PO DAILY zinc 50 mg tablet 50 mg PO DAILY coenzyme Q10 [CoQ-10] 100 mg capsule 100 mg PO DAILY aspirin 81 mg tablet 81 mg PO DAILY lisinopril 5 mg tablet 5 mg PO DAILY ascorbate calcium (vitamin C) 500 mg tablet 1 gm PO DAILY clopidogrel 75 mg tablet 75 mg PO DAILY Patient Comments: TAKE ONE TABLET BY MOUTH EVERY DAY bisoprolol fumarate 5 mg tablet 5 mg PO DAILY Patient Comments: TAKE ONE TABLET BY MOUTH EVERY DAY Discharge Instructions Instructions: Pneumothorax (Collapsed Lung) (DC), Chest Tubes Additional Instructions: You were admitted to the hospital following an accident for a pneumothorax or collapsed lung. There was no evidence of additional injuries. You had a chest tube placed during this admission. You should remove the chest tube dressing in 48 hours. If there is further drainage from this incision you may cover it with a dry dressing. It is okay to shower with this dressing in place. Once the dressing is removed allow warm soapy water to run over the incision and pat dry. You should slowly resume normal activity as able. You should avoid flying for the next 3 to 4 weeks. The general surgery office will call you for a follow-up in 2 weeks. Referrals: Savannah Marin MD [ [facility] STAFF PHYSICIAN, Surgery] Activity:: Activity as Tolerated Equipment/Supplies:: No Equipment Needed Diet:: Normal Diet Discharge Orders Discharge Orders: Discharge Order (Routine); Ordered 05/06/25 Ordered By: Savannah Marin DS: Summary Time Spent with Patient providing and/or coordinating discharge services: Less than 30 minutes Status at Discharge Functional status at discharge: independent ambulation Overall status at discharge: patient is progressing back to baseline Mental Status: mental status grossly normal Speech and Movement: speech and movement normal Mood: congruent mood Affect: normal affect Exam Narrative Exam Narrative: General: Well appearing, no acute distress. Skin: Good turgor, no visible rashes or lesion HEENT: Normocephalic, atraumatic, no visible masses, neck supple CV: Regular rate and rhythm Lungs: Bilateral equal chest rise, non-labored breathing, left sided chest tube dressing in place Abdomen: non-distended Extremities: Warm, well perfused Neurologic: No focal deficits Psychiatric: Alert and oriented, normal mood and affect Psych Mental Status: mental status grossly normal Speech and Movement: speech and movement normal Mood: congruent mood Affect: normal affect DS: Data Vitals/I&O Vitals and I&O: Vital Signs Temperature 36.8 C 05/05/25 19:57 Temperature Source Tympanic 05/05/25 19:57 Pulse 63 05/05/25 19:57 Pulse Rhythm Regular 05/03/25 20:12 Pulse 71 05/03/25 18:10 Respiratory Rate 18 05/05/25 19:57 Respiratory Effort Non-Labored 05/03/25 20:12 Respiratory Depth Shallow 05/03/25 20:12 Respiratory Pattern Normal 05/03/25 20:12 Blood Pressure 134/66 05/05/25 19:57 Blood Pressure Mean 88 05/05/25 19:57 Pulse Oximetry 95 05/05/25 19:57 Oxygen Delivery Method Room Air 05/05/25 19:57 Oxygen Flow Rate 0 05/05/25 19:57 Pain Level 2 05/05/25 14:13 Comment PT sleeping refused vitals. 05/06/25 03:16 Intake & Output 05/05/25 05/06/25 05/06/25 23:59 11:59 23:59 Intake Total 600 / 820 Output Total 309 / 669 1000 / 1000 Balance 291 / 151 -1000 / -1000 Intake: Oral 600 / 820 Output: Chest Tube Drainage Urine 300 / 650 1000 / 1000 Other: Urine Color Yellow Yellow Urine Appearance Clear Clear Urine Odor Normal Strong Comment Pt voided with BM Stool Size Small Stool Characteristics [facility] Chest x-ray: My impression: Stable tiny apical left pneumothorax after removal of chest tube. No change from previous xray. Lab and Radiology Reports: Laboratory Results WBC 10.99 10^3/uL (4.4-10.8) H 05/04/25 05:58 RBC 4.76 10^6/uL (4.36-5.78) 05/04/25 05:58 Hgb 14.6 g/dL (13.5-17.5) D 05/04/25 05:58 Hct 45.7 % (40.0-50.0) 05/04/25 05:58 MCV 96 fL (80-95) H 05/04/25 05:58 MCH 30.7 pg (27.0-33.0) 05/04/25 05:58 MCHC 31.9 % (32.0-36.0) L 05/04/25 05:58 RDW 13.0 % (11.8-14.1) 05/04/25 05:58 Plt Count 142 10^3/uL (130-400) 05/04/25 05:58 MPV 10.2 fL (8.0-11.0) 05/04/25 05:58 Immature Gran % 0.4 % 05/04/25 05:58 Neutrophils % 81.1 % 05/04/25 05:58 Lymphocytes % 8.1 % 05/04/25 05:58 Monocytes % 8.0 % 05/04/25 05:58 Eosinophils % 1.9 % 05/04/25 05:58 Basophils % 0.5 % 05/04/25 05:58 Nucleated RBC % 0.0 % (0.0-0.3) 05/04/25 05:58 Absolute Neutrophils 8.91 10^3/uL (1.2-6.7) H 05/04/25 05:58 Absolute Lymphocytes 0.89 10^3/uL (1.2-3.4) L 05/04/25 05:58 Absolute Monocytes 0.88 10^3/uL (0.1-0.8) H 05/04/25 05:58 Absolute Eosinophils 0.21 10^3/uL (0.0-0.7) 05/04/25 05:58 Absolute Basophils 0.05 10^3/uL (0.0-0.2) 05/04/25 05:58 PT 10.9 sec (9.1-11.1) 05/03/25 14:00 INR 1.1 (0.9-1.1) 05/03/25 14:00 APTT 25.4 sec (20.6-30.2) 05/03/25 14:00 VBG Lactate 1.3 mmol/L (<or=2.0) 05/03/25 14:00 Sodium 139 mmol/L (136-145) 05/04/25 06:55 Potassium 4.2 mmol/L (3.5-5.1) 05/04/25 06:55 Chloride 104 mmol/L (98-107) 05/04/25 06:55 Carbon Dioxide 27.8 mmol/L (21.0-32.0) 05/04/25 06:55 Anion Gap 7.2 mmol/L (3-11) 05/04/25 06:55 BUN 17 mg/dL (7-18) 05/04/25 06:55 Creatinine 0.9 mg/dL (0.70-1.30) 05/04/25 06:55 Est GFR (CKD-EPI 2020) 82.15 (mL/min/1.73m2) 05/04/25 06:55 Glucose 118 mg/dL (74-106) H 05/04/25 06:55 Calcium 8.7 mg/dL (8.5-10.1) 05/04/25 06:55 Magnesium 1.8 mg/dL (1.8-2.4) 05/03/25 15:23 Total Bilirubin 0.9 mg/dL (0.2-1.0) 05/03/25 14:00 AST 26 U/L (15-37) 05/03/25 14:00 ALT 24 U/L (16-63) 05/03/25 14:00 Alkaline Phosphatase 77 U/L (46-116) 05/03/25 14:00 Troponin I 14 ng/L (<or=76) 05/03/25 15:23 Total Protein 7.7 g/dL (6.4-8.2) 05/03/25 14:00 Albumin 4.1 g/dL (3.4-5.0) 05/03/25 14:00 Lipase 45 U/L (<78) 05/03/25 14:00 Urine Color Yellow (Yellow) 05/04/25 01:00 Urine Clarity Clear (Clear) 05/04/25 01:00 Urine pH 6.0 (5-8) 05/04/25 01:00 Ur Specific [place] 1.015 (1.005-1.025) 05/04/25 01:00 Urine Protein Negative mg/dL (Neg-Trace) 05/04/25 01:00 Urine Ketones 15 mg/dL (Negative) H 05/04/25 01:00 Urine Blood Negative (Negative) 05/04/25 01:00 Urine Nitrite Negative (Negative) 05/04/25 01:00 Urine Bilirubin Negative (Negative) 05/04/25 01:00 Urine Urobilinogen 0.2 mg/dL (Up to 0.2) 05/04/25 01:00 Ur Leukocyte Esterase Negative (Negative) 05/04/25 01:00 Urine Glucose Negative mg/dL (Negative) 05/04/25 01:00 ABO/Rh O Positive 05/03/25 14:00 Antibody Screen NEGATIVE 05/03/25 14:00 PFSH All Active Problems On deep vein thrombosis (DVT) prophylaxis (Acute) Pain management (Acute) Pneumothorax on left (Acute) Sensorineural hearing loss (SNHL) of both ears (Acute) Multiple exostoses (Acute) Excessive cerumen in right ear canal (Acute) Coronary artery disease (Chronic) Hypertension (Chronic) ST elevation (STEMI) myocardial infarction (Acute) Laceration of left ring finger with damage to nail w/o foreign body (Acute) Renal cell carcinoma (Acute) Kidney stones (Chronic) Prostate cancer (Chronic) Medical History Actinic keratosis Prostate cancer Surgical History Hx of tonsillectomy History of appendectomy H/O prostatectomy H/O right nephrectomy Social History Smoking/Tobacco Use Status: Never Smoking risk assessment performed?: Yes Alcohol Intake: never Drug use: Never Substance use type: does not use Household members: spouse Housing: house Current gender identity: male Do you feel safe at home: Yes Do you feel safe in your relationship?: Yes Time Spent with Patient Time Spent with Patient: <45 minutes Time was spent: preparing to see the patient(eg.review tests), obtaining and/or reviewing separately otained hiistory, ordering medications,tests, procedures, indepentently interpreting results and counseling the patient
== END 2025-05-06 14:53 | disposition home or self-care (01) | DRG 201 ==
LOC: ER 18:18 → MS 05-04 08:08
PROVIDERS: Family Medicine; Nurse Practitioner Acute Care; Admitting Provider Student in an Organized Health Care Education/Training Program; Emergency Provider General Practice; PCP Family Medicine; Responsible Provider Student in an Organized Health Care Education/Training Program; Visit Provider Student in an Organized Health Care Education/Training Program
DX: I10 Essential (primary) hypertension; Z79.899 Other long term (current) drug therapy; S27.0XXA Traumatic pneumothorax, initial encounter; Y93.89 Activity, other specified; W30.89XA Contact with other specified agricultural machinery, initial encounter; T79.7XXA Traumatic subcutaneous emphysema, initial encounter; H90.3 Sensorineural hearing loss, bilateral; I25.2 Old myocardial infarction; Z90.5 Acquired absence of kidney; Z85.46 Personal history of malignant neoplasm of prostate; Z85.528 Personal history of other malignant neoplasm of kidney; Z95.5 Presence of coronary angioplasty implant and graft; I77.810 Thoracic aortic ectasia; K57.30 Diverticulosis of large intestine without perforation or abscess without bleeding; Z95.1 Presence of aortocoronary bypass graft; I25.119 Atherosclerotic heart disease of native coronary artery with unspecified angina pectoris; S00.83XA Contusion of other part of head, initial encounter; S50.811A Abrasion of right forearm, initial encounter; S80.811A Abrasion, right lower leg, initial encounter; N20.0 Calculus of kidney; E86.0 Dehydration; G89.11 Acute pain due to trauma; R07.89 Other chest pain
CPT/HCPCS: 00123; 32556; 36415; 71045; 74177; 80048; 80053; 83690; 86850; 86900; 86901; 93005; 96374; 96375; 99222; 99231; 99238; 99285; 70450; 71046; 71260; 72125; 81003; 83605; 83735; 84484; 85025; 85610; 85730; 93010; 99223; J0131; J1171; J1644; J2270

== ENCOUNTER → 2025-05-21 10:03 | Outpatient (BNVA) | payer MEDICARE, SELFPAY | PROVIDERS: PCP Internal Medicine; Referring Provider Internal Medicine; Visit Provider Student in an Organized Health Care Education/Training Program | DX: J93.83 Other pneumothorax (principal) | CPT/HCPCS: 99213 ==

== ENCOUNTER 2025-05-22 11:00 | Outpatient (RCR) | payer SELFPAY ==
[2025-04-24 11:24] VITALS: BP 124/67; PULSE 50
[2025-04-26 12:58] VITALS: BP 153/74; PULSE 57
[2025-05-01 11:13] VITALS: BP 141/72; PULSE 52; O2SAT 92
[2025-05-03 11:00] VITALS: BP 140/79; PULSE 60
[2025-05-22 12:08] VITALS: BP 146/78; PULSE 62; O2SAT 96
== END 2025-05-22 23:59 | disposition home or self-care (01) ==
LOC: CR 11:00
PROVIDERS: PCP Family Medicine; Visit Provider Internal Medicine Cardiovascular Disease
DX: R69 Illness, unspecified (principal)

== ENCOUNTER 2025-05-24 11:01 | Outpatient (RCR) | payer SELFPAY ==
[2025-05-23 00:10] VITALS: BP 146/78; PULSE 62
[2025-05-24 11:26] VITALS: BP 129/73; PULSE 57
== END 2025-06-22 23:59 | disposition home or self-care (01) ==
LOC: CR 11:01
PROVIDERS: PCP Family Medicine; Visit Provider Internal Medicine Cardiovascular Disease
DX: R69 Illness, unspecified (principal)

== ENCOUNTER → 2025-08-07 00:24 | Outpatient (CLI) | payer MEDICARE, SELFPAY ==
--- NOTE | 2025-08-07 07:30 | DI.US_ITS ---
Exam(s) US RENAL EXAM: US RENAL CLINICAL HISTORY: monitoring left kidney stones,renal cell ca,h/o rt nephrectomy,z90.5. TECHNIQUE: Gastelum scale, color and spectral Doppler were used. COMPARISON: US US RENAL from 05/10/[address] CHEST/ABD/PEL W from 05/03/2025 FINDINGS: The patient is status post right nephrectomy. Renal size in cm: Left: 13.7. Echogenicity: Normal. Hydronephrosis: No. Cyst or mass: There are several simple renal cysts again seen. No follow-up is recommended. The largest is in the midpole and measures 2.3 x 1.9 x 2.2 cm. Nephrolithiasis: The previously seen calcification in the left kidney is not visualized sonographically. Other findings: None. Bladder:The bladder is not well distended. Ureteral jets: Left: Visualized and unremarkable. Prevoid vol:45 cc Postvoid vol:0 cc Prostate: Not visualized on this examination. Renal color flow: There is blood flow seen to the left ovary. IMPRESSION: 1. Status post right nephrectomy. 2. No renal stones are seen on the left sonographically. There is no hydronephrosis. DATA REPOSITORY:
== END ==
LOC: DI 00:25
PROVIDERS: PCP Family Medicine; Visit Provider Nurse Practitioner Gerontology
DX: C64.2 Malignant neoplasm of left kidney, except renal pelvis (principal); N20.0 Calculus of kidney; Z90.5 Acquired absence of kidney
CPT/HCPCS: 76770

== ENCOUNTER 2025-08-07 01:34 | Outpatient (CLI) | payer MEDICARE, SELFPAY ==
[2025-08-07 10:27] LABS: BUN 20 mg/dL (9-23)
== END 2025-08-07 01:35 | disposition home or self-care (01) ==
LOC: LBO 01:34
PROVIDERS: PCP Family Medicine; Visit Provider Nurse Practitioner Gerontology
DX: C64.9 Malignant neoplasm of unspecified kidney, except renal pelvis (principal); Z90.5 Acquired absence of kidney
CPT/HCPCS: 36415; 76770; 84520; 82565

== ENCOUNTER → 2025-08-14 08:11 | Outpatient (BNVA) | payer MEDICARE, SELFPAY | PROVIDERS: PCP Family Medicine; Referring Provider Internal Medicine; Visit Provider Nurse Practitioner Gerontology | DX: Z90.5 Acquired absence of kidney (principal); C64.9 Malignant neoplasm of unspecified kidney, except renal pelvis; C61 Malignant neoplasm of prostate; N20.0 Calculus of kidney | CPT/HCPCS: 99214 ==